=== PATIENT | male | born 1945 | race Caucasian/White ===

== ENCOUNTER 2023-06-26 12:58 | Emergency (ER) | payer MEDICARE, SELFPAY ==
[2023-06-26 13:02] VITALS: BP 154/74; PULSE 87; RESP 18; TEMP 36.8; O2SAT 98; BMI 21.8
--- NOTE | 2023-06-26 13:09 | DI.RAD.S_ITS ---
PROCEDURE: XR SHOULDER LT MIN 2V INDICATIONS: fall TECHNIQUE: 2 views of the shoulder were acquired. COMPARISON: None. FINDINGS: Bones: There is a nondisplaced fracture involving the humeral neck without displacement. Severe osteoarthritic changes. Suspect an intra-articular body in the superior glenohumeral joint. Mild acromioclavicular joint degeneration. Osteopenia. No suspicious bony lesions. Visualized ribs appear intact. Soft tissues: No suspicious soft tissue calcifications. IMPRESSION: 1. Nondisplaced humeral neck fracture. 2. Severe osteoarthritis. 3. Suspect an intra-articular body in the superior glenohumeral joint. 4. Osteopenia. Dictated by: Loyda Bennett M.D. on 06/26/2023 at 14:00 Approved by: Loyda Bennett M.D. on 06/26/2023 at 14:02
--- NOTE | 2023-06-26 14:23 | ED_ITS ---
HPI - Extremity Injury (Upper) <YESENIA Santana - Last Filed: 06/26/23 16:39> General Chief Complaint: Extremity Injury, Upper Stated Complaint: fell/lt shoulder inj Time Seen by Provider: 06/26/23 13:27 Source: patient Mode of arrival: Ambulatory History of Present Illness HPI narrative: 77-year-old male, daily smoker, presents to the emergency department with left shoulder pain status post fall approximately 2 hours ago. Patient was walking, lost his balance and fell over landing on his left shoulder. Patient denies hitting his head or any loss of consciousness. Patient is not on blood thinners. Patient has had an issue with falling over the last month due to losing balance. Extensive history with cancer, etc.. Related Data Previous Rx's Medication Instructions Recorded oxycodone 5 mg capsule 5 mg PO TID PRN pain #10 caps 06/26/23 Allergies Allergy/AdvReac Type Severity Reaction Status Date / Time codeine AdvReac Unknown Gastrointestinal Verified 06/26/23 14:43 Upset Review of Systems <YESENIA Santana - Last Filed: 06/26/23 16:39> Review of Systems Narrative: Narrative: See HPI. GENERAL: Denies chills, fatigue, fever, sweats. HEENT: Denies sinus pain, ear pain, sore throat, difficulty swallowing, dizziness. RESPIRATORY: Denies dyspnea, cough, wheezing, sputum. CARDIOVASCULAR: Denies chest pain, palpitations, edema. GASTROINTESTINAL: Denies nausea, vomiting, abdominal pain, diarrhea, constipation. MSK: Denies weakness. Endorses left shoulder pain. SKIN: Denies rash, skin lesions, or pruritis. NEUROLOGIC: Denies weakness, dizziness, headache, numbness, confusion. PSYCHIATRIC: No concerning psychosocial issues. Patient History <YESENIA Santana - Last Filed: 06/26/23 16:39> Social History Smoking Status: Current every day smoker Smoking Status: Current every day smoker tobacco type: cigarettes alcohol intake frequency: other Substance Use Type: does not use Exam <YESENIA Santana - Last Filed: 06/26/23 16:39> Narrative Exam Narrative: Exam Narrative: GENERAL: This is a well-nourished, well-developed patient, in no acute distress. HEAD: Atraumatic. Normocephalic. EYES: Pupils equal round and reactive. No scleral icterus, injection or drainage. ENT: Nose without bleeding, purulent drainage. Airway patent. NECK: Trachea midline. No JVD or lymphadenopathy. Nontender. No C-spine tenderness. CARDIOVASCULAR: Regular rate and rhythm without murmurs, peripheral pulses intact, cap refill <2 sec. RESPIRATORY: Normal respiratory rate and effort. MSK: Moves all extremities. Normal range of motion, no clubbing or edema. Neurovascularly intact. NEURO: A&O x 3. SKIN: Warm, dry, no rashes or lesions noted. SHOULDER: There is no swelling, bruising or asymmetry. There is tenderness to palpation over the proximal humerus, but no tenderness to AC joint, coracoid or glenoid processes. There is no soft tissue tenderness to palpation. Sensation grossly intact. Active and passive range of motion is limited due to pain. Resistive strength intact. Range of motion of the elbow is normal. The contralateral shoulder exam is unremarkable. Initial Vital Signs Initial Vital Signs: Vital Signs Temperature 98.2 F 06/26/23 13:02 Pulse Rate 87 06/26/23 13:02 Respiratory Rate 18 06/26/23 13:02 Blood Pressure 154/74 H 06/26/23 13:02 Pulse Oximetry 98 06/26/23 13:02 Oxygen Delivery Method Room Air 06/26/23 13:02 Reviewed <Morro Charles DO - Last Filed: 06/26/23 16:57> Initial Vital Signs Initial Vital Signs: Vital Signs Temperature 98.2 F 06/26/23 13:02 Pulse Rate 87 06/26/23 13:02 Respiratory Rate 18 06/26/23 13:02 Blood Pressure 154/74 H 06/26/23 13:02 Pulse Oximetry 98 06/26/23 13:02 Oxygen Delivery Method Room Air 06/26/23 13:02 Course <YESENIA Santana - Last Filed: 06/26/23 16:39> Orders Ordered: ED Orders 06/26/23 13:09 XR shoulder LT min 2V Stat 06/26/23 14:55 CT UE LT wo con Stat Discontinued Medications Hydrocodone Bitart/Acetaminophen (Hydrocodone/Acet 10/325 Tablet) 1 tab PO NOW ONE Stop: 06/26/23 14:41 Last Admin: 06/26/23 14:47 Dose: 1 tab Documented By: PANFILO Consultations Consultation #1: Dr. Rani Schreiber, orthopedic surgery, recommended a CT of left upper extremity. Vital Signs Vital signs: Vital Signs - 8 hr 06/26/23 13:02 Temperature 98.2 F Pulse Rate 87 Respiratory Rate 18 Blood Pressure 154/74 H Pulse Oximetry 98 Oxygen Delivery Method Room Air <Morro Charlse DO - Last Filed: 06/26/23 16:57> Orders Ordered: ED Orders 06/26/23 13:09 XR shoulder LT min 2V Stat 06/26/23 14:55 CT UE LT wo con Stat Discontinued Medications Hydrocodone Bitart/Acetaminophen (Hydrocodone/Acet 10/325 Tablet) 1 tab PO NOW ONE Stop: 06/26/23 14:41 Last Admin: 06/26/23 14:47 Dose: 1 tab Documented By: KF Vital Signs Vital signs: Vital Signs - 8 hr 06/26/23 13:02 Temperature 98.2 F Pulse Rate 87 Respiratory Rate 18 Blood Pressure 154/74 H Pulse Oximetry 98 Oxygen Delivery Method Room Air MDM - Extremity Injury (Upper) <YESENIA Santana - Last Filed: 06/26/23 16:39> Differential Diagnosis Differential diagnosis: Likely fracture of humerus; Unlikely dislocation of shoulder Imaging Data Extremity x-ray #1: Radiologist's Impression: [place] [address] XRay Report Signed Patient: Ramirez Foster MR#: [id number] : 1945 Acct:[id number] Age/Sex: 77 / M Date of Service: 06/26/23 Loc: ED Accession Number: [id number] Procedure: XR shoulder LT min 2V Ordering Provider: Morro Charles D.O. PROCEDURE: XR SHOULDER LT MIN 2V INDICATIONS: fall TECHNIQUE: 2 views of the shoulder were acquired. COMPARISON: None. FINDINGS: Bones: There is a nondisplaced fracture involving the humeral neck without displacement. Severe osteoarthritic changes. Suspect an intra-articular body in the superior glenohumeral joint. Mild acromioclavicular joint degeneration. Osteopenia. No suspicious bony lesions. Visualized ribs appear intact. Soft tissues: No suspicious soft tissue calcifications. IMPRESSION: 1. Nondisplaced humeral neck fracture. 2. Severe osteoarthritis. 3. Suspect an intra-articular body in the superior glenohumeral joint. 4. Osteopenia. Dictated by: Loyda Bennett M.D. on 06/26/2023 at 14:00 Approved by: Loyda Bennett M.D. on 06/26/2023 at 14:02 CT scan - Left UE: Radiologist's Impression: [address] [address] [address] Scan Report Signed Patient: Ramirez Foster MR#: [id number] : 1945 Acct:[id number] Age/Sex: 77 / M Date of Service: 06/26/23 Loc: ED Accession Number: [id number] Procedure: CT UE LT wo con Ordering Provider: Morro Robertson PROCEDURE: CT UE LT WO CON INDICATIONS: Left humerus fracture TECHNIQUE: Noncontrast 1-1.5 mm thick sections acquired from the acromioclavicular joint to the inferior scapula, with coronal and sagittal reformatting. COMPARISON: X-ray left shoulder, 06/26/2022. FINDINGS: Image quality: Excellent. Bones: There is a minimally displaced, comminuted humeral neck and proximal shaft fracture. Osteopenia. Severe osteoarthritic changes in glenohumeral joint with large periarticular osteophytes, subchondral sclerosis and cyst formation. There is a 2.6 cm intra-articular body in the superior glenohumeral joint. Mild acromioclavicular joint degeneration. Soft tissues: There is moderate glenohumeral joint effusion. No soft tissue mass or large hematoma. There is a 1.6 cm cyst in the left thyroid lobe. IMPRESSION: 1. Minimally displaced comminuted humeral neck and proximal shaft fracture. 2. Moderate glenohumeral joint effusion. 3. Severe osteoarthritis. 4. There is a 2.6 cm intra-articular body in the superior glenohumeral joint. 5. A 1.6 cm cyst in the left thyroid lobe. Consider thyroid ultrasound for follow-up Dictated by: Loyda Bennett M.D. on 06/26/2023 at 16:10 Approved by: Loyda Bennett M.D. on 06/26/2023 at 16:17 [facility] Narrative Medical decision making narrative: 77-year-old male with left shoulder injury. X-ray revealed a nondisplaced humeral neck fracture with intra-articular body in the superior glenohumeral joint. Discussed case with Dr. Charles of the ED. Contacted on-call orthopedic doctor, Dr. Rani Schreiber, who agreed that a CT may be helpful. Patient given Vicodin in clinic, fitted for a sling and short course of pain medications sent to pharmacy. Patient to follow up with Orthopedics 1st thing tomorrow morning. Discussed plan of care and return precautions with patient and spouse, who verbalized understanding and was agreeable with course of action. Discharge Plan Departure Patient Disposition: Home Clinical Impression: Fracture of humerus Qualifiers: Encounter type: initial encounter Humerus Location: surgical neck Fracture type: closed Fracture morphology: 2-part Fracture alignment: nondisplaced Laterality: left Qualified Code(s): S42.225A - 2-part nondisplaced fracture of surgical neck of left humerus, initial encounter for closed fracture Instructions: DI for Shoulder Fracture Activity Restrictions/Additional Instructions: *You have been diagnosed with left humerus fracture. We have placed you in a sling for your comfort. Recommend supportive care that includes cool compress to the shoulder, Tylenol or ibuprofen as needed for discomfort. Will provide a short course of pain medication. Please make sure you are stable on your feet before ambulating, especially after taking the pain medication. We have gotten a CT of your shoulder that the orthopedic surgeon will review. You will need to follow-up with orthopedics tomorrow morning. *What to do: *Please continue to take your regular medications as directed. [x ] New medication prescriptions sent to your pharmacy: [[facility] ] [ ] New medication written as a paper prescription [ ] No new medications given *Please follow up with your primary care provider in 2-3 days, call for an appointment. Let them know you were seen in the Emergency Department and that we ask that you be seen in follow up. We will electronically transmit a record of today's note if your PCP is in our system *If you do not have a primary care provider please contact the [facility] Resource line at [phone]. They will ask some questions about your medical history and help get you set up with a doctor in the community. ? Return to ER if you should have any new, worsening or concerning symptoms, such as worsening pain, severe headache, confusion, chest pain, difficulty breathing, fever greater than 101 F, shaking chills, persistent vomiting to the point that you cannot drink fluids, or other new or worsening symptoms. Prescriptions: New oxycodone 5 mg capsule 5 mg PO TID PRN (Reason: pain) Qty: 10 0RF Referrals: Jennifer Schreiber MD [Physician] - (Please evaluate and treat left humeral neck fracture.) Stand Alone Forms: Patient Portal/API ED Sign-out <Morro Charles DO - Last Filed: 06/26/23 16:57> Cosign ED Attending Cosignature Attestation: Dr Charles Co-Sign Statement: I was available for consultation during this patient's emergency department visit. This chart is signed by myself for administrative purposes only. I did not have direct contact with this patient during this visit. They were seen independently by the APC.
--- NOTE | 2023-06-26 14:28 | PC.NURSE ---
provider at bedside
[2023-06-26] MEDS: HYDROCODONE/ACET 10/325 TABLET 1 TAB PO (14:47)
--- NOTE | 2023-06-26 14:55 | DI.CT.S_ITS ---
PROCEDURE: CT UE LT WO CON INDICATIONS: Left humerus fracture TECHNIQUE: Noncontrast 1-1.5 mm thick sections acquired from the acromioclavicular joint to the inferior scapula, with coronal and sagittal reformatting. COMPARISON: X-ray left shoulder, 06/26/2022. FINDINGS: Image quality: Excellent. Bones: There is a minimally displaced, comminuted humeral neck and proximal shaft fracture. Osteopenia. Severe osteoarthritic changes in glenohumeral joint with large periarticular osteophytes, subchondral sclerosis and cyst formation. There is a 2.6 cm intra-articular body in the superior glenohumeral joint. Mild acromioclavicular joint degeneration. Soft tissues: There is moderate glenohumeral joint effusion. No soft tissue mass or large hematoma. There is a 1.6 cm cyst in the left thyroid lobe. IMPRESSION: 1. Minimally displaced comminuted humeral neck and proximal shaft fracture. 2. Moderate glenohumeral joint effusion. 3. Severe osteoarthritis. 4. There is a 2.6 cm intra-articular body in the superior glenohumeral joint. 5. A 1.6 cm cyst in the left thyroid lobe. Consider thyroid ultrasound for follow-up Dictated by: Loyda Bennett M.D. on 06/26/2023 at 16:10 Approved by: Loyda Bennett M.D. on 06/26/2023 at 16:17
== END 2023-06-26 15:37 | disposition home or self-care (01) ==
PROVIDERS: Emergency Provider Registered Nurse
DX: S42.225A 2-part nondisplaced fracture of surgical neck of left humerus, initial encounter for closed fracture (principal); W18.30XA Fall on same level, unspecified, initial encounter
CPT/HCPCS: 73030; 73200; 99284

== ENCOUNTER 2023-08-22 15:01 | Emergency (ER) | payer MEDICARE, SELFPAY ==
[2023-08-22] VITALS (13 sets, daily range): BP systolic 96–134; BP diastolic 63–79; PULSE 88–103; RESP 15–25; TEMP 36.8–36.9; O2SAT 93–97; BMI 22.1
--- NOTE | 2023-08-22 15:28 | DI.RAD.S_ITS ---
PROCEDURE: XR CHEST 1V INDICATIONS: fall TECHNIQUE: One view of the chest was acquired. COMPARISON: None. FINDINGS: Surgical changes and devices: Sutures within the left apex. Lungs and pleura: Lungs are clear. No pleural effusions or pneumothorax. Mediastinum: Mediastinal contours appear normal. Heart size is normal. Bones and chest wall: No suspicious bony lesions. Overlying soft tissues appear unremarkable. IMPRESSION: No acute cardiopulmonary abnormality is seen. Dictated by: Cem Smiley M.D. on 08/22/2023 at 16:11 Approved by: Cem Smiley M.D. on 08/22/2023 at 16:11
--- NOTE | 2023-08-22 15:28 | DI.CT.S_ITS ---
PROCEDURE: CT HEAD/BRAIN WO CON INDICATIONS: falls TECHNIQUE: Noncontrast 4.5 mm thick angled axial sections acquired from the foramen magnum to the vertex, with coronal and sagittal reformats. For radiation dose reduction, the following was used: automated exposure control, adjustment of mA and/or kV according to patient size. COMPARISON: None. FINDINGS: Image quality: Motion degraded. CSF spaces: Basal cisterns are patent. No extra-axial fluid collections. The ventricles are symmetric in size and shape. Brain: No intracranial bleeds or masses. Encephalomalacia within the left inferior frontal lobe, may be sequela of prior trauma. There is cerebral volume loss for age, with resultant ventricular and sulcal prominence. There are periventricular and deep white matter chronic small vessel ischemic changes. There is intracranial internal carotid artery atherosclerosis. Skull and face: Posttraumatic changes to the left inferior frontal bone Calvarium and visualized facial bones appear intact, without suspicious lesions. Sinuses: Visualized sinuses and mastoids are clear. IMPRESSION: No acute intracranial pathology. Posttraumatic changes in the inferior left frontal lobe. Dictated by: Cem Smiley M.D. on 08/22/2023 at 16:13 Approved by: Cem Smiley M.D. on 08/22/2023 at 16:15
[2023-08-22 15:54] LABS: Hematocrit 27.3 % (41-53); Hemoglobin 8.7 g/dL (13.5-17.5); Mean Corpuscular HGB Conc 31.8 % (30-36); Mean Corpuscular Volume 88.2 fL (80-100); Platelet Count 476 X10^3/uL (150-400); Red Blood Cell Count 3.09 X10^6/uL (4.5-5.9)
[2023-08-22 15:55] LABS: Add Manual Diff / Slide Review YES; White Blood Cell Count 33.6 X10^3/uL (4.5-11.0)
[2023-08-22 16:01] LABS: INR 1.1 (0.9-1.3); Prothrombin Time 13.1 SECONDS (9.4-12.5)
[2023-08-22 16:03] LABS: Lactate (Lactic Acid) 0.9 mmol/L (0.7-2.1)
[2023-08-22 16:04] LABS: Alanine Aminotransferase 18 IU/L (<50); Albumin 3.3 g/dL (3.5-5.0); Albumin Globulin Ratio 0.9 (1.0-2.8); Alkaline Phosphatase 110 U/L (38-126); Aspartate Aminotransferase 27 IU/L (17-59); BUN Creatinine Ratio 17.4 (6-22); Bilirubin Total 0.7 mg/dL (0.2-1.3); Blood Urea Nitrogen 23 mg/dL (9-20); Calcium 9.4 mg/dL (8.4-10.2); Carbon Dioxide 27 mmol/L (22-32); Chloride 104 mmol/L (98-107); Creatine Kinase 24 U/L (55-170); Estimated Glomerular Filt Rate 56 mL/min (>60); Globulin 3.6 g/dL (1.7-4.1); Glucose 95 mg/dL (80-110); HEMOLYSIS < 15 (0-50); Potassium 3.9 mmol/L (3.4-5.1); Sodium 138 mmol/L (137-145); Total Protein 6.9 g/dL (6.3-8.2)
[2023-08-22 16:11] LABS: PTT Partial Thromboplastin Tim 29 SECONDS (25.1-36.5)
[2023-08-22 16:15] LABS: Appearance Urine UA CLOUDY; Bilirubin Urine UA NEGATIVE (NEGATIVE); Color Urine UA PINK; Glucose Urine UA NEGATIVE (Negative); Ketones Urine UA NEGATIVE (NEGATIVE); Leukocyte Esterase Urine UA 3+ (NEGATIVE); Nitrite Urine UA NEGATIVE (Negative); Occult Blood Urine UA 3+ (Negative); Protein Urine UA 3+ (Negative); Urobilinogen Urine UA 0.2 E.U./dL (0.2)
[2023-08-22 16:16] LABS: Troponin I < 0.012 ng/mL (0.01-0.034)
[2023-08-22 16:20] LABS: Procalcitonin 0.23 ng/mL (<0.5)
[2023-08-22 16:23] LABS: Bacteria Urine Few (2-10); Culture Indicated Urine Specimen Cultured; RBC Urine 30-100/HPF (0-5/HPF); Squamous Epithelial Cell Urine 0-1 /HPF (0-5/HPF); Urine Volume 10mL (spun); WBC Urine 30-100/HPF (0-5/HPF)
[2023-08-22 16:23] LABS: Total Cells Counted 200
[2023-08-22 16:24] LABS: Lymphocytes Percent Manual 2.5 % (25-45); Monocytes Percent Manual 4.5 % (2-11); Neutrophils Absolute Manual 31248 /uL (3000-5900)
[2023-08-22 16:25] LABS: Anisocytosis 1+
[2023-08-22 16:59] LABS: Adenovirus Not Detected (Not Detect); B. parapertussis Not Detected (Not Detecte); Bordetella pertussis Not Detected (Not Detect); Chlamydophila pneumoniae Not Detected (Not Detect); Coronavirus 229E Not Detected (Not Detect); Coronavirus HKU1 Not Detected (Not Detect); Coronavirus NL 63 Not Detected (Not Detect); Coronavirus OC43 Not Detected (Not Detect); Human Metapneumovirus Not Detected (Not Detect); Human Rhinovirus/Enterovirus Not Detected (Not Detect); Influenza A Not Detected (Not Detect); Influenza B Not Detected (Not Detect); Mycoplasma pneumoniae Not Detected (Not Detect); Parainfluenza Virus 1 Not Detected (Not Detect); Parainfluenza Virus 2 Not Detected (Not Detect); Parainfluenza Virus 3 Not Detected (Not Detect); Parainfluenza Virus 4 Not Detected (Not Detect); Respiratory Syncytial Virus Not Detected (Not Detect); SARS- CoV-2 Not Detected (Not Detecte)
--- NOTE | 2023-08-22 17:13 | ED_ITS ---
HPI - Sepsis General Chief Complaint: Urogenital-Male Evaluation Sepsis Screen: Possible Sepsis Risk Sepsis Infection Criteria Present: Documented Infection Narrative: Patient 77-year-old male history of bladder cancer prostate cancer recent admission at [facility] with bilateral nephrostomy tubes placed states that he has been for maybe a week he had an extended stay there. She is here today because he is more confused. She reports that he wondered off last night, he told her that she fell there is no obvious sign of trauma not on any anticoagulation we know of. He is chronic ongoing groin pain which states is his cancer pain. She reports that he is still on an antibiotic which looks like Levaquin every 48 hours. He is afebrile he is able to answer questions and follow commands but overall appears weak. No significant cough chest pain or shortness of breath. Patient History Social History Smoking Status: Current every day smoker Smoking Status: Current every day smoker tobacco type: cigarettes alcohol intake frequency: other Substance Use Type: does not use Exam Initial Vital Signs Initial Vital Signs: Vital Signs Pulse Rate 103 H 08/22/23 15:19 Blood Pressure 96/72 08/22/23 15:19 Pulse Oximetry 96 08/22/23 15:19 GENERAL: Chronically ill cachectic 77-year-old male HEENT: Head atraumatic,EOMI, pupils reactive, face symmetric, moist mucous membranes CARDIOVASCULAR: Regular rate and rhythm without murmurs, rubs or gallops. RESPIRATORY: Breath sounds equal bilaterally, no wheezes rales or rhonchi. ABDOMEN: Soft, nontender. Normoactive bowel sounds all 4 quadrants. No guarding or rebound. EXTREMITIES: Normal range of motion, no clubbing or edema. Neurovascularly intact NEUROLOGICAL: Alert and oriented x4. SKIN: Warm, dry, no laceration, no petechiae, no rashes or lesions. Course Orders Ordered: Discontinued Medications Hydromorphone HCl (Hydromorphone 0.5 Mg Inj) 0.5 mg IV NOW ONE Stop: 08/22/23 17:23 Last Admin: 08/22/23 17:28 Dose: 0.5 mg Documented By: EYAD Cefepime HCl 1 gm/ Sodium (Chloride) 100 mls @ 200 mls/hr IV NOW ONE Stop: 08/22/23 17:04 Last Infusion: 08/22/23 18:05 Dose: Infused Documented By: Admin: 08/22/23 17:15 Dose: 200 mls/hr Documented By: EYAD Vancomycin HCl (Vancomycin) 1,000 mg in 200 mls @ 200 mls/hr IV NOW ONE Stop: 08/22/23 18:02 Last Infusion: 08/22/23 19:07 Dose: Infused Documented By: Admin: 08/22/23 18:06 Dose: 200 mls/hr Documented By: MARIO Sodium Chloride (Normal Saline 0.9%) 1,000 mls @ 1,000 mls/hr IV BOLUS ONE Stop: 08/22/23 18:24 Last Infusion: 08/22/23 19:01 Dose: Infused Documented By: Admin: 08/22/23 17:29 Dose: 1,000 mls/hr Documented By: EYAD Vital Signs Vital signs: Vital Signs - 8 hr 08/22/23 15:19 08/22/23 15:19 08/22/23 15:25 Temperature Pulse Rate 103 H Respiratory Rate Blood Pressure 96/72 129/69 Pulse Oximetry 96 Oxygen Delivery Method 08/22/23 15:25 08/22/23 15:30 08/22/23 15:30 Temperature 98.5 F Pulse Rate 99 H 100 H Respiratory Rate 16 22 Blood Pressure 96/72 124/65 Pulse Oximetry 97 96 Oxygen Delivery Method Room Air 08/22/23 15:30 08/22/23 16:00 08/22/23 16:13 Temperature Pulse Rate 98 H 93 H Respiratory Rate 15 18 Blood Pressure 120/69 Pulse Oximetry 96 94 Oxygen Delivery Method 08/22/23 16:13 08/22/23 16:30 08/22/23 16:30 Temperature Pulse Rate 92 H 96 H Respiratory Rate 25 H 23 Blood Pressure 132/69 Pulse Oximetry 97 95 Oxygen Delivery Method Sepsis Evaluation (ED) Triage Screening Sepsis Screen: Possible Sepsis Risk Level 1 - Infection Sepsis Infection Criteria Present: Documented Infection Response It is my opinion that his patient have a likely infectious etiology for meeting sepsis criteria: Does Not Fluid calculation based on 30 mL/kg within 1hr of criteria: N/A Antibiotics initiated within 1 hr of Sepis dx: Yes Tissue Perfusion Reassessed within 6 hrs of infusion start time: No MDM - Sepsis Lab Data 08/22/23 15:20 04/01/24 15:20 Labs: Lab Results 08/22/23 08/22/23 Range/Units 15:20 16:05 WBC 33.6 H* (4.5-11.0) X10^3/uL RBC 3.09 L (4.5-5.9) X10^6/uL Hgb 8.7 L (13.5-17.5) g/dL Hct 27.3 L (41-53) % MCV 88.2 (80-100) fL MCH 28.0 (26-34) PG MCHC 31.8 (30-36) % RDW 16.0 H (11.6-14.8) % Plt Count 476 H (150-400) X10^3/uL Neut % (Auto) Not Reportable Lymph % (Auto) Not Reportable [place] % (Auto) Not Reportable Eos % (Auto) Not Reportable Baso % (Auto) Not Reportable Lymph # (Auto) Not Reportable [place] # (Auto) Not Reportable Baso # (Auto) Not Reportable Total Counted 200 Seg Neutrophils % 93.0 H (38-70) % Lymphocytes % (Manual) 2.5 L (25-45) % Monocytes % (Manual) 4.5 (2-11) % Neutrophils # (Manual) 15429 H (6063-5062) /uL RBC Morphology See below Anisocytosis 1+ H PT 13.1 H (9.4-12.5) SECONDS INR 1.1 (0.9-1.3) APTT 29 (25.1-36.5) SECONDS Sodium 138 (137-145) mmol/L Potassium 3.9 (3.4-5.1) mmol/L Chloride 104 (98-107) mmol/L Carbon Dioxide 27 (22-32) mmol/L BUN 23 H (9-20) mg/dL Creatinine 1.32 H (0.66-1.25) mg/dL Estimated GFR 56 L (>60) mL/min BUN/Creatinine Ratio 17.4 (6-22) Glucose 95 (80-110) mg/dL Lactate 0.9 (0.7-2.1) mmol/L Calcium 9.4 (8.4-10.2) mg/dL Total Bilirubin 0.7 (0.2-1.3) mg/dL AST 27 (17-59) IU/L ALT 18 (<50) IU/L Alkaline Phosphatase 110 (38-126) U/L Total Creatine Kinase 24 L (55-170) U/L Troponin I < 0.012 (0.01-0.034) ng/mL Total Protein 6.9 (6.3-8.2) g/dL Albumin 3.3 L (3.5-5.0) g/dL Globulin 3.6 (1.7-4.1) g/dL Albumin/Globulin Ratio 0.9 L (1.0-2.8) Procalcitonin 0.23 (<0.5) ng/mL Urine Color [place] Urine Appearance Cloudy Urine pH 7.0 (4.5-8.0) Ur Specific [place] 1.020 (1.000-1.035) Urine Protein 3+ H (Negative) Urine Glucose (UA) Negative (Negative) g/dL Urine Ketones Negative (NEGATIVE) Urine Occult Blood 3+ H (Negative) Urine Nitrate Negative (Negative) Urine Bilirubin Negative (NEGATIVE) Urine Urobilinogen 0.2 (0.2) E.U./dL Ur Leukocyte Esterase 3+ H (NEGATIVE) Urine RBC 30-100/hpf H (0-5/HPF) Urine WBC 30-100/hpf H (0-5/HPF) Ur Squamous Epith Cells 0-1 /hpf (0-5/HPF) Urine Bacteria Few (2-10) H (None) Urine Yeast 5-10/hpf H (None) Ur Culture Indicated? Specimen cultured Vol Urine Centrifuged 10ml (spun) Chlamy pneumoniae PCR Not detected (Not Detect) Adenovirus (PCR) Not detected (Not Detect) B.parapertussis DNA PCR Not detected (Not Detecte) Coronavirus OC43 (PCR) Not detected (Not Detect) Coronavirus HKU1 (PCR) Not detected (Not Detect) Coronavirus 229E (PCR) Not detected (Not Detect) SARS-CoV-2 (PCR) Not detected (Not Detecte) Coronavirus NL63 (PCR) Not detected (Not Detect) Human Metapneumovir PCR Not detected (Not Detect) Influenza Type A (PCR) Not detected (Not Detect) Influenza Type B (PCR) Not detected (Not Detect) M. pneumoniae (PCR) Not detected (Not Detect) Parainfluenza 1 (PCR) Not detected (Not Detect) Parainfluenza 2 (PCR) Not detected (Not Detect) Parainfluenza 3 (PCR) Not detected (Not Detect) Parainfluenza 4 (PCR) Not detected (Not Detect) RSV (PCR) Not detected (Not Detect) Entero/Rhino (PCR) Not detected (Not Detect) MDM Narrative Medical decision making narrative: MDM CC: Confusion wandering Complicating co-morbidities: Bladder cancer prostate cancer Corroborating data: [ ] Data collected from: [ ] Medical records reviewed: Spoke with physician from [facility] Differential considered: Sepsis intracranial hemorrhage Exam documented above, pertinent findings include: Chronically ill male nephrostomy tube with urine bilaterally Mxi catheter with urine Lab Test results independently reviewed as above. 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 Ybarra from [facility] is very familiar with patient she took care of him while he was admitted there. After multiple hours of trying to get records she kindly spoke with me we went over test results today. She reports that he had elevated white count at that time of 33 as well they thought it was secondary to cancer. He was infected with E coli bacteremia he is currently on Levaquin every other day. During his hospital stay he got pretty significant delirium. She also states that family has been set up with home health care. had reported that patient was wandering and having confusion prior to hospital admission and then confusion got worse during hospital admission. Not surprising that he wandered off last night. At this time blood work seems stable, nephrostomy tubes are working. Treatments: IV antibiotics, IV fluids Re-evaluations: [ ] Discussion: Patient chronically ill weak but no neuro deficits, consulting with hospitalist at [facility] patient seems to be at baseline. He does have some baseline confusion probably worsened by recent infection and hospitalization. Head CT today is negative for any acute event. Long discussion with . She does have help home health has started this week they have another person coming tomorrow. Talked about the only other option if this does not work would be placement which she has not quite ready for. At this time no need for admission patient is discharged. Discharge Plan Departure Patient Disposition: Home Clinical Impression: Delirium Instructions: Delirium Activity Restrictions/Additional Instructions: *You have been diagnosed with delirium *What to do: At this time blood work is overall stable no cause of wandering. Continue to use home health *Continue to take medications as directed *Follow up with your primary care provider in 2-3 days or call [phone] *Return to ER if you should have increasing confusion any new, worsening or concerning symptoms Prescriptions: No Action oxycodone 5 mg capsule 5 mg PO TID PRN (Reason: pain) Qty: 10 0RF Referrals: Miscellaneous,Doctor, [Primary Care Provider] - Stand Alone Forms: Patient Portal/API
[2023-08-22] MEDS: CEFEPIME 1 GM in SODIUM CHLORIDE 0.9% 100 ML IV (17:15)
--- NOTE | 2023-08-22 17:22 | DI.CT.S_ITS ---
PROCEDURE: CT CHEST ABD PEL W CON INDICATIONS: bladder cancer prostte cancer, nephrostomy tubes, pain TECHNIQUE: After the administration of intravenous contrast, 5 mm thick sections acquired from the lung apices to the symphysis. 5 mm coronal and sagittal reformats were performed, with additional 7 mm MIP reformats through the lungs. For radiation dose reduction, the following was used: automated exposure control, adjustment of mA and/or kV according to patient size. COMPARISON: None. FINDINGS: Image quality: Excellent. CHEST: Lower Neck: No enlarged lymph nodes. Thyroid: Bilateral thyroid nodules, measuring 1.3 cm in left thyroid lobe and 0.7 cm in the right thyroid lobe.. Axillae: No enlarged lymph nodes. Chest Wall: Unremarkable. Lungs and Pleura: Moderate emphysema. There are multiple lung nodules bilaterally, more numerous in right lung. Reference nodules: -0.9 cm; right middle lobe; series 3 image 184. Left basilar scars and atelectasis. No pneumothorax or pleural effusions. No consolidation. Heart: Heart size is normal. No pericardial effusion. Thoracic Vessels: The aorta and pulmonary arteries demonstrate normal size. Mediastinum and [place]: No enlarged lymph nodes. Esophagus: No wall thickening. Small hiatal hernia. ABDOMEN: Liver: There is a 1.7 cm indeterminate hypodensity in the lateral aspect of the anterior segment of the right hepatic lobe. Gallbladder: No radiopaque gallstones or wall thickening. Biliary ducts: No biliary dilation. Pancreas: No ductal dilation. Spleen: Size is within normal limits. Adrenal Glands: No adrenal nodules. Kidneys and Ureters: Bilateral percutaneous nephrostomies. Mild left hydronephrosis. No solid mass. No complex renal cystic lesion which requires follow up. Stomach and Bowel: Normal bowel caliber, without significant wall thickening. Diverticulosis without diverticulitis. There is a large amount of stool in colon. Peritoneum: No abnormal intraperitoneal fluid. No free air. Ventral Wall: No significant ventral hernia. Abdominal Nodes: No retroperitoneal or mesenteric adenopathy by size criteria. Vessels: Aorta and inferior vena cava are normal in size. PELVIS: Pelvic Organs: Unremarkable. Bladder: There is irregular bladder wall thickening consistent with known bladder cancer. There is a Mix catheter. The tip of the catheter appears within the bladder. Prostate is not well seen because of strong metallic artifact from bilateral hip arthroplasties Pelvic Nodes: No enlarged lymph nodes. Miscellaneous: No inguinal hernias are seen. Bones: Bilateral hip arthroplasties with strong metallic artifacts partially obscure pelvis. No aggressive osseous abnormality. Scoliosis. Moderate to severe spondylitic changes in lower cervical spine, thoracic and lumbar spine. IMPRESSION: Suboptimal Cancer evaluation in absence of IV and oral contrast. 1. Multiple lung nodules are present bilaterally, more numerous in right lung. An infectious or inflammatory process is favored. Neoplasm is less likely but not entirely excluded. 2. Left left basilar scars and atelectasis. 3. A 1.7 cm indeterminate hepatic hypodensity. Consider further evaluation with MRI. 4. 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 5. Diverticulosis without diverticulitis. 6. A large amount of stool in colon. 7. Bilateral ureteral stents. Mild left hydronephrosis is present. 8. Prostate and inferior aspect of the urinary bladder is obscured by strong metallic artifacts from bilateral hip arthroplasties. Dictated by: Loyda Bennett M.D. on 08/22/2023 at 18:50 Approved by: Loyda Bennett M.D. on 08/22/2023 at 19:00
[2023-08-22] MEDS: HYDROMORPHONE 0.5 MG INJ IV (17:28)
[2023-08-22] MEDS: SODIUM CHLORIDE 0.9% 1,000 ML 1000 ML IV (17:29)
[2023-08-22] MEDS: VANCOMYCIN 1,000 MG/200 ML PIGGYBACK 200 MG IV (18:06)
[2023-09-01 08:06] LABS: Misc. to WA State Lab SEE SCANNED REPORTS
== END 2023-08-22 19:25 | disposition home or self-care (01) ==
PROVIDERS: Emergency Provider Emergency Medicine
DX: R41.0 Disorientation, unspecified (principal); C61 Malignant neoplasm of prostate; Z20.822 Contact with and (suspected) exposure to COVID-19
CPT/HCPCS: 36415; 70450; 71045; 71260; 74177; 80053; 81001; 82550; 83605; 84145; 84484; 85007; 85025; 85610; 85730; 87040; 87077; 87086; 87633; 93005; 93010; 96365; 96367; 96375; 99284; J0692; J1170; Q9967

== ENCOUNTER 2023-09-01 09:06 | Emergency (ER) | payer MEDICARE, SELFPAY ==
[2023-09-01] VITALS (13 sets, daily range): BP systolic 121–153; BP diastolic 60–82; PULSE 91–107; RESP 17–29; TEMP 37.3–37.4; O2SAT 96–98; BMI 24.3
--- NOTE | 2023-09-01 09:11 | DI.RAD.S_ITS ---
PROCEDURE: XR HIP W PEL IF DONE RT 2V INDICATIONS: fall hip pain TECHNIQUE: AP pelvis with lateral view(s) of the right hip(s). COMPARISON: None. FINDINGS: Bones: Bilateral hip arthroplasties. Left hip arthroplasty incompletely imaged. Right hip arthroplasty unremarkable with no evidence of hardware failure or loosening. No fractures or dislocations. Pelvic ring appears intact. No suspicious bony lesions. Soft tissues: The visualized bowel gas pattern is normal. No suspicious soft tissue calcifications. IMPRESSION: Expected appearance of right hip arthroplasty. No acute fracture or dislocation. Dictated by: Abdirahman Calixto M.D. on 09/01/2023 at 10:54 Approved by: Abdirahman Calixto M.D. on 09/01/2023 at 10:55
--- NOTE | 2023-09-01 09:20 | PC.NURSE ---
Pt has 2x nephrostomy and 1x urinary catheter tubes, denies history or urinary complications and states ask the hospital when asking patient why he has the catheters. PT states his is his caregiver, and says she does a great job.
--- NOTE | 2023-09-01 09:32 | ED_ITS ---
HPI - Fall General Chief Complaint: Fall Stated Complaint: GLF T-1 Time Seen by Provider: 09/01/23 09:11 Source: patient, EMS, RN notes reviewed and old records reviewed Mode of arrival: EMS Limitations: no limitations History of Present Illness HPI Narrative: 77-year-old male history of bladder cancer, prostate cancer with bilateral nephrostomy tubes who had a ground level fall yesterday. Patient states he lost his balance fell onto his right hip. States he was able to get himself up off the ground and did walk some yesterday but was painful. Has not tried to walk or move today parts quite a bit of pain in the right hip. He denies injuries elsewhere. Denies hitting his head. No anticoagulants reported. No neck or back pain, no chest pain or shortness of breath. No lightheadedness or passing out. No nausea or vomiting. Denies any diarrhea or constipation. Has Mix catheter as well as 2 urostomy tubes on the right and left which appeared to be draining appropriately. Patient records note that on August 21 he was seen here, had a white count of 33, had E coli bacteremia while hospitalized with significant delirium. Related Data Previous Rx's Medication Instructions Recorded oxycodone 5 mg capsule 5 mg PO TID PRN pain #10 caps 06/26/23 oxycodone 5 mg tablet 5 mg PO Q6H PRN pain #10 tabs 09/01/23 Allergies Allergy/AdvReac Type Severity Reaction Status Date / Time codeine AdvReac Unknown Gastrointestinal Verified 09/01/23 09:12 Upset Review of Systems Review of Systems ROS Unobtainable: All systems reviewed & are unremarkable except as noted in HPI and below Patient History Social History Smoking Status: Current every day smoker Smoking Status: Current every day smoker tobacco type: cigarettes alcohol intake frequency: other Substance Use Type: does not use Exam Narrative Exam Narrative: GEN: Patient appears in mild distress. HEAD: No evidence of trauma, no raccoon/Farooq sign. NECK: Nontender, painless range of motion, trachea midline Negative Nexus criteria, midline line tenderness, distracting injury, altered mental status, neuro deficit, recent EtOH. EYES: PERRLA, EOMI ENT: External inspection normal, trachea is midline, Nares are clear, no septal hematoma, no dental or oral injury, airway is normal and with normal occlusion, No bony tenderness RESP: Chest is nontender and has symmetric movement, no ecchymosis, breath sounds are normal no crackles, wheezes or rales CVS: Heart sounds are normal, no murmur noted, No JVD. ABG/GI: Nontender, soft, normal bowel sounds, no distention, no organomegaly, pelvic rock is negative, patient has bilateral nephrostomy tubes I do appear to be in place. They are both draining yellow urine as well as a urethral catheter which is draining as well. NEURO: Oriented AOx3, neuro is grossly intact, sensation and motor is normal all 4 extremities moving, cranial nerves II through XII are intact, GCS is 15 PSYCH: Normal mood and affect SKIN: Intact, warm and dry, no crepitus and without decubitus BACK: No CVA tenderness, no vertebral tenderness, no step-off's, no crepitus EXT: Atraumatic, patient does not have any pain over the right or left trochanter but does have with movement of the right lower extremity. Patient is quite uncomfortable with passive or active movement. No obvious swelling ecchymosis or skin changes. No bony tenderness on examination. Patient does have some mild tenderness over the thigh with squeeze but also states my hand is very cold. No pedal edema, normal color and temperature, normal range of motion of extremities patient's left lower extremity as well as bilateral upper extremities on examination. Initial Vital Signs Initial Vital Signs: Vital Signs Temperature 99.3 F 09/01/23 09:08 Pulse Rate 99 H 09/01/23 09:08 Respiratory Rate 18 09/01/23 09:08 Blood Pressure 135/74 09/01/23 09:08 Pulse Oximetry 97 09/01/23 09:08 Oxygen Delivery Method Room Air 09/01/23 09:08 Course Orders Ordered: ED Orders 09/01/23 09:11 XR hip w pel if done RT 2V Stat 09/01/23 09:50 CBC Auto Diff [Complete Blood Count AUTO DIFF] Stat CMP [Comprehensive Metabolic Panel] Stat Lactate (Lactic Acid) Stat Lipase Stat PTT Partial Thromboplastin Jayant Stat Procalcitonin Stat Prothrombin Time INR Stat 09/01/23 10:18 Blood Culture Stat 09/01/23 11:05 CT kidney ureter bladder (KUB) Stat 09/01/23 11:54 UA Complete [Urinalysis and Microscopic] Stat Urine Culture Stat Discontinued Medications Morphine Sulfate (Morphine 4 Mg/Ml Inj) 4 mg IV NOW ONE Stop: 09/01/23 09:44 Last Admin: 09/01/23 09:51 Dose: 4 mg Documented By: LEW Ondansetron HCl (Ondansetron 4 Mg/2 Ml Inj) 4 mg IV NOW ONE Stop: 09/01/23 09:44 Last Admin: 09/01/23 09:51 Dose: 4 mg Documented By: LEW Oxycodone/Acetaminophen (Oxycodone/Acetaminophen 5/325 Tablet) 2 tab PO NOW ONE Stop: 09/01/23 13:46 Last Admin: 09/01/23 13:50 Dose: 2 tab Documented By: MARIA ESTHER Vital Signs Vital signs: Vital Signs - 8 hr 09/01/23 10:30 09/01/23 10:30 09/01/23 10:44 Pulse Rate 95 H Respiratory Rate Blood Pressure 131/68 153/73 H Pulse Oximetry 97 Oxygen Delivery Method 09/01/23 10:44 09/01/23 11:00 09/01/23 11:01 Pulse Rate 93 H 93 H Respiratory Rate 20 24 Blood Pressure 128/66 Pulse Oximetry 97 96 Oxygen Delivery Method 09/01/23 11:01 09/01/23 11:20 09/01/23 11:20 Pulse Rate 92 H 94 H Respiratory Rate 19 18 Blood Pressure 126/72 Pulse Oximetry 97 96 Oxygen Delivery Method 09/01/23 11:30 09/01/23 11:30 09/01/23 12:00 Pulse Rate 91 H Respiratory Rate 18 Blood Pressure 121/60 130/66 Pulse Oximetry 96 Oxygen Delivery Method 09/01/23 12:00 09/01/23 12:30 09/01/23 12:30 Pulse Rate 93 H 94 H Respiratory Rate 29 H 19 Blood Pressure 142/82 H Pulse Oximetry 96 Oxygen Delivery Method Room Air MDM - Fall Lab Data 09/01/23 09:50 09/01/23 09:50 Labs: Lab Results 09/01/23 09/01/23 Range/Units 09:50 11:54 WBC 27.1 H (4.5-11.0) X10^3/uL RBC 3.23 L (4.5-5.9) X10^6/uL Hgb 9.1 L (13.5-17.5) g/dL Hct 27.9 L (41-53) % MCV 86.4 (80-100) fL MCH 28.2 (26-34) PG MCHC 32.6 (30-36) % RDW 16.0 H (11.6-14.8) % Plt Count 402 H (150-400) X10^3/uL Neut % (Auto) 90.3 H (50-75) % Lymph % (Auto) 5.1 L (25-40) % [place] % (Auto) 4.3 (3-14) % Eos % (Auto) 0.1 L (2-4) % Baso % (Auto) 0.2 (0-2) % Neut # (Auto) 98460 H (5893-1431) /uL Lymph # (Auto) 1400 (2483-3430) /uL [place] # (Auto) 1200 H (0-900) /uL Eos # (Auto) 0 (0-450) /uL Baso # (Auto) 0 (0-100) /uL PT 11.8 (9.4-12.5) SECONDS INR 1.0 (0.9-1.3) APTT 29 (25.1-36.5) SECONDS Sodium 138 (137-145) mmol/L Potassium 3.8 (3.4-5.1) mmol/L Chloride 108 H (98-107) mmol/L Carbon Dioxide 24 (22-32) mmol/L BUN 46 H (9-20) mg/dL Creatinine 2.11 H (0.66-1.25) mg/dL Estimated GFR 32 L (>60) mL/min BUN/Creatinine Ratio 21.8 (6-22) Glucose 93 (80-110) mg/dL Lactate 1.0 (0.7-2.1) mmol/L Calcium 8.1 L (8.4-10.2) mg/dL Total Bilirubin 0.5 (0.2-1.3) mg/dL AST 21 (17-59) IU/L ALT 13 (<50) IU/L Alkaline Phosphatase 112 (38-126) U/L Total Protein 6.0 L (6.3-8.2) g/dL Albumin 2.7 L (3.5-5.0) g/dL Globulin 3.3 (1.7-4.1) g/dL Albumin/Globulin Ratio 0.8 L (1.0-2.8) Lipase 19 L (23-300) U/L Procalcitonin 0.38 (<0.5) ng/mL Urine Color Yellow Urine Appearance Turbid Urine pH 7.0 (4.5-8.0) Ur Specific [place] 1.010 (1.000-1.035) Urine Protein 3+ H (Negative) Urine Glucose (UA) Negative (Negative) g/dL Urine Ketones Negative (NEGATIVE) Urine Occult Blood 3+ H (Negative) Urine Nitrate Positive H (Negative) Urine Bilirubin Negative (NEGATIVE) Urine Urobilinogen 0.2 (0.2) E.U./dL Ur Leukocyte Esterase 2+ H (NEGATIVE) Urine RBC 5-10/hpf H (0-5/HPF) Urine WBC 5-10/hpf H (0-5/HPF) Ur Squamous Epith Cells 1-5 /hpf (0-5/HPF) Amorphous Sediment 3+ Urine Bacteria Moderate (10-30) H (None) Hyaline Casts 5-10/lpf (None) Granular Casts 1-5/lpf (None) Urine Yeast 30-100/hpf H (None) Ur Culture Indicated? Specimen cultured Vol Urine Centrifuged 10ml (spun) Imaging Data CT scan - abdomen/pelvis: Radiologist's Impression: [place] [address] CT Scan Report Signed Patient: Ramirez Foster MR#: [id number] : 1945 Acct:[id number] Age/Sex: 77 / M Date of Service: 09/01/23 Loc: ED Accession Number: [id number] Procedure: CT kidney ureter bladder (KUB) Ordering Provider: Denisha Abreu D.O. PROCEDURE: CT KIDNEY URETER BLADDER (KUB) INDICATIONS: fall, hip pain, creatinine elevated, nephrostomy b/l TECHNIQUE: Axial sections were acquired from the lung bases to the pubic symphysis. Coronal and sagittal reformats were performed. For radiation dose reduction, the following was used: automated exposure control, adjustment of mA and/or kV according to patient size. COMPARISON: [facility], CT, CT CHEST ABD PEL W CON, 08/22/2023, 17:30. FINDINGS: Image quality: Diagnostic. Lower Chest: Minimal bilateral pleural effusions and mild left basilar atelectasis. URINARY: Right Kidney: Indwelling nephrostomy. Non dilated. No stones. Right Ureter: No hydroureter. Left Kidney: Indwelling nephrostomy. Mild hilar process. Left Ureter: Mild hydroureter. Bladder: Normal wall thickness. No stones. ABDOMEN: Liver: No contour-deforming solid mass. Gallbladder: No radiopaque gallstones or wall thickening. Biliary ducts: No biliary dilation. Pancreas: No ductal dilation. Spleen: Size is within normal limits. Adrenal Glands: No adrenal nodules. Stomach and Bowel: Normal colonic caliber, without significant wall thickening. Peritoneum: No abnormal intraperitoneal fluid. No free air. Ventral Wall: No hernia. Abdominal Nodes: No enlarged retroperitoneal or mesenteric lymph nodes. Vessels: Aorta and inferior vena cava are normal in size. PELVIS: Pelvic Organs: There is a suggestion that the bladder may be significantly filled by large neoplasm. This is difficult to evaluate secondary to extensive artifact from total hip arthroplasties.. Pelvic Nodes: Unremarkable. Miscellaneous: No inguinal hernias are seen. 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 Question possible edema indicating injury to the right adductor muscles versus appearance secondary to artifact. IMPRESSION: 1. No acute bony abnormality in the pelvis. 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 2. Question possible right hip adductor muscle tear. This is not definite. Consider clinical diagnosis versus confirmation using ultrasound. 3. Suggestion that the bladder contains large volume neoplasm. This is difficult to evaluate secondary to extensive overlying metal artifact. 4. Bilateral nephrostomy tubes in place. Right kidney decompressed. Mild left hydronephrosis. This is similar to previous. Additional comment: If the extent of neoplasm in the bladder is not previously evaluated, consider nonemergent CT IVP with an existing bladder catheter clamped. Dictated by: Abdirahman Calixto M.D. on 09/01/2023 at 11:37 Approved by: Abdirahman Calixto M.D. on 09/01/2023 at 11:44 Extremity x-ray #1: Radiologist's Impression: [address] [address] XRay Report Signed Patient: Ramirez Foster MR#: [id number] : 1945 Acct:[id number] Age/Sex: 77 / M Date of Service: 09/01/23 Loc: ED Accession Number: [id number] Procedure: XR hip w pel if done RT 2V Ordering Provider: Denisha Abreu D.O. PROCEDURE: XR HIP W PEL IF DONE RT 2V INDICATIONS: fall hip pain TECHNIQUE: AP pelvis with lateral view(s) of the right hip(s). COMPARISON: None. FINDINGS: Bones: Bilateral hip arthroplasties. Left hip arthroplasty incompletely imaged. Right hip arthroplasty unremarkable with no evidence of hardware failure or loosening. No fractures or dislocations. Pelvic ring appears intact. No suspicious bony lesions. Soft tissues: The visualized bowel gas pattern is normal. No suspicious soft tissue calcifications. IMPRESSION: Expected appearance of right hip arthroplasty. No acute fracture or dislocation. Dictated by: Abdirahman Calixto M.D. on 09/01/2023 at 10:54 Approved by: Abdirahman Calixto M.D. on 09/01/2023 at 10:55 MDM Narrative Medical decision making narrative: 77-year-old ground level fall yesterday with complaint of right hip pain. Patient describes mechanical ground level fall. He is alert, appropriate. He did have a significant white count on the 1st and recent hospitalization so felt appropriate to obtain blood work. Labs show white count of 27 improved from the 1st but still elevated, hemoglobin 9, platelets of 402 also trending downwards. Coags are negative, creatinine today is 2.11 he was 1.32 on the 1st, BUN 46 with a sodium of 138 potassium 3 8 chloride of 108 and CO2 of 24, LFTs are otherwise negative. Protocol is 0.38. Hip x-ray does not show any acute fracture or dislocation. We will obtain CT KUB to evaluate patient's nephrostomy tubes he has elevation in his creatinine. His notes that the home health care nurse yesterday about the 2 might be kinked and that they had a prescription for amoxicillin started and he has had a dose last night and received a dose this morning. CT KUB: No acute bony changes possible right hip abductor muscle tear this would be consistent with patient's symptoms he has no bony but does have pain with movement. Bladder contains large volume neoplasm which is known, bilateral nephrostomy tubes in place right kidney decompressed mild left hydro. Patient does have cultures pending of the blood although last that were negative, UA was also sent. Patient was just started on amoxicillin yesterday. Spoke with orthopedic surgery, Dr. Nye/Abdoul: Recommend PT, weightbear as tolerated pain management. Discharge Plan Departure Patient Disposition: Home Clinical Impression: Injury of muscle of right hip, Fall Activity Restrictions/Additional Instructions: Please follow-up with your physician for recheck. Your creatinine is slightly elevated today from prior I would recommend having this rechecked in the next 20-48 hours. Your imaging does not show any obvious blockage or issues with the nephrostomy tubes. Please continue the oral antibiotic you were prescribed. Your imaging does show some edema of the right hip abductor muscle this could can indicate a tear or injury. I spoke with Orthopedic surgery they recommend weightbearing as tolerated, pain management and physical therapy if tolerated. You may take Tylenol up to a 1000 mg every 6 hours, you may take oxycodone 1-2 tablets every 6 hours as needed for pain. This medication can make you sleepy do not drive, perform hazardous activities or make any major decisions while taking it. This medication will make you constipated please take a stool softener once to twice daily until stools are soft and regular. Prescription printed. Please return for new or worsening symptoms, fevers, increasing weakness, new abdominal back flank pain, if you are not having any drainage from any of your nephrostomy or urethral catheter tubes, increasing pain weakness or other new or concerning changes. Prescriptions: New oxycodone 5 mg tablet 5 mg PO Q6H PRN (Reason: pain) Qty: 10 0RF No Action oxycodone 5 mg capsule 5 mg PO TID PRN (Reason: pain) Qty: 10 0RF Referrals: Miscellaneous,Doctor, MD [Primary Care Provider] - Stand Alone Forms: Patient Portal/API
[2023-09-01] MEDS: ONDANSETRON 4 MG/2 ML INJ IV (09:51)
[2023-09-01] MEDS: MORPHINE 4 MG/ML INJ IV (09:51)
[2023-09-01 10:03] LABS: Add Manual Diff / Slide Review NO; Basophils Absolute Auto 0 /uL (0-100); Basophils Percent Auto 0.2 % (0-2); Eosinophils Absolute Auto 0 /uL (0-450); Eosinophils Percent Auto 0.1 % (2-4); Hematocrit 27.9 % (41-53); Hemoglobin 9.1 g/dL (13.5-17.5); Lymphocytes Absolute Auto 1400 /uL (1100-4500); Lymphocytes Percent Auto 5.1 % (25-40); Mean Corpuscular HGB Conc 32.6 % (30-36); Mean Corpuscular Hemoglobin 28.2 PG (26-34); Mean Corpuscular Volume 86.4 fL (80-100); Monocytes Absolute Auto 1200 /uL (0-900); Monocytes Percent Auto 4.3 % (3-14); Neutrophils Absolute Auto 24500 /uL (1500-7000); Neutrophils Percent Auto 90.3 % (50-75); Platelet Count 402 X10^3/uL (150-400); Red Blood Cell Count 3.23 X10^6/uL (4.5-5.9); White Blood Cell Count 27.1 X10^3/uL (4.5-11.0)
[2023-09-01 10:11] LABS: Prothrombin Time 11.8 SECONDS (9.4-12.5)
[2023-09-01 10:13] LABS: PTT Partial Thromboplastin Tim 29 SECONDS (25.1-36.5)
[2023-09-01 10:16] LABS: Alanine Aminotransferase 13 IU/L (<50); Albumin 2.7 g/dL (3.5-5.0); Albumin Globulin Ratio 0.8 (1.0-2.8); Alkaline Phosphatase 112 U/L (38-126); Aspartate Aminotransferase 21 IU/L (17-59); BUN Creatinine Ratio 21.8 (6-22); Bilirubin Total 0.5 mg/dL (0.2-1.3); Blood Urea Nitrogen 46 mg/dL (9-20); Calcium 8.1 mg/dL (8.4-10.2); Carbon Dioxide 24 mmol/L (22-32); Chloride 108 mmol/L (98-107); Estimated Glomerular Filt Rate 32 mL/min (>60); Globulin 3.3 g/dL (1.7-4.1); Glucose 93 mg/dL (80-110); HEMOLYSIS < 15 (0-50); Lipase 19 U/L (23-300); Potassium 3.8 mmol/L (3.4-5.1); Sodium 138 mmol/L (137-145)
[2023-09-01 10:31] LABS: Procalcitonin 0.38 ng/mL (<0.5)
--- NOTE | 2023-09-01 11:05 | DI.CT.S_ITS ---
PROCEDURE: CT KIDNEY URETER BLADDER (KUB) INDICATIONS: fall, hip pain, creatinine elevated, nephrostomy b/l TECHNIQUE: Axial sections were acquired from the lung bases to the pubic symphysis. Coronal and sagittal reformats were performed. For radiation dose reduction, the following was used: automated exposure control, adjustment of mA and/or kV according to patient size. COMPARISON: [facility], CT, CT CHEST ABD PEL W CON, 08/22/2023, 17:30. FINDINGS: Image quality: Diagnostic. Lower Chest: Minimal bilateral pleural effusions and mild left basilar atelectasis. URINARY: Right Kidney: Indwelling nephrostomy. Non dilated. No stones. Right Ureter: No hydroureter. Left Kidney: Indwelling nephrostomy. Mild hilar process. Left Ureter: Mild hydroureter. Bladder: Normal wall thickness. No stones. ABDOMEN: Liver: No contour-deforming solid mass. Gallbladder: No radiopaque gallstones or wall thickening. Biliary ducts: No biliary dilation. Pancreas: No ductal dilation. Spleen: Size is within normal limits. Adrenal Glands: No adrenal nodules. Stomach and Bowel: Normal colonic caliber, without significant wall thickening. Peritoneum: No abnormal intraperitoneal fluid. No free air. Ventral Wall: No hernia. Abdominal Nodes: No enlarged retroperitoneal or mesenteric lymph nodes. Vessels: Aorta and inferior vena cava are normal in size. PELVIS: Pelvic Organs: There is a suggestion that the bladder may be significantly filled by large neoplasm. This is difficult to evaluate secondary to extensive artifact from total hip arthroplasties.. Pelvic Nodes: Unremarkable. Miscellaneous: No inguinal hernias are seen. 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 Question possible edema indicating injury to the right adductor muscles versus appearance secondary to artifact. IMPRESSION: 1. No acute bony abnormality in the pelvis. 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 2. Question possible right hip adductor muscle tear. This is not definite. Consider clinical diagnosis versus confirmation using ultrasound. 3. Suggestion that the bladder contains large volume neoplasm. This is difficult to evaluate secondary to extensive overlying metal artifact. 4. Bilateral nephrostomy tubes in place. Right kidney decompressed. Mild left hydronephrosis. This is similar to previous. Additional comment: If the extent of neoplasm in the bladder is not previously evaluated, consider nonemergent CT IVP with an existing bladder catheter clamped. Dictated by: Abdirahman Calixto M.D. on 09/01/2023 at 11:37 Approved by: Abdirahman Calixto M.D. on 09/01/2023 at 11:44
[2023-09-01 12:21] LABS: Appearance Urine UA TURBID; Bilirubin Urine UA NEGATIVE (NEGATIVE); Color Urine UA YELLOW; Glucose Urine UA NEGATIVE (Negative); Ketones Urine UA NEGATIVE (NEGATIVE); Leukocyte Esterase Urine UA 2+ (NEGATIVE); Nitrite Urine UA POSITIVE (Negative); Occult Blood Urine UA 3+ (Negative); Protein Urine UA 3+ (Negative); Urobilinogen Urine UA 0.2 E.U./dL (0.2)
[2023-09-01 13:12] LABS: Amorphous Sediment Urine 3+; Bacteria Urine Moderate (10-30); RBC Urine 5-10/HPF (0-5/HPF); Squamous Epithelial Cell Urine 1-5 /HPF (0-5/HPF); Urine Volume 10mL (spun); WBC Urine 5-10/HPF (0-5/HPF)
[2023-09-01 13:13] LABS: Culture Indicated Urine Specimen Cultured; Granular Casts Urine 1-5/LPF; Hyaline Casts Urine 5-10/LPF
[2023-09-01] MEDS: OXYCODONE/ACETAMINOPHEN 5/325 TABLET 2 TAB PO (13:50)
== END 2023-09-01 13:29 | disposition home or self-care (01) ==
PROVIDERS: Emergency Provider Emergency Medicine
DX: S76.001A Unspecified injury of muscle, fascia and tendon of right hip, initial encounter (principal); W18.30XA Fall on same level, unspecified, initial encounter
CPT/HCPCS: 73502; 74176; 80053; 81001; 83605; 83690; 84145; 85025; 85610; 85730; 87040; 87077; 87086; 96374; 96375; 99284; J2270; J2405

== ENCOUNTER 2023-10-18 20:37 | Emergency (ER) | payer MEDICARE, SELFPAY ==
[2023-10-18] VITALS (11 sets, daily range): BP systolic 140–178; BP diastolic 74–88; PULSE 69–85; RESP 18–80; TEMP 36.7; O2SAT 96–99; BMI 20.7
--- NOTE | 2023-10-18 20:50 | PC.NURSE ---
Patient has bilateral nephrostomy tubes. Right side assessed and is unremarkable, no redness, swelling or tendernesses, no unusual drainage from insertion site, draining urine into bag. Left side is red, tender and had purulent drainage from insertion site. Urine drainage from left site is cloudy. Dr. Mercer aware.
--- NOTE | 2023-10-18 21:02 | DI.RAD.S_ITS ---
PROCEDURE: XR CHEST 1V INDICATIONS: suspected sepsis TECHNIQUE: One view of the chest was acquired. COMPARISON: [facility], CR, XR CHEST 1V, 08/22/2023, 15:30. FINDINGS: Surgical changes and devices: None. Lungs and pleura: Left basilar scarring is seen. No focal infiltrate. Chronic emphysematous changes are seen. No pleural effusions or pneumothorax. Mediastinum: Mediastinal contours appear normal. Heart size is normal. Bones and chest wall: No suspicious bony lesions. Overlying soft tissues appear unremarkable. IMPRESSION: COPD. Left basilar scarring. No acute cardiopulmonary pathology. Dictated by: Leno Xavier M.D. on 10/18/2023 at 21:21 Approved by: Leno Xavier M.D. on 10/18/2023 at 21:22
[2023-10-18 21:13] LABS: Add Manual Diff / Slide Review NO; Basophils Absolute Auto 100 /uL (0-100); Basophils Percent Auto 0.8 % (0-2); Eosinophils Absolute Auto 200 /uL (0-450); Eosinophils Percent Auto 1.7 % (2-4); Hematocrit 31.1 % (41-53); Hemoglobin 10.2 g/dL (13.5-17.5); Lymphocytes Absolute Auto 2700 /uL (1100-4500); Lymphocytes Percent Auto 25.9 % (25-40); Mean Corpuscular HGB Conc 32.8 % (30-36); Mean Corpuscular Hemoglobin 29.5 PG (26-34); Monocytes Absolute Auto 800 /uL (0-900); Monocytes Percent Auto 7.6 % (3-14); Neutrophils Absolute Auto 6600 /uL (1500-7000); Platelet Count 354 X10^3/uL (150-400); Red Blood Cell Count 3.46 X10^6/uL (4.5-5.9); Red Cell Distribution Width 17.6 % (11.6-14.8); White Blood Cell Count 10.3 X10^3/uL (4.5-11.0)
[2023-10-18 21:14] LABS: INR 0.9 (0.9-1.3); Prothrombin Time 10.4 SECONDS (9.4-12.5)
[2023-10-18 21:17] LABS: PTT Partial Thromboplastin Tim 32 SECONDS (25.1-36.5)
--- NOTE | 2023-10-18 21:29 | ED.MALEGU ---
HPI - Male Genitourinary General Chief complaint: Urogenital-Male Stated complaint: states infection in his bags Time Seen by Provider: 10/18/23 20:52 Source: patient Mode of arrival: Ambulatory History of Present Illness HPI Narrative: 78-year-old male with history of bladder and prostate cancer, currently on chemotherapy presents by private vehicle from home out of concern that his nephrostomy tube sites are infected. states that patient gets his dressing changed weekly, there seemed to be some discoloration on the bandage today with some drainage and he was prompted to come to the emergency department for evaluation. Patient was due to have his nephrostomy to being changed on October 27 at [facility] with Interventional Radiology. He was followed by of urology at . Patient denies complaints, states that he has actually been improving over the last several weeks from his chemotherapy. He states that his oncologist seems to think that he was showing improvement with current therapy. Patient also reports that his ostomy output is always cloudy. He states that his urologist is aware of this but is not concerned. Related Data Previous Rx's Medication Instructions Recorded oxycodone 5 mg capsule 5 mg PO TID PRN pain #10 caps 06/26/23 oxycodone 5 mg tablet 5 mg PO Q6H PRN pain #10 tabs 09/01/23 Allergies Allergy/AdvReac Type Severity Reaction Status Date / Time codeine AdvReac Unknown Gastrointestinal Verified 09/01/23 09:12 Upset aspirin AdvReac Verified 10/18/23 20:48 Review of Systems Review of Systems Narrative: See HPI Patient History Social History Smoking Status: Current every day smoker Smoking Status: Current every day smoker tobacco type: cigarettes alcohol intake frequency: other Substance Use Type: does not use Exam Initial Vital Signs Initial Vital Signs: Vital Signs Pulse Rate 85 10/18/23 20:44 Pulse Oximetry 99 10/18/23 20:44 Const: Awake, alert, frail, cachectic, no acute distress Cardiac: regular rate, regular rhythm RESP: unlabored, clear bilaterally, no wheezing GI: Soft, nontender, nondistended, no rebound, no guarding MSK back: Bilateral nephrostomy tubes in place Skin: Warm, Dry, intact, no rashes Neuro: AO x3, CN II-XII grossly intact, moves all extremities Course Orders Ordered: Discontinued Medications Sodium Chloride (Normal Saline 0.9%) 1,000 mls @ 1,000 mls/hr IV BOLUS ONE Stop: 10/18/23 22:00 Last Infusion: 10/18/23 23:50 Dose: Infused Documented By: Admin: 10/18/23 22:10 Dose: 1,000 mls/hr Documented By: GERARDO Cefazolin Sodium/Dextrose (Ancef) 100 mls @ 200 mls/hr IV NOW ONE Stop: 10/18/23 21:32 Last Admin: 10/18/23 21:26 Dose: Not Given Documented By: GERARDO Ondansetron HCl (Ondansetron 4 Mg/2 Ml Inj) 4 mg IV NOW PRN PRN Reason: Nausea And Vomiting Ondansetron HCl (Ondansetron 4 Mg Odt) 4 mg SL NOW PRN PRN Reason: Nausea And Vomiting Vital Signs Vital signs: Vital Signs - 8 hr 10/18/23 23:00 10/18/23 23:00 10/18/23 23:30 Pulse Rate 70 72 Respiratory Rate Blood Pressure 154/77 H Pulse Oximetry 96 97 10/18/23 23:30 Pulse Rate Respiratory Rate 18 Blood Pressure 140/74 Pulse Oximetry MDM - Male Genitourinary Differential Diagnosis Differential diagnosis: Likely urinary tract infection, acute retention of urine and inguinal hernia Lab Data 10/18/23 20:50 10/18/23 20:50 Labs: Lab Results 10/18/23 Range/Units 20:50 WBC 10.3 (4.5-11.0) X10^3/uL RBC 3.46 L (4.5-5.9) X10^6/uL Hgb 10.2 L (13.5-17.5) g/dL Hct 31.1 L (41-53) % MCV 90.0 (80-100) fL MCH 29.5 (26-34) PG MCHC 32.8 (30-36) % RDW 17.6 H (11.6-14.8) % Plt Count 354 (150-400) X10^3/uL Neut % (Auto) 64.0 (50-75) % Lymph % (Auto) 25.9 (25-40) % [place] % (Auto) 7.6 (3-14) % Eos % (Auto) 1.7 L (2-4) % Baso % (Auto) 0.8 (0-2) % Neut # (Auto) 6600 (0489-8569) /uL Lymph # (Auto) 2700 (9084-0373) /uL [place] # (Auto) 800 (0-900) /uL Eos # (Auto) 200 (0-450) /uL Baso # (Auto) 100 (0-100) /uL PT 10.4 (9.4-12.5) SECONDS INR 0.9 (0.9-1.3) APTT 32 (25.1-36.5) SECONDS Sodium 138 (137-145) mmol/L Potassium 4.1 (3.4-5.1) mmol/L Chloride 106 (98-107) mmol/L Carbon Dioxide 31 (22-32) mmol/L BUN 29 H (9-20) mg/dL Creatinine 1.10 (0.66-1.25) mg/dL Estimated GFR > 60 (>60) mL/min BUN/Creatinine Ratio 26.4 H (6-22) Glucose 106 (80-110) mg/dL Lactate 0.9 (0.7-2.1) mmol/L Calcium 8.4 (8.4-10.2) mg/dL Total Bilirubin 0.4 (0.2-1.3) mg/dL AST 25 (17-59) IU/L ALT 15 (<50) IU/L Alkaline Phosphatase 137 H (38-126) U/L Total Protein 6.9 (6.3-8.2) g/dL Albumin 3.7 (3.5-5.0) g/dL Globulin 3.2 (1.7-4.1) g/dL Albumin/Globulin Ratio 1.2 (1.0-2.8) Lipase 60 (23-300) U/L Procalcitonin 0.060 (<0.5) ng/mL Imaging Data CT scan - abdomen/pelvis: Radiologist's Impression: PROCEDURE: CT ABDOMEN PELVIS W CON INDICATIONS: DRAINAGE AROUND L NEPHROSTOMY TUBE...INFECTION? TECHNIQUE: After the administration of intravenous contrast, axial sections acquired from the lung bases to the pubic symphysis. Coronal and sagittal reformats were performed. For radiation dose reduction, the following was used: automated exposure control, adjustment of mA and/or kV according to patient size. COMPARISON: [facility], CT, CT CHEST ABD PEL W CON, 08/22/2023, 17:30. [facility], CT, CT KIDNEY URETER BLADDER (KUB), 09/01/2023, 11:10. FINDINGS: Image quality: Diagnostic. Lower Chest: Left basilar dependent atelectasis is seen. Heart size is normal, no pericardial effusion. ABDOMEN: Liver: Previously described 1.7 cm indeterminate hypodensity in anterolateral periphery of right hepatic lobe is again seen now measures 2.2 x 1.6 cm in size series 2, image 25. Gallbladder: No radiopaque gallstones or wall thickening. Biliary ducts: No biliary dilation. Pancreas: No ductal dilation. Spleen: Size is within normal limits. Adrenal Glands: No adrenal nodules. Kidneys and Ureters: Bilateral percutaneous nephrostomy tubes are again seen. No hydronephrosis or hydroureter is seen. No gross solid appearing renal lesion. No perinephric fat stranding or fluid collection is noted. Stomach and Bowel: Large amount of fecal matter throughout the colon is seen extending to sigmoid colon and rectum. No gross abnormal bowel wall thickening or mesenteric fat stranding. No abscess collection. Peritoneum: No abnormal intraperitoneal fluid. No free air. Ventral Wall: No significant ventral hernia. Abdominal Nodes: No retroperitoneal or mesenteric adenopathy by size criteria. Vessels: Aorta and inferior vena cava are normal in size. PELVIS: Pelvic Organs: Limited evaluation of pelvis due to significant beam hardening artifacts from bilateral hip prosthesis and surgical clips in right lower quadrant. Bladder: There is suggestion of diffuse bladder wall thickening. No definite bladder wall mass is seen. Air is noted within bladder lumen and may represent iatrogenic air. Pelvic Nodes: No enlarged lymph nodes. Miscellaneous: No inguinal hernias are seen. Bones: No aggressive osseous abnormality. Prior bilateral total hip arthroplasty. IMPRESSION: 1. Limited evaluation of pelvis and urinary bladder due to large amount of beam hardening artifacts. Questionable bladder wall thickening concerning for cystitis. 2. Bilateral percutaneous nephrostomy tubes in place. No hydronephrosis or hydroureter. No perinephric fat stranding or fluid. 3. Large amount of fecal matter throughout the colon suggestive of moderate to severe constipation. No gross free air. No discrete drainable abscess collection. 4. Interval slight increase in size of indeterminate hypodense area involving right hepatic lobe as above. Dictated by: Leno Xavier M.D. on 10/18/2023 at 22:39 Approved by: Leno Xavier M.D. on 10/18/2023 at 22:45 [facility] Narrative Medical decision making narrative: Chronically unwell but not acutely toxic patient presenting for possible infection of his nephrostomy tubes. Patient does have cloudy material in his tube, however he states that it always has this appearance, his urologist is very aware of his output appearance, and he is not concerned about it. Due to have tubing replaced on October 27. Tube sites inspected, there was no active drainage or leakage from the site. There was no excessive warmth or fluctuance around the skin. Patient's vital signs are stable and he is denying any complaints at this time. Laboratory work is reviewed, WBC count 10.3, hemoglobin 10.2, platelets 354, sodium 138, potassium 4.1, creatinine 1.10, liver enzymes within normal limits. CT of the abdomen and pelvis shows no dislodging of the tubes, no evidence of fluid collection or stranding to suggest cellulitis. Patient and informed of lab and imaging findings. At this time there does not appear to be an infection present around the tube sites, both clinically and by lab and imaging findings. Recommended to keep the appointment on the as scheduled. ED return precautions discussed at bedside. Fresh dressings applied prior to patient's departure from the emergency department. Discharge Plan Departure Patient Disposition: Home Clinical Impression: Nephrostomy status Instructions: How to Care for a Surgical Wound Activity Restrictions/Additional Instructions: Change the bandages around the nephrostomy tube as previously scheduled. Please keep your appointment on October 27 for tube exchange. If you notice worsening drainage, spreading redness, decreased drainage of urine from the tube, fevers, or any other concerning findings please return to the emergency department for repeat evaluation. Prescriptions: No Action oxycodone 5 mg capsule 5 mg PO TID PRN (Reason: pain) Qty: 10 0RF oxycodone 5 mg tablet 5 mg PO Q6H PRN (Reason: pain) Qty: 10 0RF Referrals: Miscellaneous,Doctor, [Primary Care Provider] - Stand Alone Forms: Patient Portal/API
[2023-10-18 21:44] LABS: Alanine Aminotransferase 15 IU/L (<50); Albumin 3.7 g/dL (3.5-5.0); Albumin Globulin Ratio 1.2 (1.0-2.8); Alkaline Phosphatase 137 U/L (38-126); Aspartate Aminotransferase 25 IU/L (17-59); BUN Creatinine Ratio 26.4 (6-22); Bilirubin Total 0.4 mg/dL (0.2-1.3); Blood Urea Nitrogen 29 mg/dL (9-20); Calcium 8.4 mg/dL (8.4-10.2); Carbon Dioxide 31 mmol/L (22-32); Chloride 106 mmol/L (98-107); Estimated Glomerular Filt Rate > 60 mL/min (>60); Globulin 3.2 g/dL (1.7-4.1); Glucose 106 mg/dL (80-110); HEMOLYSIS < 15 (0-50); Lipase 60 U/L (23-300); Potassium 4.1 mmol/L (3.4-5.1); Sodium 138 mmol/L (137-145); Total Protein 6.9 g/dL (6.3-8.2)
[2023-10-18 21:45] LABS: Lactate (Lactic Acid) 0.9 mmol/L (0.7-2.1)
[2023-10-18] MEDS: SODIUM CHLORIDE 0.9% 1,000 ML 1000 ML IV (22:10)
--- NOTE | 2023-10-19 00:04 | PC.NURSE ---
Both nephrostomy dressings changed. Minimal purulent drainage noted again on the left nephrostomy insertion site.
== END 2023-10-19 00:14 | disposition home or self-care (01) ==
PROVIDERS: Emergency Provider Emergency Medicine
DX: Z43.6 Encounter for attention to other artificial openings of urinary tract (principal); Z71.1 Person with feared health complaint in whom no diagnosis is made; R03.0 Elevated blood-pressure reading, without diagnosis of hypertension
CPT/HCPCS: 36415; 71045; 74177; 80053; 83605; 83690; 84145; 85025; 85610; 85730; 87040; 93005; 99284; Q9967

== ENCOUNTER 2023-11-15 20:29 | Emergency (ER) | payer MEDICARE, SELFPAY ==
[2023-11-15 20:39] VITALS: BP 156/77; PULSE 85; RESP 16; TEMP 37.1; O2SAT 97; BMI 20.9
--- NOTE | 2023-11-15 21:52 | ED.GENADULT ---
HPI - General Adult General Chief complaint: Fever Stated complaint: infected nephrostomies, fever Time Seen by Provider: 11/15/23 20:31 Source: patient Mode of arrival: Ambulatory History of Present Illness HPI narrative: 78-year-old male with history of bladder and prostate cancer, currently on chemotherapy infusions presents by private vehicle from home for possible nephrostomy site infection. Patient seen 10/18/2023 for similar complaint. Temperature at home reported to be 100.2 F, given Tylenol prior to arrival. Patient states that he thinks that his tends to over-react and actually has no problem with his nephrostomy set-up. He says that he feels tired, but has been tired since his chemotherapy started and is no different today. He states that if he lays incorrectly the tube sites cause discomfort, but that has been constant since there insertion several months ago. Patient also states that his left nephrostomy bag seems to have stopped draining today. The tubing was changed approximately 2 weeks ago. Followed by Dr. Claire of urology at . Related Data Previous Rx's Medication Instructions Recorded oxycodone 5 mg capsule 5 mg PO TID PRN pain #10 caps 06/26/23 oxycodone 5 mg tablet 5 mg PO Q6H PRN pain #10 tabs 09/01/23 ciprofloxacin HCl 500 mg tablet 500 mg PO Q12H #20 tabs 11/16/23 Allergies Allergy/AdvReac Type Severity Reaction Status Date / Time codeine AdvReac Unknown Gastrointestinal Verified 09/01/23 09:12 Upset aspirin AdvReac Verified 10/18/23 20:48 Patient History Social History Smoking Status: Current every day smoker Smoking Status: Current every day smoker tobacco type: cigarettes alcohol intake frequency: other Substance Use Type: does not use Exam Initial Vital Signs Initial Vital Signs: Vital Signs Temperature 98.8 F 11/15/23 20:39 Pulse Rate 85 11/15/23 20:39 Respiratory Rate 16 11/15/23 20:39 Blood Pressure 156/77 H 11/15/23 20:39 Pulse Oximetry 97 11/15/23 20:39 Oxygen Delivery Method Room Air 11/15/23 20:39 Const: Awake, alert, appears chronically unwell, frail, no acute distress Cardiac: regular rate, regular rhythm RESP: unlabored, clear bilaterally, no wheezing GI: Soft, nontender, nondistended, no rebound, no guarding Back: Bilateral nephrostomy tubes with clean, dry dressings, no surrounding erythema, warmth, fluctuance, no drainage from around nephrostomy tubes Skin: Warm, Dry, intact, no rashes Neuro: AO x3, CN II-XII grossly intact, moves all extremities Course Orders Ordered: ED Orders 11/15/23 21:50 CBC Auto Diff [Complete Blood Count AUTO DIFF] Stat CMP [Comprehensive Metabolic Panel] Stat Procalcitonin Stat 11/15/23 23:11 Urine Culture Stat Urine Microscopic Stat Discontinued Medications Ceftriaxone Sodium 1,000 mg/ (Sodium Chloride) 100 mls @ 200 mls/hr IV NOW ONE Stop: 11/15/23 23:53 Last Infusion: 11/16/23 01:12 Dose: Infused Documented By: Admin: 11/16/23 00:38 Dose: 200 mls/hr Documented By: AKSHAT Vital Signs Vital signs: Vital Signs - 8 hr 11/15/23 20:39 11/15/23 22:08 11/15/23 22:30 Temperature 98.8 F Pulse Rate 85 74 Respiratory Rate 16 Blood Pressure 156/77 H 142/73 H Pulse Oximetry 97 97 Oxygen Delivery Method Room Air 11/15/23 22:30 11/15/23 23:00 11/15/23 23:00 Temperature Pulse Rate 71 71 Respiratory Rate Blood Pressure 157/79 H Pulse Oximetry 96 97 Oxygen Delivery Method 11/15/23 23:30 11/15/23 23:30 11/16/23 00:00 Temperature Pulse Rate 71 Respiratory Rate 18 Blood Pressure 145/78 H 137/76 Pulse Oximetry 96 Oxygen Delivery Method 11/16/23 00:00 Temperature Pulse Rate 72 Respiratory Rate 18 Blood Pressure Pulse Oximetry 97 Oxygen Delivery Method Medical Decision Making Lab Data 11/15/23 21:50 11/15/23 21:50 Labs: Lab Results 11/15/23 11/15/23 Range/Units 21:50 23:11 WBC 12.0 H (4.5-11.0) X10^3/uL RBC 3.56 L (4.5-5.9) X10^6/uL Hgb 10.6 L (13.5-17.5) g/dL Hct 32.4 L (41-53) % MCV 90.8 (80-100) fL MCH 29.8 (26-34) PG MCHC 32.8 (30-36) % RDW 14.8 (11.6-14.8) % Plt Count 242 (150-400) X10^3/uL Neut % (Auto) 77.6 H (50-75) % Lymph % (Auto) 14.2 L (25-40) % [place] % (Auto) 7.0 (3-14) % Eos % (Auto) 0.7 L (2-4) % Baso % (Auto) 0.5 (0-2) % Neut # (Auto) 9300 H (9453-5766) /uL Lymph # (Auto) 1700 (0732-0483) /uL [place] # (Auto) 800 (0-900) /uL Eos # (Auto) 100 (0-450) /uL Baso # (Auto) 100 (0-100) /uL Sodium 136 L (137-145) mmol/L Potassium 3.9 (3.4-5.1) mmol/L Chloride 109 H (98-107) mmol/L Carbon Dioxide 24 (22-32) mmol/L BUN 29 H (9-20) mg/dL Creatinine 1.35 H (0.66-1.25) mg/dL Estimated GFR 54 L (>60) mL/min BUN/Creatinine Ratio 21.5 (6-22) Glucose 106 (80-110) mg/dL Calcium 8.4 (8.4-10.2) mg/dL Total Bilirubin 0.5 (0.2-1.3) mg/dL AST 21 (17-59) IU/L ALT 15 (<50) IU/L Alkaline Phosphatase 113 (38-126) U/L Total Protein 6.7 (6.3-8.2) g/dL Albumin 3.5 (3.5-5.0) g/dL Globulin 3.2 (1.7-4.1) g/dL Albumin/Globulin Ratio 1.1 (1.0-2.8) Procalcitonin 0.118 (<0.5) ng/mL Urine RBC 1-5/hpf (0-5/HPF) Urine WBC 30-100/hpf H (0-5/HPF) Ur Squamous Epith Cells 0-1 /hpf (0-5/HPF) Triple Phos Crystals Occasional Urine Bacteria Many (>30) H (None) Ur Culture Indicated? Specimen cultured Vol Urine Centrifuged Low vol <10ml (spun) A Urine Dip Bedside Urine Glucose Negative Bedside Urine Bilirubin - Negative Bedside Urine Ketone - Negative Urine Specific Frannie 1.01 Bedside Urine Occult Blood + Bedside Urine pH 8.5 Bedside Urine Protein + 30 Bedside Urine Urobilinogen - Negative Bedside Urine Nitrite - Negative Bedside Urine Leukocytes +++ 500 Esterase Point of care testing: Urine Dip Bedside Urine Glucose Negative Bedside Urine Bilirubin - Negative Bedside Urine Ketone - Negative Urine Specific Frannie 1.01 Bedside Urine Occult Blood + Bedside Urine pH 8.5 Bedside Urine Protein + 30 Bedside Urine Urobilinogen - Negative Bedside Urine Nitrite - Negative Bedside Urine Leukocytes +++ 500 Esterase MDM Narrative Medical decision making narrative: Patient presenting for nephrostomy tube evaluation. reportedly concerned that the site may be infected. Dressing changed earlier today by home health care nurses. I personally evaluated this patient nearly 1 month ago for identical complaint. The nephrostomy insertion sites appear unchanged from prior, no signs of infection at this time. Patient is complaining of burning with urination, and a urine specimen was obtained. Patient's left nephrostomy tubing seems to be clogged with sediment. It was flushed by nursing staff with subsequent drainage of clear output from the nephrostomy tube. Laboratory work shows WBC count 12.0, hemoglobin 10.6, platelets 242, sodium 136, potassium 3.9, creatinine 1.35. Urinalysis with leukocyte esterase, numerous WBCs, numerous bacteria. Since patient was symptomatic a dose of Rocephin was ordered IV in the emergency department and patient will be discharged home on antibiotics. Patient states he was eager to go home. Counseled to follow up with Urology. Discharge Plan Departure Patient Disposition: Home Clinical Impression: Acute UTI, Complication of nephrostomy Instructions: DI for Urinary Tract Infection (UTI) Activity Restrictions/Additional Instructions: We were able to unclog your nephrostomy tubing today. You do seem to have a urinary tract infection in the urine coming from your bladder. Antibiotics have been sent to your pharmacy. Please follow up with your urologist. Prescriptions: New ciprofloxacin HCl 500 mg tablet 500 mg PO Q12H Qty: 20 0RF No Action oxycodone 5 mg capsule 5 mg PO TID PRN (Reason: pain) Qty: 10 0RF oxycodone 5 mg tablet 5 mg PO Q6H PRN (Reason: pain) Qty: 10 0RF Referrals: Diego Green MD [Primary Care Provider] - Stand Alone Forms: Patient Portal/API
[2023-11-15 22:03] LABS: Add Manual Diff / Slide Review NO; Basophils Absolute Auto 100 /uL (0-100); Basophils Percent Auto 0.5 % (0-2); Eosinophils Absolute Auto 100 /uL (0-450); Eosinophils Percent Auto 0.7 % (2-4); Hematocrit 32.4 % (41-53); Hemoglobin 10.6 g/dL (13.5-17.5); Lymphocytes Absolute Auto 1700 /uL (1100-4500); Lymphocytes Percent Auto 14.2 % (25-40); Mean Corpuscular HGB Conc 32.8 % (30-36); Mean Corpuscular Hemoglobin 29.8 PG (26-34); Mean Corpuscular Volume 90.8 fL (80-100); Monocytes Absolute Auto 800 /uL (0-900); Neutrophils Absolute Auto 9300 /uL (1500-7000); Neutrophils Percent Auto 77.6 % (50-75); Platelet Count 242 X10^3/uL (150-400); Red Blood Cell Count 3.56 X10^6/uL (4.5-5.9); Red Cell Distribution Width 14.8 % (11.6-14.8)
[2023-11-15 22:08] VITALS: PULSE 74; O2SAT 97
[2023-11-15 22:09] LABS: Alanine Aminotransferase 15 IU/L (<50); Albumin 3.5 g/dL (3.5-5.0); Albumin Globulin Ratio 1.1 (1.0-2.8); Alkaline Phosphatase 113 U/L (38-126); Aspartate Aminotransferase 21 IU/L (17-59); BUN Creatinine Ratio 21.5 (6-22); Bilirubin Total 0.5 mg/dL (0.2-1.3); Blood Urea Nitrogen 29 mg/dL (9-20); Calcium 8.4 mg/dL (8.4-10.2); Carbon Dioxide 24 mmol/L (22-32); Chloride 109 mmol/L (98-107); Estimated Glomerular Filt Rate 54 mL/min (>60); Globulin 3.2 g/dL (1.7-4.1); Glucose 106 mg/dL (80-110); HEMOLYSIS < 15 (0-50); Potassium 3.9 mmol/L (3.4-5.1); Sodium 136 mmol/L (137-145); Total Protein 6.7 g/dL (6.3-8.2)
[2023-11-15 22:26] LABS: Procalcitonin 0.118 ng/mL (<0.5)
[2023-11-15 22:30] VITALS: BP 142/73; PULSE 71; O2SAT 96
[2023-11-15 23:00] VITALS: BP 157/79; PULSE 71; O2SAT 97
[2023-11-15 23:30] VITALS: BP 145/78; PULSE 71; RESP 18; O2SAT 96
[2023-11-15 23:34] LABS: Bacteria Urine Many (>30); RBC Urine 1-5/HPF (0-5/HPF); Squamous Epithelial Cell Urine 0-1 /HPF (0-5/HPF); Triple Phosphate Crystal Urine Occasional; Urine Volume Low Vol <10mL (spun); WBC Urine 30-100/HPF (0-5/HPF)
[2023-11-15 23:35] LABS: Culture Indicated Urine Specimen Cultured
[2023-11-16] VITALS: BP 137/76; PULSE 72; RESP 18; O2SAT 97
--- NOTE | 2023-11-16 00:30 | PC.NURSE ---
nephrostomy tube into bag flushed with sterile water with sediment noted
--- NOTE | 2023-11-16 00:30 | PC.NURSE ---
nephrostom7
[2023-11-16] MEDS: cefTRIAXone 1,000 MG in SODIUM CHLORIDE 0.9% 100 ML 200 MG IV (00:38)
== END 2023-11-16 01:18 | disposition home or self-care (01) ==
PROVIDERS: Emergency Provider Emergency Medicine; PCP Internal Medicine
DX: N39.0 Urinary tract infection, site not specified (principal); N99.528 Other complication of incontinent external stoma of urinary tract
CPT/HCPCS: 36415; 80053; 81003; 81015; 84145; 85025; 87077; 87086; 87147; 87186; 96365; 99284; J0696

== ENCOUNTER 2024-01-11 10:52 | Emergency (ER) | payer MEDICARE, SELFPAY ==
[2024-01-11] VITALS (34 sets, daily range): BP systolic 100–157; BP diastolic 55–77; PULSE 82–124; RESP 14–23; TEMP 36.6–37.5; O2SAT 94–99; BMI 21.7
--- NOTE | 2024-01-11 11:47 | ED_ITS ---
HPI - Skin/Abscess/Foreign Bdy <Ruddy Donaldson DO - Last Filed: 01/21/24 07:06> General Chief complaint: Abdominal Pain Stated complaint: Hard spot on lower left side of stomach Time Seen by Provider: 01/11/24 11:36 Source: patient and family Mode of arrival: Wheelchair Limitations: no limitations History of Present Illness HPI narrative: Patient is a 78-year-old male with a past medical history of bladder and prostate cancer with bilateral kidney stents currently undergoing chemo every 6 weeks at [facility] in [place], last infusion was proximally 3 weeks ago not due for another 3 weeks comes into the ED from home for evaluation of abdominal pain and mass noted to the abdomen started at midnight. Started spontaneously. Describes it dull and aching pressure makes it worse, had normal bowel movement yesterday. Not complaining of any other symptoms such as headache visual disturbances chest pain shortness breath fever chills or any other GI/ symptoms as time Related Data Home Medications Medication Instructions Recorded Confirmed amlodipine 10 mg tablet 10 mg PO DAILY 01/12/24 01/12/24 hydroxyzine pamoate 25 mg capsule 25 mg PO Q6H PRN anxiety 01/12/24 01/12/24 paroxetine HCl 20 mg tablet 40 mg PO ONCE PM 01/12/24 01/12/24 Previous Rx's Medication Instructions Recorded oxycodone 5 mg capsule 5 mg PO TID PRN pain #10 caps 06/26/23 oxycodone 5 mg tablet 5 mg PO Q6H PRN pain #10 tabs 09/01/23 ciprofloxacin HCl 500 mg tablet 500 mg PO Q12H #20 tabs 11/16/23 Allergies Allergy/AdvReac Type Severity Reaction Status Date / Time codeine AdvReac Unknown Gastrointestinal Verified 01/11/24 11:04 Upset aspirin AdvReac Verified 01/11/24 11:04 Review of Systems <Ruddy Donaldson DO - Last Filed: 01/21/24 07:06> Review of Systems Narrative: HEENT: Denies headache, eye drainage, eye irritation, head trauma, sore throat, voice change Cardiovascular: Denies any chest pain, palpitations, shortness of breath, tachycardia Respiratory: Denies any shortness of breath, cough, wheeze, stridor GI/: Denies nausea, vomiting, diarrhea, bright red blood per rectum, melanotic stools, urinary frequency, urinary retention, dysuria, hematuria, positive for abdominal pain MSK: Denies any joint pain, muscle pains, swelling Skin: Denies any rashes, lesions, discoloration Neuro: Denies any headache, lightheadedness, dizziness, fainting, weakness Psych: Denies SI/HI Patient History <Ruddy Donaldson DO - Last Filed: 01/21/24 07:06> Social History Smoking Status: Current every day smoker Smoking Status: Current every day smoker tobacco type: cigarettes alcohol intake frequency: other Substance Use Type: does not use Exam <Ruddy Donaldson DO - Last Filed: 01/21/24 07:06> Narrative Exam Narrative: General: Cooperative, comfortable, well-developed, not in acute distress HEENT: Normocephalic, atraumatic, PERRLA, normal sclera, eyelids normal, Neck: Active full range of motion, atraumatic Chest: Normal to inspection, negative crepitus, no overlying erythema ecchymosis Respiratory: Normal respiratory effort, not in acute respiratory distress, clear to auscultation bilaterally negative cough, wheeze, tachypnea, rhonchi, rales Cardiology: Regular rate rhythm negative gallop, murmur, rubs GI/: Patient with incision noted to the anterior aspect of the abdomen due to history of appendectomy, tender reducible mass noted, no overlying erythema, patient does have bilateral percutaneous stents to kidneys MSK: Full range of active range of motion of all 4 extremities, atraumatic Skin: No rashes lesions noted Neuro: Alert awake oriented x3, moves all 4 extremities spontaneously, cranial nerves intact, able to answer all questions appropriately follows commands appropriately Psych: Cooperative, negative suicidal or homicidal ideations Initial Vital Signs Initial Vital Signs: Vital Signs Temperature 97.8 F 01/11/24 10:57 Pulse Rate 104 H 01/11/24 10:57 Respiratory Rate 16 01/11/24 10:57 Blood Pressure 105/55 L 01/11/24 10:57 Pulse Oximetry 99 01/11/24 10:57 Oxygen Delivery Method Room Air 01/11/24 10:57 <Morro Charles DO - Last Filed: 01/12/24 18:04> Initial Vital Signs Initial Vital Signs: Vital Signs Temperature 97.8 F 01/11/24 10:57 Pulse Rate 104 H 01/11/24 10:57 Respiratory Rate 16 01/11/24 10:57 Blood Pressure 105/55 L 01/11/24 10:57 Pulse Oximetry 99 01/11/24 10:57 Oxygen Delivery Method Room Air 01/11/24 10:57 <Carla Bailey DO - Last Filed: 01/13/24 07:29> Initial Vital Signs Initial Vital Signs: Vital Signs Temperature 97.8 F 01/11/24 10:57 Pulse Rate 104 H 01/11/24 10:57 Respiratory Rate 16 01/11/24 10:57 Blood Pressure 105/55 L 01/11/24 10:57 Pulse Oximetry 99 01/11/24 10:57 Oxygen Delivery Method Room Air 01/11/24 10:57 <Jean Claude Cristina MD - Last Filed: 01/20/24 07:25> Initial Vital Signs Initial Vital Signs: Vital Signs Temperature 97.8 F 01/11/24 10:57 Pulse Rate 104 H 01/11/24 10:57 Respiratory Rate 16 01/11/24 10:57 Blood Pressure 105/55 L 01/11/24 10:57 Pulse Oximetry 99 01/11/24 10:57 Oxygen Delivery Method Room Air 01/11/24 10:57 Course <Ruddy Donaldson DO - Last Filed: 01/21/24 07:06> Orders Ordered: Discontinued Medications Hydromorphone HCl (Hydromorphone 1 Mg Inj) 1 mg IV Q2HR PRN PRN Reason: Pain, Moderate (4-6) Last Admin: 01/12/24 16:34 Dose: 1 mg Documented By: REKHA Sodium Chloride (Normal Saline 0.9%) 1,000 mls @ 1,000 mls/hr IV BOLUS ONE Stop: 01/11/24 12:45 Last Infusion: 01/11/24 14:46 Dose: Infused Documented By: MARIA ESTHER Admin: 01/11/24 12:13 Dose: 1,000 mls/hr Documented By: MARIA ESTHER Vancomycin HCl/Dextrose (Vancomycin) 2,000 mg in 400 mls @ 200 mls/hr IV Q12H [facility] Last Infusion: 01/11/24 17:46 Dose: Infused Documented By: MARIA ESTHER Admin: 01/11/24 15:43 Dose: 200 mls/hr Documented By: MARIA ESTHER Piperacillin Sod/Tazobactam (Sod 4.5 gm/ Sodium Chloride) 100 mls @ 200 mls/hr IV NOW ONE Stop: 01/11/24 14:22 Last Infusion: 01/11/24 15:34 Dose: Infused Documented By: MARIA ESTHER Admin: 01/11/24 14:46 Dose: 200 mls/hr Documented By: MARIA ESTHER Acetaminophen (Ofirmev) 1,000 mg in 100 mls @ 400 mls/hr IV NOW ONE Stop: 01/11/24 21:52 Last Infusion: 01/11/24 22:05 Dose: Infused Documented By: MARIA ESTHER Admin: 01/11/24 21:43 Dose: 400 mls/hr Documented By: MARIA ESTHER Vancomycin HCl (Vancomycin) 1,000 mg in 200 mls @ 150 mls/hr IV Q24H [facility] Last Infusion: 01/12/24 17:12 Dose: Infused Documented By: MARIA ESTHER Admin: 01/12/24 15:58 Dose: 150 mls/hr Documented By: REKHA Piperacillin Sod/Tazobactam (Sod 3.375 gm/ Sodium Chloride) 100 mls @ 25 mls/hr IV Q8H [facility] Last Infusion: 01/12/24 14:06 Dose: 25 mls/hr Documented By: Infusion: 01/12/24 13:29 Dose: 0 mls/hr Documented By: Admin: 01/12/24 13:25 Dose: 25 mls/hr Documented By: Infusion: 01/12/24 10:49 Dose: Infused Documented By: [facility] Admin: 01/12/24 06:51 Dose: 25 mls/hr Documented By: Cefepime HCl 2 gm/ Sodium (Chloride) 100 mls @ 200 mls/hr IV NOW ONE Stop: 01/12/24 13:14 Last Infusion: 01/12/24 14:06 Dose: Infused Documented By: Admin: 01/12/24 13:28 Dose: 200 mls/hr Documented By: REKHA Sodium Chloride (Normal Saline 0.9%) 2,000.34 mls @ 666.78 mls/hr 30 ml/kg infuse over 3 hr (2000.34 ml) IV NOW ONE Stop: 01/12/24 16:42 Last Infusion: 01/12/24 17:11 Dose: Infused Documented By: MARIA ESTHER Admin: 01/12/24 14:07 Dose: 666.78 mls/hr Documented By: REKHA Lidocaine HCl (Lidocaine 2% (Glydo) 6 Ml Gel) 6 ml TOP NOW ONE Stop: 01/12/24 15:12 Last Admin: 01/12/24 15:16 Dose: 6 ml Documented By: REKHA Morphine Sulfate (Morphine 4 Mg/Ml Inj) 4 mg IV NOW ONE Stop: 01/11/24 11:47 Last Admin: 01/11/24 12:13 Dose: 4 mg Documented By: MARIA ESTHER Morphine Sulfate (Morphine 4 Mg/Ml Inj) 4 mg IV NOW ONE Stop: 01/11/24 18:32 Last Admin: 01/11/24 18:54 Dose: 4 mg Documented By: MARIA ESTHER Morphine Sulfate (Morphine 2 Mg/Ml Inj) 4 mg IV Q2HR PRN PRN Reason: Pain, Mild (1-3) Last Admin: 01/12/24 12:30 Dose: 4 mg Documented By: Admin: 01/12/24 08:26 Dose: 4 mg Documented By: Admin: 01/12/24 04:37 Dose: 4 mg Documented By: Ondansetron HCl (Ondansetron 4 Mg/2 Ml Inj) 4 mg IV NOW ONE Stop: 01/11/24 11:47 Last Admin: 01/11/24 12:13 Dose: 4 mg Documented By: MARIA ESTHER Vancomycin HCl (Vancomycin Per Pharmacy) 1 request MISC NOW PRN PRN Reason: for vanc dosing Vancomycin HCl (Vancomycin Trough) 1 request MISC 1530 [facility] Stop: 01/13/24 15:31 Vital Signs Vital signs: Vital Signs - 8 hr 01/12/24 10:30 01/12/24 11:00 01/12/24 11:30 Pulse Rate 100 H 101 H 100 H Respiratory Rate 23 23 23 Blood Pressure Pulse Oximetry 97 93 94 01/12/24 12:00 01/12/24 12:04 01/12/24 12:04 Pulse Rate 103 H 105 H Respiratory Rate 22 22 Blood Pressure 104/62 Pulse Oximetry 94 92 01/12/24 12:30 01/12/24 13:00 01/12/24 13:00 Pulse Rate 101 H 98 H Respiratory Rate 20 22 Blood Pressure 118/61 Pulse Oximetry 96 95 01/12/24 13:30 01/12/24 14:00 01/12/24 14:00 Pulse Rate 100 H 99 H Respiratory Rate 21 17 Blood Pressure 119/61 Pulse Oximetry 95 01/12/24 14:30 01/12/24 14:53 01/12/24 14:53 Pulse Rate 99 H 98 H Respiratory Rate 20 21 Blood Pressure 119/58 L Pulse Oximetry 94 95 01/12/24 15:00 01/12/24 15:00 01/12/24 15:30 Pulse Rate 98 H 102 H Respiratory Rate 23 23 Blood Pressure 131/62 Pulse Oximetry 96 94 01/12/24 15:30 01/12/24 16:00 01/12/24 16:00 Pulse Rate 103 H Respiratory Rate 19 Blood Pressure 138/65 126/72 Pulse Oximetry 93 <Morro Charles, DO - Last Filed: 01/12/24 18:04> Orders Ordered: Discontinued Medications Hydromorphone HCl (Hydromorphone 1 Mg Inj) 1 mg IV Q2HR PRN PRN Reason: Pain, Moderate (4-6) Last Admin: 01/12/24 16:34 Dose: 1 mg Documented By: REKHA Sodium Chloride (Normal Saline 0.9%) 1,000 mls @ 1,000 mls/hr IV BOLUS ONE Stop: 01/11/24 12:45 Last Infusion: 01/11/24 14:46 Dose: Infused Documented By: Admin: 01/11/24 12:13 Dose: 1,000 mls/hr Documented By: MARIA ESTHER Vancomycin HCl/Dextrose (Vancomycin) 2,000 mg in 400 mls @ 200 mls/hr IV Q12H [facility] Last Infusion: 01/11/24 17:46 Dose: Infused Documented By: Admin: 01/11/24 15:43 Dose: 200 mls/hr Documented By: BS Piperacillin Sod/Tazobactam (Sod 4.5 gm/ Sodium Chloride) 100 mls @ 200 mls/hr IV NOW ONE Stop: 01/11/24 14:22 Last Infusion: 01/11/24 15:34 Dose: Infused Documented By: Admin: 01/11/24 14:46 Dose: 200 mls/hr Documented By: MARIA ESTHER Acetaminophen (Ofirmev) 1,000 mg in 100 mls @ 400 mls/hr IV NOW ONE Stop: 01/11/24 21:52 Last Infusion: 01/11/24 22:05 Dose: Infused Documented By: MARIA ESTHER Admin: 01/11/24 21:43 Dose: 400 mls/hr Documented By: MARIA ESTHER Vancomycin HCl (Vancomycin) 1,000 mg in 200 mls @ 150 mls/hr IV Q24H [facility] Last Infusion: 01/12/24 17:12 Dose: Infused Documented By: MARIA ESTHER Admin: 01/12/24 15:58 Dose: 150 mls/hr Documented By: REKHA Piperacillin Sod/Tazobactam (Sod 3.375 gm/ Sodium Chloride) 100 mls @ 25 mls/hr IV Q8H [facility] Last Infusion: 01/12/24 14:06 Dose: 25 mls/hr Documented By: Infusion: 01/12/24 13:29 Dose: 0 mls/hr Documented By: Admin: 01/12/24 13:25 Dose: 25 mls/hr Documented By: Infusion: 01/12/24 10:49 Dose: Infused Documented By: Admin: 01/12/24 06:51 Dose: 25 mls/hr Documented By: Cefepime HCl 2 gm/ Sodium (Chloride) 100 mls @ 200 mls/hr IV NOW ONE Stop: 01/12/24 13:14 Last Infusion: 01/12/24 14:06 Dose: Infused Documented By: Admin: 01/12/24 13:28 Dose: 200 mls/hr Documented By: REKHA Sodium Chloride (Normal Saline 0.9%) 2,000.34 mls @ 666.78 mls/hr 30 ml/kg infuse over 3 hr (2000.34 ml) IV NOW ONE Stop: 01/12/24 16:42 Last Infusion: 01/12/24 17:11 Dose: Infused Documented By: MARIA ESTHER Admin: 01/12/24 14:07 Dose: 666.78 mls/hr Documented By: REKHA Lidocaine HCl (Lidocaine 2% (Glydo) 6 Ml Gel) 6 ml TOP NOW ONE Stop: 01/12/24 15:12 Last Admin: 01/12/24 15:16 Dose: 6 ml Documented By: REKHA Morphine Sulfate (Morphine 4 Mg/Ml Inj) 4 mg IV NOW ONE Stop: 01/11/24 11:47 Last Admin: 01/11/24 12:13 Dose: 4 mg Documented By: MARIA ESTHER Morphine Sulfate (Morphine 4 Mg/Ml Inj) 4 mg IV NOW ONE Stop: 01/11/24 18:32 Last Admin: 01/11/24 18:54 Dose: 4 mg Documented By: MARIA ESTHER Morphine Sulfate (Morphine 2 Mg/Ml Inj) 4 mg IV Q2HR PRN PRN Reason: Pain, Mild (1-3) Last Admin: 01/12/24 12:30 Dose: 4 mg Documented By: Admin: 01/12/24 08:26 Dose: 4 mg Documented By: Admin: 01/12/24 04:37 Dose: 4 mg Documented By: Ondansetron HCl (Ondansetron 4 Mg/2 Ml Inj) 4 mg IV NOW ONE Stop: 01/11/24 11:47 Last Admin: 01/11/24 12:13 Dose: 4 mg Documented By: MARIA ESTHER Vancomycin HCl (Vancomycin Per Pharmacy) 1 request MISC NOW PRN PRN Reason: for vanc dosing Vancomycin HCl (Vancomycin Trough) 1 request MISC 1530 [facility] Stop: 01/13/24 15:31 Vital Signs Vital signs: Vital Signs - 8 hr 01/12/24 10:30 01/12/24 11:00 01/12/24 11:30 Pulse Rate 100 H 101 H 100 H Respiratory Rate 23 23 23 Blood Pressure Pulse Oximetry 97 93 94 01/12/24 12:00 01/12/24 12:04 01/12/24 12:04 Pulse Rate 103 H 105 H Respiratory Rate 22 22 Blood Pressure 104/62 Pulse Oximetry 94 92 01/12/24 12:30 01/12/24 13:00 01/12/24 13:00 Pulse Rate 101 H 98 H Respiratory Rate 20 22 Blood Pressure 118/61 Pulse Oximetry 96 95 01/12/24 13:30 01/12/24 14:00 01/12/24 14:00 Pulse Rate 100 H 99 H Respiratory Rate 21 17 Blood Pressure 119/61 Pulse Oximetry 95 01/12/24 14:30 01/12/24 14:53 01/12/24 14:53 Pulse Rate 99 H 98 H Respiratory Rate 20 21 Blood Pressure 119/58 L Pulse Oximetry 94 95 01/12/24 15:00 01/12/24 15:00 01/12/24 15:30 Pulse Rate 98 H 102 H Respiratory Rate 23 23 Blood Pressure 131/62 Pulse Oximetry 96 94 01/12/24 15:30 01/12/24 16:00 01/12/24 16:00 Pulse Rate 103 H Respiratory Rate 19 Blood Pressure 138/65 126/72 Pulse Oximetry 93 <Carla Bailey DO - Last Filed: 01/13/24 07:29> Orders Ordered: Discontinued Medications Hydromorphone HCl (Hydromorphone 1 Mg Inj) 1 mg IV Q2HR PRN PRN Reason: Pain, Moderate (4-6) Last Admin: 01/12/24 16:34 Dose: 1 mg Documented By: REKHA Sodium Chloride (Normal Saline 0.9%) 1,000 mls @ 1,000 mls/hr IV BOLUS ONE Stop: 01/11/24 12:45 Last Infusion: 01/11/24 14:46 Dose: Infused Documented By: MARIA ESTHER Admin: 01/11/24 12:13 Dose: 1,000 mls/hr Documented By: MARIA ESTHER Vancomycin HCl/Dextrose (Vancomycin) 2,000 mg in 400 mls @ 200 mls/hr IV Q12H [facility] Last Infusion: 01/11/24 17:46 Dose: Infused Documented By: Admin: 01/11/24 15:43 Dose: 200 mls/hr Documented By: MARIA ESTHER Piperacillin Sod/Tazobactam (Sod 4.5 gm/ Sodium Chloride) 100 mls @ 200 mls/hr IV NOW ONE Stop: 01/11/24 14:22 Last Infusion: 01/11/24 15:34 Dose: Infused Documented By: Admin: 01/11/24 14:46 Dose: 200 mls/hr Documented By: MARIA ESTHER Acetaminophen (Ofirmev) 1,000 mg in 100 mls @ 400 mls/hr IV NOW ONE Stop: 01/11/24 21:52 Last Infusion: 01/11/24 22:05 Dose: Infused Documented By: Admin: 01/11/24 21:43 Dose: 400 mls/hr Documented By: MARIA ESTHER Vancomycin HCl (Vancomycin) 1,000 mg in 200 mls @ 150 mls/hr IV Q24H [facility] Last Infusion: 01/12/24 17:12 Dose: Infused Documented By: Admin: 01/12/24 15:58 Dose: 150 mls/hr Documented By: REKHA Piperacillin Sod/Tazobactam (Sod 3.375 gm/ Sodium Chloride) 100 mls @ 25 mls/hr IV Q8H [facility] Last Infusion: 01/12/24 14:06 Dose: 25 mls/hr Documented By: Infusion: 01/12/24 13:29 Dose: 0 mls/hr Documented By: Admin: 01/12/24 13:25 Dose: 25 mls/hr Documented By: Infusion: 01/12/24 10:49 Dose: Infused Documented By: Admin: 01/12/24 06:51 Dose: 25 mls/hr Documented By: Cefepime HCl 2 gm/ Sodium (Chloride) 100 mls @ 200 mls/hr IV NOW ONE Stop: 01/12/24 13:14 Last Infusion: 01/12/24 14:06 Dose: Infused Documented By: Admin: 01/12/24 13:28 Dose: 200 mls/hr Documented By: REKHA Sodium Chloride (Normal Saline 0.9%) 2,000.34 mls @ 666.78 mls/hr 30 ml/kg infuse over 3 hr (2000.34 ml) IV NOW ONE Stop: 01/12/24 16:42 Last Infusion: 01/12/24 17:11 Dose: Infused Documented By: MARIA ESTHER Admin: 01/12/24 14:07 Dose: 666.78 mls/hr Documented By: REKHA Lidocaine HCl (Lidocaine 2% (Glydo) 6 Ml Gel) 6 ml TOP NOW ONE Stop: 01/12/24 15:12 Last Admin: 01/12/24 15:16 Dose: 6 ml Documented By: REKHA Morphine Sulfate (Morphine 4 Mg/Ml Inj) 4 mg IV NOW ONE Stop: 01/11/24 11:47 Last Admin: 01/11/24 12:13 Dose: 4 mg Documented By: MARIA ESTHER Morphine Sulfate (Morphine 4 Mg/Ml Inj) 4 mg IV NOW ONE Stop: 01/11/24 18:32 Last Admin: 01/11/24 18:54 Dose: 4 mg Documented By: MARIA ESTHER Morphine Sulfate (Morphine 2 Mg/Ml Inj) 4 mg IV Q2HR PRN PRN Reason: Pain, Mild (1-3) Last Admin: 01/12/24 12:30 Dose: 4 mg Documented By: Admin: 01/12/24 08:26 Dose: 4 mg Documented By: Admin: 01/12/24 04:37 Dose: 4 mg Documented By: Ondansetron HCl (Ondansetron 4 Mg/2 Ml Inj) 4 mg IV NOW ONE Stop: 01/11/24 11:47 Last Admin: 01/11/24 12:13 Dose: 4 mg Documented By: MARIA ESTHER Vancomycin HCl (Vancomycin Per Pharmacy) 1 request MISC NOW PRN PRN Reason: for vanc dosing Vancomycin HCl (Vancomycin Trough) 1 request MISC 1530 [facility] Stop: 01/13/24 15:31 Vital Signs Vital signs: Vital Signs - 8 hr 01/12/24 10:30 01/12/24 11:00 01/12/24 11:30 Pulse Rate 100 H 101 H 100 H Respiratory Rate 23 23 23 Blood Pressure Pulse Oximetry 97 93 94 01/12/24 12:00 01/12/24 12:04 01/12/24 12:04 Pulse Rate 103 H 105 H Respiratory Rate 22 22 Blood Pressure 104/62 Pulse Oximetry 94 92 01/12/24 12:30 01/12/24 13:00 01/12/24 13:00 Pulse Rate 101 H 98 H Respiratory Rate 20 22 Blood Pressure 118/61 Pulse Oximetry 96 95 01/12/24 13:30 01/12/24 14:00 01/12/24 14:00 Pulse Rate 100 H 99 H Respiratory Rate 21 17 Blood Pressure 119/61 Pulse Oximetry 95 01/12/24 14:30 01/12/24 14:53 01/12/24 14:53 Pulse Rate 99 H 98 H Respiratory Rate 20 21 Blood Pressure 119/58 L Pulse Oximetry 94 95 01/12/24 15:00 01/12/24 15:00 01/12/24 15:30 Pulse Rate 98 H 102 H Respiratory Rate 23 23 Blood Pressure 131/62 Pulse Oximetry 96 94 01/12/24 15:30 01/12/24 16:00 01/12/24 16:00 Pulse Rate 103 H Respiratory Rate 19 Blood Pressure 138/65 126/72 Pulse Oximetry 93 <Jean Claude Cristina MD - Last Filed: 01/20/24 07:25> Orders Ordered: Discontinued Medications Hydromorphone HCl (Hydromorphone 1 Mg Inj) 1 mg IV Q2HR PRN PRN Reason: Pain, Moderate (4-6) Last Admin: 01/12/24 16:34 Dose: 1 mg Documented By: REKHA Sodium Chloride (Normal Saline 0.9%) 1,000 mls @ 1,000 mls/hr IV BOLUS ONE Stop: 01/11/24 12:45 Last Infusion: 01/11/24 14:46 Dose: Infused Documented By: MARIA ESTHER Admin: 01/11/24 12:13 Dose: 1,000 mls/hr Documented By: MARIA ESTHER Vancomycin HCl/Dextrose (Vancomycin) 2,000 mg in 400 mls @ 200 mls/hr IV Q12H [facility] Last Infusion: 01/11/24 17:46 Dose: Infused Documented By: MARIA ESTHER Admin: 01/11/24 15:43 Dose: 200 mls/hr Documented By: MARIA ESTHER Piperacillin Sod/Tazobactam (Sod 4.5 gm/ Sodium Chloride) 100 mls @ 200 mls/hr IV NOW ONE Stop: 01/11/24 14:22 Last Infusion: 01/11/24 15:34 Dose: Infused Documented By: MARIA ESTHER Admin: 01/11/24 14:46 Dose: 200 mls/hr Documented By: MARIA ESTHER Acetaminophen (Ofirmev) 1,000 mg in 100 mls @ 400 mls/hr IV NOW ONE Stop: 01/11/24 21:52 Last Infusion: 01/11/24 22:05 Dose: Infused Documented By: MARIA ESTHER Admin: 01/11/24 21:43 Dose: 400 mls/hr Documented By: MARIA ESTHER Vancomycin HCl (Vancomycin) 1,000 mg in 200 mls @ 150 mls/hr IV Q24H [facility] Last Infusion: 01/12/24 17:12 Dose: Infused Documented By: MARIA ESTHER Admin: 01/12/24 15:58 Dose: 150 mls/hr Documented By: REKHA Piperacillin Sod/Tazobactam (Sod 3.375 gm/ Sodium Chloride) 100 mls @ 25 mls/hr IV Q8H [facility] Last Infusion: 01/12/24 14:06 Dose: 25 mls/hr Documented By: Infusion: 01/12/24 13:29 Dose: 0 mls/hr Documented By: Admin: 01/12/24 13:25 Dose: 25 mls/hr Documented By: Infusion: 01/12/24 10:49 Dose: Infused Documented By: Admin: 01/12/24 06:51 Dose: 25 mls/hr Documented By: Cefepime HCl 2 gm/ Sodium (Chloride) 100 mls @ 200 mls/hr IV NOW ONE Stop: 01/12/24 13:14 Last Infusion: 01/12/24 14:06 Dose: Infused Documented By: Admin: 01/12/24 13:28 Dose: 200 mls/hr Documented By: REKHA Sodium Chloride (Normal Saline 0.9%) 2,000.34 mls @ 666.78 mls/hr 30 ml/kg infuse over 3 hr (2000.34 ml) IV NOW ONE Stop: 01/12/24 16:42 Last Infusion: 01/12/24 17:11 Dose: Infused Documented By: MARIA ESTHER Admin: 01/12/24 14:07 Dose: 666.78 mls/hr Documented By: REKHA Lidocaine HCl (Lidocaine 2% (Glydo) 6 Ml Gel) 6 ml TOP NOW ONE Stop: 01/12/24 15:12 Last Admin: 01/12/24 15:16 Dose: 6 ml Documented By: REKHA Morphine Sulfate (Morphine 4 Mg/Ml Inj) 4 mg IV NOW ONE Stop: 01/11/24 11:47 Last Admin: 01/11/24 12:13 Dose: 4 mg Documented By: MARIA ESTHER Morphine Sulfate (Morphine 4 Mg/Ml Inj) 4 mg IV NOW ONE Stop: 01/11/24 18:32 Last Admin: 01/11/24 18:54 Dose: 4 mg Documented By: MARIA ESTHER Morphine Sulfate (Morphine 2 Mg/Ml Inj) 4 mg IV Q2HR PRN PRN Reason: Pain, Mild (1-3) Last Admin: 01/12/24 12:30 Dose: 4 mg Documented By: Admin: 01/12/24 08:26 Dose: 4 mg Documented By: Admin: 01/12/24 04:37 Dose: 4 mg Documented By: Ondansetron HCl (Ondansetron 4 Mg/2 Ml Inj) 4 mg IV NOW ONE Stop: 01/11/24 11:47 Last Admin: 01/11/24 12:13 Dose: 4 mg Documented By: MARIA ESTHER Vancomycin HCl (Vancomycin Per Pharmacy) 1 request MISC NOW PRN PRN Reason: for vanc dosing Vancomycin HCl (Vancomycin Trough) 1 request MISC 1530 [facility] Stop: 01/13/24 15:31 Vital Signs Vital signs: Vital Signs - 8 hr 01/12/24 10:30 01/12/24 11:00 01/12/24 11:30 Pulse Rate 100 H 101 H 100 H Respiratory Rate 23 23 23 Blood Pressure Pulse Oximetry 97 93 94 01/12/24 12:00 01/12/24 12:04 01/12/24 12:04 Pulse Rate 103 H 105 H Respiratory Rate 22 22 Blood Pressure 104/62 Pulse Oximetry 94 92 01/12/24 12:30 01/12/24 13:00 01/12/24 13:00 Pulse Rate 101 H 98 H Respiratory Rate 20 22 Blood Pressure 118/61 Pulse Oximetry 96 95 01/12/24 13:30 01/12/24 14:00 01/12/24 14:00 Pulse Rate 100 H 99 H Respiratory Rate 21 17 Blood Pressure 119/61 Pulse Oximetry 95 01/12/24 14:30 01/12/24 14:53 01/12/24 14:53 Pulse Rate 99 H 98 H Respiratory Rate 20 21 Blood Pressure 119/58 L Pulse Oximetry 94 95 01/12/24 15:00 01/12/24 15:00 01/12/24 15:30 Pulse Rate 98 H 102 H Respiratory Rate 23 23 Blood Pressure 131/62 Pulse Oximetry 96 94 01/12/24 15:30 01/12/24 16:00 01/12/24 16:00 Pulse Rate 103 H Respiratory Rate 19 Blood Pressure 138/65 126/72 Pulse Oximetry 93 MDM - Skin/Abscess/Foreign Bdy <Ruddy Donaldson DO - Last Filed: 01/21/24 07:06> Differential Diagnosis Differential diagnosis: Likely other (Diverticulitis, metastatic disease, bladder rupture,) Condition is:: Well Controlled Medical Records Attestation: I reviewed the patient's medical records. Lab Data Attestation: I reviewed the patient's lab results. 01/12/24 06:16 01/12/24 06:16 Labs: Lab Results 01/11/24 01/12/24 01/12/24 Range/Units 12:00 06:16 15:34 WBC 23.1 H 25.2 H (4.5-11.0) X10^3/uL RBC 3.33 L 3.04 L (4.5-5.9) X10^6/uL Hgb 9.4 L 8.6 L (13.5-17.5) g/dL Hct 29.2 L 26.7 L (41-53) % MCV 87.7 87.8 (80-100) fL MCH 28.2 28.3 (26-34) PG MCHC 32.1 32.3 (30-36) % RDW 14.1 14.2 (11.6-14.8) % Plt Count 355 307 (150-400) X10^3/uL Neut % (Auto) 93.1 H Not Reportable (50-75) % Lymph % (Auto) 3.2 L Not Reportable (25-40) % [place] % (Auto) 3.6 Not Reportable (3-14) % Eos % (Auto) 0.0 L Not Reportable (2-4) % Baso % (Auto) 0.1 Not Reportable (0-2) % Neut # (Auto) 13920 H (2789-9171) /uL Lymph # (Auto) 700 L Not Reportable (7428-8616) /uL [place] # (Auto) 800 Not Reportable (0-900) /uL Eos # (Auto) 0 (0-450) /uL Baso # (Auto) 0 Not Reportable (0-100) /uL Total Counted 100 Seg Neutrophils % 86.0 H (38-70) % Band Neutrophils % 6.0 (3-7) % Lymphocytes % (Manual) 6.0 L (25-45) % Monocytes % (Manual) 2.0 (2-11) % Neutrophils # (Manual) 84325 H (2338-5583) /uL RBC Morphology Normal morphology Sodium 134 L 134 L (137-145) mmol/L Potassium 3.5 3.4 (3.4-5.1) mmol/L Chloride 102 105 (98-107) mmol/L Carbon Dioxide 23 18 L (22-32) mmol/L BUN 25 H 26 H (9-20) mg/dL Creatinine 1.67 H 1.54 H (0.66-1.25) mg/dL Estimated GFR 42 L 46 L (>60) mL/min BUN/Creatinine Ratio 15.0 16.9 (6-22) Glucose 100 92 (80-110) mg/dL Lactate 1.4 1.1 (0.7-2.1) mmol/L Calcium 8.5 8.1 L (8.4-10.2) mg/dL Magnesium 1.7 (1.6-2.3) mg/dL Total Bilirubin 0.6 (0.2-1.3) mg/dL AST 25 (17-59) IU/L ALT 20 (<50) IU/L Alkaline Phosphatase 106 (38-126) U/L Total Protein 6.3 (6.3-8.2) g/dL Albumin 2.9 L (3.5-5.0) g/dL Globulin 3.4 (1.7-4.1) g/dL Albumin/Globulin Ratio 0.9 L (1.0-2.8) Lipase < 10 L (23-300) U/L Urine Color Yellow Urine Appearance Turbid Urine pH 7.0 (4.5-8.0) Ur Specific [place] 1.025 (1.000-1.035) Urine Protein 3+ H (Negative) Urine Glucose (UA) Negative (Negative) g/dL Urine Ketones 1+ H (NEGATIVE) Urine Occult Blood 3+ H (Negative) Urine Nitrate Positive H (Negative) Urine Bilirubin Negative (NEGATIVE) Urine Urobilinogen 0.2 (0.2) E.U./dL Ur Leukocyte Esterase 3+ H (NEGATIVE) Urine RBC 10-30/hpf H (0-5/HPF) Urine WBC 10-30/hpf H (0-5/HPF) Ur Squamous Epith Cells 0-1 /hpf (0-5/HPF) Ur Renal Epithelial Cell 0-1/hpf (0-1/HPF) Amorphous Sediment 2+ Urine Bacteria Many (>30) H (None) Ur Culture Indicated? Specimen cultured Vol Urine Centrifuged 10ml (spun) MDM Narrative Medical decision making narrative: Patient is a 78-year-old male with past medical history of bladder and prostate cancer currently undergoing chemo infusion. Patient presented with abdominal pain to the suprapubic region started around noon. Patient does have baseline bilateral nephrostomy tubes states has had normal output. Patient states that he has been self cathing daily for the past 5 days last catheterization was yesterday with normal amount of drainage. Lab work and imaging showing bladder rupture, patient was started on broad-spectrum antibiotics given CT scan findings. Patient's physical exam does not show peritoneal signs. Discussed case with general surgery (Dr. Tarango) who states that there is a low likelihood of a fistula formation, states that this time would defer further intervention to Urology Discussed case with urologist, who states no additional interventions at this time agrees with current workup, however states that given patient with history of treatment at [place] would recommend transfer there. Patient was signed out to Dr. Charles at the end of my shift, patient pending transfer to [facility] for bladder rupture and urological intervention and treatment. <Morro Charles, DO - Last Filed: 01/12/24 18:04> Lab Data Labs: Lab Results 01/11/24 01/12/24 01/12/24 Range/Units 12:00 06:16 15:34 WBC 23.1 H 25.2 H (4.5-11.0) X10^3/uL RBC 3.33 L 3.04 L (4.5-5.9) X10^6/uL Hgb 9.4 L 8.6 L (13.5-17.5) g/dL Hct 29.2 L 26.7 L (41-53) % MCV 87.7 87.8 (80-100) fL MCH 28.2 28.3 (26-34) PG MCHC 32.1 32.3 (30-36) % RDW 14.1 14.2 (11.6-14.8) % Plt Count 355 307 (150-400) X10^3/uL Neut % (Auto) 93.1 H Not Reportable (50-75) % Lymph % (Auto) 3.2 L Not Reportable (25-40) % [place] % (Auto) 3.6 Not Reportable (3-14) % Eos % (Auto) 0.0 L Not Reportable (2-4) % Baso % (Auto) 0.1 Not Reportable (0-2) % Neut # (Auto) 51253 H (3294-9217) /uL Lymph # (Auto) 700 L Not Reportable (9037-7502) /uL [place] # (Auto) 800 Not Reportable (0-900) /uL Eos # (Auto) 0 (0-450) /uL Baso # (Auto) 0 Not Reportable (0-100) /uL Total Counted 100 Seg Neutrophils % 86.0 H (38-70) % Band Neutrophils % 6.0 (3-7) % Lymphocytes % (Manual) 6.0 L (25-45) % Monocytes % (Manual) 2.0 (2-11) % Neutrophils # (Manual) 62031 H (5824-3293) /uL RBC Morphology Normal morphology Sodium 134 L 134 L (137-145) mmol/L Potassium 3.5 3.4 (3.4-5.1) mmol/L Chloride 102 105 (98-107) mmol/L Carbon Dioxide 23 18 L (22-32) mmol/L BUN 25 H 26 H (9-20) mg/dL Creatinine 1.67 H 1.54 H (0.66-1.25) mg/dL Estimated GFR 42 L 46 L (>60) mL/min BUN/Creatinine Ratio 15.0 16.9 (6-22) Glucose 100 92 (80-110) mg/dL Lactate 1.4 1.1 (0.7-2.1) mmol/L Calcium 8.5 8.1 L (8.4-10.2) mg/dL Magnesium 1.7 (1.6-2.3) mg/dL Total Bilirubin 0.6 (0.2-1.3) mg/dL AST 25 (17-59) IU/L ALT 20 (<50) IU/L Alkaline Phosphatase 106 (38-126) U/L Total Protein 6.3 (6.3-8.2) g/dL Albumin 2.9 L (3.5-5.0) g/dL Globulin 3.4 (1.7-4.1) g/dL Albumin/Globulin Ratio 0.9 L (1.0-2.8) Lipase < 10 L (23-300) U/L Urine Color Yellow Urine Appearance Turbid Urine pH 7.0 (4.5-8.0) Ur Specific [place] 1.025 (1.000-1.035) Urine Protein 3+ H (Negative) Urine Glucose (UA) Negative (Negative) g/dL Urine Ketones 1+ H (NEGATIVE) Urine Occult Blood 3+ H (Negative) Urine Nitrate Positive H (Negative) Urine Bilirubin Negative (NEGATIVE) Urine Urobilinogen 0.2 (0.2) E.U./dL Ur Leukocyte Esterase 3+ H (NEGATIVE) Urine RBC 10-30/hpf H (0-5/HPF) Urine WBC 10-30/hpf H (0-5/HPF) Ur Squamous Epith Cells 0-1 /hpf (0-5/HPF) Ur Renal Epithelial Cell 0-1/hpf (0-1/HPF) Amorphous Sediment 2+ Urine Bacteria Many (>30) H (None) Ur Culture Indicated? Specimen cultured Vol Urine Centrifuged 10ml (spun) Imaging Data CT scan - abdomen/pelvis: Radiologist's Impression: PROCEDURE: CT ABDOMEN PELVIS W CON INDICATIONS: pain and mass noted to suprapubic region bladder and pros CA TECHNIQUE: After the administration of intravenous contrast, axial sections acquired from the lung bases to the pubic symphysis. Coronal and sagittal reformats were performed. For radiation dose reduction, the following was used: automated exposure control, adjustment of mA and/or kV according to patient size. COMPARISON: [facility], CT, CT CHEST ABD PEL W CON, 08/22/2023, 17:30. [facility], CT, CT KIDNEY URETER BLADDER (KUB), 09/01/2023, 11:10. [facility], CT, CT ABDOMEN PELVIS W CON, 10/18/2023, 21:52. FINDINGS: Image quality: Diagnostic. Lower Chest: No significant findings. ABDOMEN: Liver: Stable 2.2 centimeter hypoattenuating lesion in segment 8. Gallbladder: Gallbladder is distended, without contrast. Biliary ducts: No biliary dilation. Pancreas: No ductal dilation. Spleen: Size is within normal limits. New wedge-shaped hypoattenuating region in the spleen measuring 2.2 centimeter (series 2, image 19). Adrenal Glands: No adrenal nodules. Kidneys and Ureters: No hydronephrosis. No solid mass. No complex renal cystic lesion which requires follow up. Percutaneous nephrostomy tubes are present. Stomach and Bowel: Normal colonic caliber, without significant wall thickening. Large colonic stool load. Peritoneum: No abnormal intraperitoneal fluid. No free air. Ventral Wall: No significant ventral hernia. Abdominal Nodes: No retroperitoneal or mesenteric adenopathy by size criteria. Vessels: Aorta and inferior vena cava are normal in size. PELVIS: Severely suboptimal evaluation of the pelvis due to metallic artifact. Pelvic Organs: Prostate not visualized. Bladder: There is a rim enhancing collection in the anterior pelvis, containing fluid and gas, presumably representing the urinary bladder (series 2, image 67). Along the anterior margin of the bladder, there is a focal defect within the anterior wall (series 4, image 52), resulting in fluid and gas extending to the extraperitoneal space (series 2, image 68 and series 4, image 52). Pelvic Nodes: No enlarged lymph nodes. Miscellaneous: No inguinal hernias are seen. Bones: No aggressive osseous abnormality. New left-sided sacral insufficiency fracture compared with 09/01/2023. IMPRESSION: Severely suboptimal evaluation of the pelvis due to metallic artifact. That being said, there are findings highly suspicious for bladder rupture , with extraluminal gas and fluid anterior to the urinary bladder. Alternatively, findings could represent a large abscess decompressing the urinary bladder. This could be confirmed with fluoroscopic cystogram. There is gas and debris within the presumed urinary bladder, which may indicate infection, necrosis, or colovesicular fistula. Percutaneous nephrostomy tubes without hydronephrosis. New wedge-shaped region of hypoattenuation within the spleen measuring 2.2 centimeters, concerning for infarct. New left-sided sacral insufficiency fracture compared with 09/01/2023. The 1st and 2nd finding was discussed with the ER physician at time of dictation. [facility] Narrative Medical decision making narrative: Patient is a 78-year-old male with past medical history of bladder and prostate cancer currently undergoing chemo infusion. Patient presented with abdominal pain to the suprapubic region started around noon. Patient does have baseline bilateral nephrostomy tubes states has had normal output. Patient states that he has been self cathing daily for the past 5 days last catheterization was yesterday with normal amount of drainage. Lab work and imaging showing bladder rupture, patient was started on broad-spectrum antibiotics given CT scan findings. Patient's physical exam does not show peritoneal signs. Discussed case with general surgery (Dr. Tarango) who states that there is a low likelihood of a fistula formation, states that this time would defer further intervention to Urology Discussed case with urologist, who states no additional interventions at this time agrees with current workup, however states that given patient with history of treatment at [place] would recommend transfer there. Patient was signed out to Dr. Charles at the end of my shift, patient pending transfer to [facility] for bladder rupture and urological intervention and treatment. Dr Charles : Received turned over. Review patient's history and physical and workup up to this point. Patient has been afebrile. Antibiotics have been ordered. He was tolerating oral intake. Patient was received all of his treatment up to this point at [facility] so for continuity of care purposes him going back to that facility would be best. I did discuss the case with urology who stated that he did not have any emergent surgical pathology and the patient would be best admitted to the medicine service. [facility] did not have any bed availability at night but stated that they would have bed availability in the morning. They recommended that we wait until the morning to talk with the medicine service. Care turned over to day provider to follow-up disposition. <Carla Bailey, DO - Last Filed: 01/13/24 07:29> Lab Data Labs: Lab Results 01/11/24 01/12/24 01/12/24 Range/Units 12:00 06:16 15:34 WBC 23.1 H 25.2 H (4.5-11.0) X10^3/uL RBC 3.33 L 3.04 L (4.5-5.9) X10^6/uL Hgb 9.4 L 8.6 L (13.5-17.5) g/dL Hct 29.2 L 26.7 L (41-53) % MCV 87.7 87.8 (80-100) fL MCH 28.2 28.3 (26-34) PG MCHC 32.1 32.3 (30-36) % RDW 14.1 14.2 (11.6-14.8) % Plt Count 355 307 (150-400) X10^3/uL Neut % (Auto) 93.1 H Not Reportable (50-75) % Lymph % (Auto) 3.2 L Not Reportable (25-40) % [place] % (Auto) 3.6 Not Reportable (3-14) % Eos % (Auto) 0.0 L Not Reportable (2-4) % Baso % (Auto) 0.1 Not Reportable (0-2) % Neut # (Auto) 17047 H (9051-8814) /uL Lymph # (Auto) 700 L Not Reportable (4748-5838) /uL [place] # (Auto) 800 Not Reportable (0-900) /uL Eos # (Auto) 0 (0-450) /uL Baso # (Auto) 0 Not Reportable (0-100) /uL Total Counted 100 Seg Neutrophils % 86.0 H (38-70) % Band Neutrophils % 6.0 (3-7) % Lymphocytes % (Manual) 6.0 L (25-45) % Monocytes % (Manual) 2.0 (2-11) % Neutrophils # (Manual) 48057 H (9039-6042) /uL RBC Morphology Normal morphology Sodium 134 L 134 L (137-145) mmol/L Potassium 3.5 3.4 (3.4-5.1) mmol/L Chloride 102 105 (98-107) mmol/L Carbon Dioxide 23 18 L (22-32) mmol/L BUN 25 H 26 H (9-20) mg/dL Creatinine 1.67 H 1.54 H (0.66-1.25) mg/dL Estimated GFR 42 L 46 L (>60) mL/min BUN/Creatinine Ratio 15.0 16.9 (6-22) Glucose 100 92 (80-110) mg/dL Lactate 1.4 1.1 (0.7-2.1) mmol/L Calcium 8.5 8.1 L (8.4-10.2) mg/dL Magnesium 1.7 (1.6-2.3) mg/dL Total Bilirubin 0.6 (0.2-1.3) mg/dL AST 25 (17-59) IU/L ALT 20 (<50) IU/L Alkaline Phosphatase 106 (38-126) U/L Total Protein 6.3 (6.3-8.2) g/dL Albumin 2.9 L (3.5-5.0) g/dL Globulin 3.4 (1.7-4.1) g/dL Albumin/Globulin Ratio 0.9 L (1.0-2.8) Lipase < 10 L (23-300) U/L Urine Color Yellow Urine Appearance Turbid Urine pH 7.0 (4.5-8.0) Ur Specific [place] 1.025 (1.000-1.035) Urine Protein 3+ H (Negative) Urine Glucose (UA) Negative (Negative) g/dL Urine Ketones 1+ H (NEGATIVE) Urine Occult Blood 3+ H (Negative) Urine Nitrate Positive H (Negative) Urine Bilirubin Negative (NEGATIVE) Urine Urobilinogen 0.2 (0.2) E.U./dL Ur Leukocyte Esterase 3+ H (NEGATIVE) Urine RBC 10-30/hpf H (0-5/HPF) Urine WBC 10-30/hpf H (0-5/HPF) Ur Squamous Epith Cells 0-1 /hpf (0-5/HPF) Ur Renal Epithelial Cell 0-1/hpf (0-1/HPF) Amorphous Sediment 2+ Urine Bacteria Many (>30) H (None) Ur Culture Indicated? Specimen cultured Vol Urine Centrifuged 10ml (spun) MDM Narrative Medical decision making narrative: Patient is a 78-year-old male with past medical history of bladder and prostate cancer currently undergoing chemo infusion. Patient presented with abdominal pain to the suprapubic region started around noon. Patient does have baseline bilateral nephrostomy tubes states has had normal output. Patient states that he has been self cathing daily for the past 5 days last catheterization was yesterday with normal amount of drainage. Lab work and imaging showing bladder rupture, patient was started on broad-spectrum antibiotics given CT scan findings. Patient's physical exam does not show peritoneal signs. Discussed case with general surgery (Dr. Tarango) who states that there is a low likelihood of a fistula formation, states that this time would defer further intervention to Urology Discussed case with urologist, who states no additional interventions at this time agrees with current workup, however states that given patient with history of treatment at [place] would recommend transfer there. Patient was signed out to Dr. Charles at the end of my shift, patient pending transfer to [facility] for bladder rupture and urological intervention and treatment. Dr Charles : Received turned over. Review patient's history and physical and workup up to this point. Patient has been afebrile. Antibiotics have been ordered. He was tolerating oral intake. Patient was received all of his treatment up to this point at [facility] so for continuity of care purposes him going back to that facility would be best. I did discuss the case with urology who stated that he did not have any emergent surgical pathology and the patient would be best admitted to the medicine service. [facility] did not have any bed availability at night but stated that they would have bed availability in the morning. They recommended that we wait until the morning to talk with the medicine service. Care turned over to day provider to follow-up disposition. Dr. Bailey-patient 78-year-old male history of bladder and prostate cancer bilateral nephrostomy tubes current CT shows bladder rupture versus abscess. He does have leukocytosis which is actually rising from 23-25 this morning. He remained afebrile. Abdomen is quite tender there is a firm area of protrusion some umbilical. It does appear by bedside ultrasound possible fluid collection which actually correlates with what is found on CT awaiting to hear back from [facility] they suspect bed later today Pertinent labs: WBC 25.2 hemoglobin 8.6 hematocrit 26.7 platelets 307 sodium 134 potassium 3.4 BUN 26 creatinine 1.54 lactic acid 1.1 Radiographs: CT abdomen pelvis possible urinary bladder rupture January 12, 2024 at 2:00 p.m.Jonnie: ?sign out from Dr Bailey, patient is on waiting list for [facility] for continuity of care. He does get his nephrology care there. Antibiotics have been started. Pain is controlled. Vital signs are reassuring. IV fluids sepsis hydration has been initiated. January 12, 2024 at 2:[address] Cristina: I spoke with [facility] hospitalist Dr. Alcala, she will accept patient however she does need to talk to with urologist or I need to speak with them. They will contacting their urologist on-call. Hopefully in the next hour we will here from [facility] before accepting patient/transferring patient. Appropriate for telemetry bed. Not requiring ICU at this time. Laboratory studies and vital signs have been reassuring. 3:08 p.m.. I spoke with [facility], urology, dr maciel was contacted yesterday. Needs to be NPO now. Please have Mix catheter placed.. Patient to go to the emergency department for the charge nurse and room assignment already completed., dr sánchez is accepting. 3:20 p.m.. Spoke with patient. He does understand and agrees with transfer for continuity of care at [facility]. <Jean Claude Cristina MD - Last Filed: 01/20/24 07:25> Lab Data Labs: Lab Results 01/11/24 01/12/24 01/12/24 Range/Units 12:00 06:16 15:34 WBC 23.1 H 25.2 H (4.5-11.0) X10^3/uL RBC 3.33 L 3.04 L (4.5-5.9) X10^6/uL Hgb 9.4 L 8.6 L (13.5-17.5) g/dL Hct 29.2 L 26.7 L (41-53) % MCV 87.7 87.8 (80-100) fL MCH 28.2 28.3 (26-34) PG MCHC 32.1 32.3 (30-36) % RDW 14.1 14.2 (11.6-14.8) % Plt Count 355 307 (150-400) X10^3/uL Neut % (Auto) 93.1 H Not Reportable (50-75) % Lymph % (Auto) 3.2 L Not Reportable (25-40) % [place] % (Auto) 3.6 Not Reportable (3-14) % Eos % (Auto) 0.0 L Not Reportable (2-4) % Baso % (Auto) 0.1 Not Reportable (0-2) % Neut # (Auto) 62428 H (7321-3350) /uL Lymph # (Auto) 700 L Not Reportable (1212-8351) /uL [place] # (Auto) 800 Not Reportable (0-900) /uL Eos # (Auto) 0 (0-450) /uL Baso # (Auto) 0 Not Reportable (0-100) /uL Total Counted 100 Seg Neutrophils % 86.0 H (38-70) % Band Neutrophils % 6.0 (3-7) % Lymphocytes % (Manual) 6.0 L (25-45) % Monocytes % (Manual) 2.0 (2-11) % Neutrophils # (Manual) 63088 H (8156-1144) /uL RBC Morphology Normal morphology Sodium 134 L 134 L (137-145) mmol/L Potassium 3.5 3.4 (3.4-5.1) mmol/L Chloride 102 105 (98-107) mmol/L Carbon Dioxide 23 18 L (22-32) mmol/L BUN 25 H 26 H (9-20) mg/dL Creatinine 1.67 H 1.54 H (0.66-1.25) mg/dL Estimated GFR 42 L 46 L (>60) mL/min BUN/Creatinine Ratio 15.0 16.9 (6-22) Glucose 100 92 (80-110) mg/dL Lactate 1.4 1.1 (0.7-2.1) mmol/L Calcium 8.5 8.1 L (8.4-10.2) mg/dL Magnesium 1.7 (1.6-2.3) mg/dL Total Bilirubin 0.6 (0.2-1.3) mg/dL AST 25 (17-59) IU/L ALT 20 (<50) IU/L Alkaline Phosphatase 106 (38-126) U/L Total Protein 6.3 (6.3-8.2) g/dL Albumin 2.9 L (3.5-5.0) g/dL Globulin 3.4 (1.7-4.1) g/dL Albumin/Globulin Ratio 0.9 L (1.0-2.8) Lipase < 10 L (23-300) U/L Urine Color Yellow Urine Appearance Turbid Urine pH 7.0 (4.5-8.0) Ur Specific [place] 1.025 (1.000-1.035) Urine Protein 3+ H (Negative) Urine Glucose (UA) Negative (Negative) g/dL Urine Ketones 1+ H (NEGATIVE) Urine Occult Blood 3+ H (Negative) Urine Nitrate Positive H (Negative) Urine Bilirubin Negative (NEGATIVE) Urine Urobilinogen 0.2 (0.2) E.U./dL Ur Leukocyte Esterase 3+ H (NEGATIVE) Urine RBC 10-30/hpf H (0-5/HPF) Urine WBC 10-30/hpf H (0-5/HPF) Ur Squamous Epith Cells 0-1 /hpf (0-5/HPF) Ur Renal Epithelial Cell 0-1/hpf (0-1/HPF) Amorphous Sediment 2+ Urine Bacteria Many (>30) H (None) Ur Culture Indicated? Specimen cultured Vol Urine Centrifuged 10ml (spun) MDM Narrative Medical decision making narrative: Patient is a 78-year-old male with past medical history of bladder and prostate cancer currently undergoing chemo infusion. Patient presented with abdominal pain to the suprapubic region started around noon. Patient does have baseline bilateral nephrostomy tubes states has had normal output. Patient states that he has been self cathing daily for the past 5 days last catheterization was yesterday with normal amount of drainage. Lab work and imaging showing bladder rupture, patient was started on broad-spectrum antibiotics given CT scan findings. Patient's physical exam does not show peritoneal signs. Discussed case with general surgery (Dr. Tarango) who states that there is a low likelihood of a fistula formation, states that this time would defer further intervention to Urology Discussed case with urologist, who states no additional interventions at this time agrees with current workup, however states that given patient with history of treatment at [place] would recommend transfer there. Patient was signed out to Dr. Charles at the end of my shift, patient pending transfer to [facility] for bladder rupture and urological intervention and treatment. Dr Charles : Received turned over. Review patient's history and physical and workup up to this point. Patient has been afebrile. Antibiotics have been ordered. He was tolerating oral intake. Patient was received all of his treatment up to this point at [facility] so for continuity of care purposes him going back to that facility would be best. I did discuss the case with urology who stated that he did not have any emergent surgical pathology and the patient would be best admitted to the medicine service. [facility] did not have any bed availability at night but stated that they would have bed availability in the morning. They recommended that we wait until the morning to talk with the medicine service. Care turned over to day provider to follow-up disposition. Dr. Bailey-patient 78-year-old male history of bladder and prostate cancer bilateral nephrostomy tubes current CT shows bladder rupture versus abscess. He does have leukocytosis which is actually rising from 23-25 this morning. He remained afebrile. Abdomen is quite tender there is a firm area of protrusion some umbilical EU. It does appear by bedside ultrasound possible fluid collection which actually correlates with what is found on CT awaiting to hear back from [facility] they suspect bed later today Pertinent labs: WBC 25.2 hemoglobin 8.6 hematocrit 26.7 platelets 307 sodium 134 potassium 3.4 BUN 26 creatinine 1.54 lactic acid 1.1 Radiographs: CT abdomen pelvis possible urinary bladder rupture January 12, 2024 at 2:00 p.m.Jonnie: ?sign out from Dr Bailey, patient is on waiting list for [facility] for continuity of care. He does get his nephrology care there. Antibiotics have been started. Pain is controlled. Vital signs are reassuring. IV fluids sepsis hydration has been initiated. January 12, 2024 at 2:[address] Cristina: I spoke with [facility] hospitalist Dr. Alcaal, she will accept patient however she does need to talk to with urologist or I need to speak with them. They will contacting their urologist on-call. Hopefully in the next hour we will here from [facility] before accepting patient/transferring patient. Appropriate for telemetry bed. Not requiring ICU at this time. Laboratory studies and vital signs have been reassuring. 3:08 p.m.. I spoke with [facility], urology, dr maciel was contacted yesterday. Needs to be NPO now. Please have Mix catheter placed.. Patient to go to the emergency department for the charge nurse and room assignment already completed., dr sánchez is accepting. 3:20 p.m.. Spoke with patient. He does understand and agrees with transfer for continuity of care at [facility]. Critical Care Time <Carla Bailey DO - Last Filed: 01/13/24 07:29> Critical Care Time Critical Care Time: Yes Total Critical Care Time: 40 Attestation: The high probability of a clinically significant, sudden or life threatening deterioration of the [cardiovascular] system(s) required my full and direct attention, intervention and personal management. The aggregate critical care time was 40 minutes. This time is in addition to time spent performing reported procedures but includes the following: [x] Data Review and interpretation [x] Patient assessment and monitoring of vital signs [x] Documentation [x] Medication orders and management Discharge Plan Departure Patient Disposition: [facility] Clinical Impression: Bladder rupture Prescriptions: No Action oxycodone 5 mg capsule 5 mg PO TID PRN (Reason: pain) Qty: 10 0RF oxycodone 5 mg tablet 5 mg PO Q6H PRN (Reason: pain) Qty: 10 0RF ciprofloxacin HCl 500 mg tablet 500 mg PO Q12H Qty: 20 0RF hydroxyzine pamoate 25 mg capsule 25 mg PO Q6H PRN (Reason: anxiety) paroxetine HCl 20 mg tablet 40 mg PO ONCE PM amlodipine 10 mg tablet 10 mg PO DAILY Referrals: Diego Green MD [Primary Care Provider] -
[2024-01-11 12:09] LABS: Add Manual Diff / Slide Review NO; Basophils Absolute Auto 0 /uL (0-100); Basophils Percent Auto 0.1 % (0-2); Eosinophils Absolute Auto 0 /uL (0-450); Hematocrit 29.2 % (41-53); Hemoglobin 9.4 g/dL (13.5-17.5); Lymphocytes Absolute Auto 700 /uL (1100-4500); Lymphocytes Percent Auto 3.2 % (25-40); Mean Corpuscular HGB Conc 32.1 % (30-36); Mean Corpuscular Hemoglobin 28.2 PG (26-34); Mean Corpuscular Volume 87.7 fL (80-100); Monocytes Absolute Auto 800 /uL (0-900); Monocytes Percent Auto 3.6 % (3-14); Neutrophils Absolute Auto 21500 /uL (1500-7000); Neutrophils Percent Auto 93.1 % (50-75); Platelet Count 355 X10^3/uL (150-400); Red Blood Cell Count 3.33 X10^6/uL (4.5-5.9); Red Cell Distribution Width 14.1 % (11.6-14.8); White Blood Cell Count 23.1 X10^3/uL (4.5-11.0)
[2024-01-11] MEDS: SODIUM CHLORIDE 0.9% 1,000 ML 1000 ML IV (12:13)
[2024-01-11] MEDS: ONDANSETRON 4 MG/2 ML INJ IV (12:13)
[2024-01-11] MEDS: MORPHINE 4 MG/ML INJ IV ×2 (12:13→18:54)
[2024-01-11 12:23] LABS: Alanine Aminotransferase 20 IU/L (<50); Albumin 2.9 g/dL (3.5-5.0); Albumin Globulin Ratio 0.9 (1.0-2.8); Alkaline Phosphatase 106 U/L (38-126); Aspartate Aminotransferase 25 IU/L (17-59); Bilirubin Total 0.6 mg/dL (0.2-1.3); Blood Urea Nitrogen 25 mg/dL (9-20); Calcium 8.5 mg/dL (8.4-10.2); Carbon Dioxide 23 mmol/L (22-32); Chloride 102 mmol/L (98-107); Estimated Glomerular Filt Rate 42 mL/min (>60); Globulin 3.4 g/dL (1.7-4.1); Glucose 100 mg/dL (80-110); HEMOLYSIS < 15 (0-50); Magnesium 1.7 mg/dL (1.6-2.3); Potassium 3.5 mmol/L (3.4-5.1); Sodium 134 mmol/L (137-145); Total Protein 6.3 g/dL (6.3-8.2)
[2024-01-11 12:24] LABS: Lipase < 10 U/L (23-300)
[2024-01-11 12:36] LABS: Lactate (Lactic Acid) 1.4 mmol/L (0.7-2.1)
[2024-01-11] MEDS: PIPERACILLIN/TAZO 4.5 GM in SODIUM CHLORIDE 0.9% 100 ML IV (14:46)
[2024-01-11] MEDS: VANCOMYCIN 2,000 MG/400 ML PIGGYBACK 200 MG IV (15:43)
[2024-01-11] MEDS: ACETAMINOPHEN IV 1,000 MG/100 ML VIAL 400 MG IV (21:43)
[2024-01-12] VITALS (37 sets, daily range): BP systolic 104–146; BP diastolic 58–72; PULSE 87–105; RESP 17–24; TEMP 36.8; O2SAT 91–97
[2024-01-12] MEDS: MORPHINE 2 MG/ML INJ 4 MG IV ×3 (04:37→12:30)
[2024-01-12 06:41] LABS: Hematocrit 26.7 % (41-53); Hemoglobin 8.6 g/dL (13.5-17.5); Mean Corpuscular HGB Conc 32.3 % (30-36); Mean Corpuscular Hemoglobin 28.3 PG (26-34); Mean Corpuscular Volume 87.8 fL (80-100); Platelet Count 307 X10^3/uL (150-400); Red Blood Cell Count 3.04 X10^6/uL (4.5-5.9); Red Cell Distribution Width 14.2 % (11.6-14.8); White Blood Cell Count 25.2 X10^3/uL (4.5-11.0)
[2024-01-12 06:42] LABS: Add Manual Diff / Slide Review YES
[2024-01-12 06:45] LABS: BUN Creatinine Ratio 16.9 (6-22); Blood Urea Nitrogen 26 mg/dL (9-20); Calcium 8.1 mg/dL (8.4-10.2); Carbon Dioxide 18 mmol/L (22-32); Chloride 105 mmol/L (98-107); Estimated Glomerular Filt Rate 46 mL/min (>60); Glucose 92 mg/dL (80-110); HEMOLYSIS 32 (0-50); Lactate (Lactic Acid) 1.1 mmol/L (0.7-2.1); Potassium 3.4 mmol/L (3.4-5.1); Sodium 134 mmol/L (137-145)
[2024-01-12] MEDS: PIPERACILLIN/TAZO 3.375 GM in SODIUM CHLORIDE 0.9% 100 ML IV ×2 (06:51→13:25)
[2024-01-12 06:56] LABS: Neutrophils Absolute Manual 23184 /uL (3000-5900); RBC Morphology Normal Morphology; Total Cells Counted 100
--- NOTE | 2024-01-12 09:09 | PC.NURSE ---
Dr Bailey ok with patient taking home medications. Paroxetine HCL 20mg, Hydroxyzine Hanna 36mg, Amlodipine Besylate 10mg. Holding on Prednisone and Abiraterone at this time
--- NOTE | 2024-01-12 10:59 | PC.NURSE ---
Physician at the bedside with U/S machine.
--- NOTE | 2024-01-12 12:20 | PC.NURSE ---
Patient had linen change and had a saturated brief. He complains of stomach pain around his ABD. His left ureterostomy collection bag had his band around his leg and it was very tight. The band was loosened up around the leg and then urine began to flow out the tube into the bag. The right collection bag has a scant amount of urine in it.
[2024-01-12] MEDS: CEFEPIME 2 GM in SODIUM CHLORIDE 0.9% 100 ML IV (13:28)
[2024-01-12] MEDS: SODIUM CHLORIDE 0.9% 666.78 ML IV (14:07)
[2024-01-12] MEDS: LIDOCAINE 2% (GLYDO) 6 ML GEL TOP (15:16)
[2024-01-12 15:42] LABS: Appearance Urine UA TURBID; Bilirubin Urine UA NEGATIVE (NEGATIVE); Color Urine UA YELLOW; Glucose Urine UA NEGATIVE (Negative); Ketones Urine UA 1+ (NEGATIVE); Leukocyte Esterase Urine UA 3+ (NEGATIVE); Nitrite Urine UA POSITIVE (Negative); Occult Blood Urine UA 3+ (Negative); Protein Urine UA 3+ (Negative); Specific Gravity Urine UA 1.025 (1.000-1.035); Urobilinogen Urine UA 0.2 E.U./dL (0.2)
[2024-01-12] MEDS: VANCOMYCIN 1,000 MG/200 ML PIGGYBACK 150 MG IV (15:58)
[2024-01-12 16:03] LABS: Amorphous Sediment Urine 2+; Bacteria Urine Many (>30); Culture Indicated Urine Specimen Cultured; RBC Urine 10-30/HPF (0-5/HPF); Renal Epithelial Cells Urine 0-1/HPF (0-1/HPF); Squamous Epithelial Cell Urine 0-1 /HPF (0-5/HPF); Urine Volume 10mL (spun); WBC Urine 10-30/HPF (0-5/HPF)
[2024-01-12] MEDS: HYDROMORPHONE 1 MG INJ IV (16:34)
--- NOTE | 2024-01-12 16:39 | PC.NURSE ---
Left cath bag amount: 80CC Right cath bag amount: 100cc Urinary cath bacc
== END 2024-01-12 18:12 | disposition short-term general hospital (02) ==
PROVIDERS: Emergency Medicine; Student in an Organized Health Care Education/Training Program; Emergency Provider Emergency Medicine; PCP Internal Medicine
DX: N32.89 Other specified disorders of bladder (principal); C61 Malignant neoplasm of prostate; C67.9 Malignant neoplasm of bladder, unspecified; Z96.0 Presence of urogenital implants; R79.89 Other specified abnormal findings of blood chemistry
CPT/HCPCS: 36415; 74177; 80048; 80053; 81001; 83605; 83690; 83735; 85007; 85025; 87040; 87086; 87186; 96361; 96365; 96366; 96367; 96375; 96376; 99284; 99291; J0136; J0692; J1170; J2270; J2405; J2543; Q9967

== ENCOUNTER 2024-01-29 18:58 | Emergency (ER) | payer MEDICARE, SELFPAY ==
[2024-01-29 19:05] VITALS: BP 145/76; PULSE 97; RESP 18; TEMP 36.6; O2SAT 97; BMI 19.5
--- NOTE | 2024-01-29 19:39 | ED_ITS ---
HPI - Male Genitourinary General Chief complaint: Urogenital-Male Stated complaint: catheter leaking outisde of tube Time Seen by Provider: 01/29/24 19:03 Source: patient Mode of arrival: Wheelchair History of Present Illness HPI Narrative: 78yoM with PMH bladder cancer, prostate cancer, recent bladder rupture s/p repair at 01/13/24 presents for leaking around his sierra catheter site. Over the last several days patient has noticed worsening dependent leakage of urine from around his catheter. Patient reports frustration that he can not keep his brief dry and he is requesting that his catheter be changed. Related Data Home Medications Medication Instructions Recorded Confirmed amlodipine 10 mg tablet 10 mg PO DAILY 01/12/24 01/12/24 hydroxyzine pamoate 25 mg capsule 25 mg PO Q6H PRN anxiety 01/12/24 01/12/24 paroxetine HCl 20 mg tablet 40 mg PO ONCE PM 01/12/24 01/12/24 Previous Rx's Medication Instructions Recorded oxycodone 5 mg capsule 5 mg PO TID PRN pain #10 caps 06/26/23 oxycodone 5 mg tablet 5 mg PO Q6H PRN pain #10 tabs 09/01/23 ciprofloxacin HCl 500 mg tablet 500 mg PO Q12H #20 tabs 11/16/23 Allergies Allergy/AdvReac Type Severity Reaction Status Date / Time codeine AdvReac Unknown Gastrointestinal Verified 01/29/24 19:05 Upset aspirin AdvReac Gastrointestinal Verified 01/29/24 19:05 Upset Patient History Social History Smoking Status: Current every day smoker Smoking Status: Current every day smoker tobacco type: cigarettes alcohol intake frequency: other Substance Use Type: does not use Exam Initial Vital Signs Initial Vital Signs: Vital Signs Temperature 97.9 F 01/29/24 19:05 Pulse Rate 97 H 01/29/24 19:05 Respiratory Rate 18 01/29/24 19:05 Blood Pressure 145/76 H 01/29/24 19:05 Pulse Oximetry 97 01/29/24 19:05 Oxygen Delivery Method Room Air 01/29/24 19:05 Const: Awake, alert, debilitated, frail Cardiac: regular rate, regular rhythm RESP: unlabored, clear bilaterally, no wheezing GI: Soft, nontender, nondistended : [employer] present, Sierra catheter in place, no bleeding Skin: Warm, Dry, intact, no rashes Neuro: AO x3, CN II-XII grossly intact, moves all extremities Course Orders Ordered: Discontinued Medications Lidocaine HCl (Lidocaine 2% (Glydo) 6 Ml Gel) 6 ml TOP NOW ONE Stop: 01/29/24 19:40 Last Admin: 01/29/24 20:10 Dose: 6 ml Documented By: Vital Signs Vital signs: Vital Signs - 8 hr 01/29/24 19:05 Temperature 97.9 F Pulse Rate 97 H Respiratory Rate 18 Blood Pressure 145/76 H Pulse Oximetry 97 Oxygen Delivery Method Room Air MDM - Male Genitourinary MDM Narrative Medical decision making narrative: Leakage of urine around Sierra catheter site. The catheter was exchanged by nursing staff with resolution of urine leaking. Patient fitted with spare leg bag for home use. Discharge Plan Departure Patient Disposition: Home Clinical Impression: Sierra catheter problem Instructions: How to Care for Your Sierra Catheter -- Male Activity Restrictions/Additional Instructions: Follow up as scheduled with your urology team. Prescriptions: No Action oxycodone 5 mg capsule 5 mg PO TID PRN (Reason: pain) Qty: 10 0RF oxycodone 5 mg tablet 5 mg PO Q6H PRN (Reason: pain) Qty: 10 0RF ciprofloxacin HCl 500 mg tablet 500 mg PO Q12H Qty: 20 0RF hydroxyzine pamoate 25 mg capsule 25 mg PO Q6H PRN (Reason: anxiety) paroxetine HCl 20 mg tablet 40 mg PO ONCE PM amlodipine 10 mg tablet 10 mg PO DAILY Referrals: Diego Green MD [Primary Care Provider] - Stand Alone Forms: Patient Portal/API
[2024-01-29] MEDS: LIDOCAINE 2% (GLYDO) 6 ML GEL TOP (20:10)
== END 2024-01-29 21:01 | disposition home or self-care (01) ==
PROVIDERS: Emergency Provider Emergency Medicine; PCP Internal Medicine
DX: T83.9XXA Unspecified complication of genitourinary prosthetic device, implant and graft, initial encounter (principal); C61 Malignant neoplasm of prostate; C67.9 Malignant neoplasm of bladder, unspecified
CPT/HCPCS: 99283

== ENCOUNTER 2024-03-22 18:48 | Emergency (ER) | payer MEDICARE, SELFPAY ==
[2024-03-22] VITALS (7 sets, daily range): BP systolic 124–164; BP diastolic 70–85; PULSE 79–93; RESP 14–18; TEMP 37; O2SAT 95–99; BMI 21.4
--- NOTE | 2024-03-22 22:10 | ED_ITS ---
HPI - General Adult General Chief complaint: Urogenital-Male Stated complaint: stomach tube came out Time Seen by Provider: 03/22/24 22:10 Source: patient Mode of arrival: Wheelchair History of Present Illness HPI narrative: 78-year-old male with history of bladder cancer diagnosed 2 or 3 months ago, status post urologic procedures Dr. Claire at [facility], has right- sided percutaneous nephrostomy tube that is draining, has left-sided percutaneous nephrostomy tube that is draining, but dislodgement 20 hours ago of the suprapubic small blue curled tip catheter. He still has transurethral Mix catheter in place, has drainage of fluid. Related Data Home Medications Medication Instructions Recorded Confirmed amlodipine 10 mg tablet 10 mg PO DAILY 01/12/24 01/12/24 hydroxyzine pamoate 25 mg capsule 25 mg PO Q6H PRN anxiety 01/12/24 01/12/24 paroxetine HCl 20 mg tablet 40 mg PO ONCE PM 01/12/24 01/12/24 Previous Rx's Medication Instructions Recorded oxycodone 5 mg capsule 5 mg PO TID PRN pain #10 caps 06/26/23 oxycodone 5 mg tablet 5 mg PO Q6H PRN pain #10 tabs 09/01/23 ciprofloxacin HCl 500 mg tablet 500 mg PO Q12H #20 tabs 11/16/23 Allergies Allergy/AdvReac Type Severity Reaction Status Date / Time codeine AdvReac Unknown Gastrointestinal Verified 01/29/24 19:05 Upset aspirin AdvReac Gastrointestinal Verified 01/29/24 19:05 Upset Review of Systems Review of Systems Narrative: see HPI Patient History Social History Smoking Status: Current every day smoker Smoking Status: Current every day smoker tobacco type: cigarettes alcohol intake frequency: other Substance Use Type: does not use Exam Narrative Exam Narrative: GENERAL: Well-developed patient, in mild distress. HEAD: Atraumatic. Normocephalic. EYES: Pupils equal round and reactive. Extraocular motions intact. No scleral icterus. No injection or drainage. ENT: Nose without bleeding, purulent drainage. Throat without erythema, tonsillar hypertrophy or exudate. Airway patent. NECK: Trachea midline. Non tender CARDIOVASCULAR: Regular rate and rhythm without murmurs, gallops, or rubs. RESPIRATORY: Clear to auscultation. Breath sounds equal bilaterally. No wheezes, rales, or rhonchi. GASTROINTESTINAL: Abdomen soft, non-tender, nondistended. Suprapubic area catheter out, does not appear Mix like, small blue tube with curled and, appears intact. He has transurethral urinary catheter in place, draining fluid. EXTREMITIES: No edema or joint tenderness. BACK: Nontender without deformity or crepitance. No flank tenderness. Lower right catheter site intact, draining fluid. Lower left posterior renal catheter site intact, draining fluid. NEURO: AOx3. Motor functions grossly nonfocal SKIN: No rash or erythema of visible areas Initial Vital Signs Initial Vital Signs: Vital Signs Temperature 98.6 F 03/22/24 18:54 Pulse Rate 91 H 03/22/24 18:54 Respiratory Rate 18 03/22/24 18:54 Blood Pressure 142/76 H 03/22/24 18:54 Pulse Oximetry 98 03/22/24 18:54 Oxygen Delivery Method Room Air 03/22/24 18:54 Course Vital Signs Vital signs: Vital Signs - 8 hr 03/22/24 18:54 Temperature 98.6 F Pulse Rate 91 H Respiratory Rate 18 Blood Pressure 142/76 H Pulse Oximetry 98 Oxygen Delivery Method Room Air Medical Decision Making MDM Narrative Medical decision making narrative: 78-year-old male with history of bladder cancer, has right and left percutaneous nephrostomy drainage tubes in place that seemed to be draining, had dislodgement of his suprapubic area small blue curled tip catheter, that apparently dislodged 20 hours ago. He has transurethral Mix that is in place, still draining fluid. We discussed labs, CT imaging, declined. I do not feel comfortable trying to place this drainage like catheter. Urology on-call his at [facility], no other local urologists on-call. Patient decided he would like to leave now, does not want any interventions now, stated that he would call the office of his urologist Dr. Claire at [facility] tomorrow Tuesday during regular hours. Discharge Plan Departure Patient Disposition: Home Clinical Impression: Suprapubic catheter dysfunction, History of bladder cancer Activity Restrictions/Additional Instructions: History of bladder cancer diagnosis 2-3 months ago, with urology care Dr. Araiza at [facility] in [place], has right nephrostomy tube in place and draining, has left nephrostomy tube in place and draining, has trans urethral penile Mix urinary catheter in place that is been draining. Unfortunately 20 hours prior to arrival he had dislodgement loss of his suprapubic area small thin blue spiral and catheter. I do not feel comfortable placing this catheter. Urology on-call here is from [facility]. Offered contacting your urologist through [facility]. Sending lab studies and CT scan imaging. Those were declined. You decide that you wanted to go home now, and stated that you would call your urologist at [facility] in the morning tomorrow Tuesday, to arrange further follow up. Call your urologist office tomorrow morning during regular office hours to arrange close follow up. Return to this/nearest emergency department for any change worsening symptoms or any concerns prior Prescriptions: No Action oxycodone 5 mg capsule 5 mg PO TID PRN (Reason: pain) Qty: 10 0RF oxycodone 5 mg tablet 5 mg PO Q6H PRN (Reason: pain) Qty: 10 0RF ciprofloxacin HCl 500 mg tablet 500 mg PO Q12H Qty: 20 0RF hydroxyzine pamoate 25 mg capsule 25 mg PO Q6H PRN (Reason: anxiety) paroxetine HCl 20 mg tablet 40 mg PO ONCE PM amlodipine 10 mg tablet 10 mg PO DAILY Referrals: Diego Green MD [Primary Care Provider] - Stand Alone Forms: Patient Portal/API/Survey
== END 2024-03-22 23:06 | disposition home or self-care (01) ==
PROVIDERS: Emergency Provider Emergency Medicine; PCP Internal Medicine
DX: T83.010A Breakdown (mechanical) of cystostomy catheter, initial encounter (principal); C67.9 Malignant neoplasm of bladder, unspecified
CPT/HCPCS: 99281

== ENCOUNTER 2024-08-22 18:53 | Emergency (ER) | payer MEDICARE, SELFPAY ==
[2024-08-22] VITALS (11 sets, daily range): BP systolic 121–159; BP diastolic 67–95; PULSE 79–107; RESP 18; TEMP 36.9; O2SAT 94–99; BMI 22.1
--- NOTE | 2024-08-22 22:53 | ED_ITS ---
HPI - Male Genitourinary General Chief complaint: Urogenital-Male Stated complaint: not much output into bag Time Seen by Provider: 08/22/24 22:53 Source: patient Mode of arrival: Wheelchair History of Present Illness HPI Narrative: 78-year-old male with a past medical history of hypertension, bladder cancer with bilateral nephrostomies and suprapubic catheter sent in by his provider at [facility] for nephrostomy tube placement verification. According to the patient he had had decreased drainage from his left nephrostomy tube, he states he was seen at an outside hospital in which there was a blockage and the nephrostomy tube began to drain again, he states that he has since had left- sided flank pain, was told to come into the ED for verification of the tube placement. Related Data Home Medications Medication Instructions Recorded Confirmed amlodipine 10 mg tablet 10 mg PO DAILY 01/12/24 01/12/24 hydroxyzine pamoate 25 mg capsule 25 mg PO Q6H PRN anxiety 01/12/24 01/12/24 paroxetine HCl 20 mg tablet 40 mg PO ONCE PM 01/12/24 01/12/24 Previous Rx's Medication Instructions Recorded oxycodone 5 mg capsule 5 mg PO TID PRN pain #10 caps 06/26/23 oxycodone 5 mg tablet 5 mg PO Q6H PRN pain #10 tabs 09/01/23 ciprofloxacin HCl 500 mg tablet 500 mg PO Q12H #20 tabs 11/16/23 Allergies Allergy/AdvReac Type Severity Reaction Status Date / Time codeine AdvReac Unknown Gastrointestinal Verified 01/29/24 19:05 Upset aspirin AdvReac Gastrointestinal Verified 01/29/24 19:05 Upset Review of Systems Review of Systems Narrative: General: Denies fever, chills, weight loss HEENT: Denies headache, eye drainage, eye irritation, head trauma, sore throat, voice change Cardiovascular: Denies any chest pain, palpitations, tachycardia Respiratory: Denies any shortness of breath, cough, wheeze, stridor GI/: Positive Left-sided flank pain, nephrostomy tube issue, Denies any abdominal pain, nausea, vomiting, diarrhea, bright red blood per rectum, melanotic stools, urinary frequency, urinary retention, dysuria, hematuria MSK: Denies any joint pain, muscle pains, swelling Skin: Denies any rashes, lesions, discoloration Neuro: Denies any headache, lightheadedness, dizziness, fainting, weakness Psych: Denies SI/HI Patient History Social History Smoking Status: Current every day smoker Smoking Status: Current every day smoker tobacco type: cigarettes alcohol intake frequency: other Exam Narrative Exam Narrative: General: Cooperative, well-developed, not in acute distress HEENT: Normocephalic, atraumatic, PERRLA, normal sclera, eyelids normal Neck: Active full range of motion, atraumatic Chest: Normal to inspection, negative crepitus, no overlying erythema ecchymosis Respiratory: Normal respiratory effort, not in acute respiratory distress, clear to auscultation bilaterally negative cough, wheeze, tachypnea, rhonchi, rales Cardiology: Regular rate rhythm negative gallop, murmur, rubs GI/: No tenderness to palpation, soft, non rigid, normal to inspection, patient with bilateral nephrostomy tubes in place draining appropriate colored fluid, suprapubic catheter in place draining appropriate colored urine MSK: Full active range of motion in all 4 extremities, atraumatic, no tenderness to palpation of any bony prominences Skin: No rashes or lesions noted Neuro: Alert awake oriented x3, moves all 4 extremities spontaneously, cranial nerves intact, able to answer all questions appropriately follows commands appropriately Psych: Cooperative, negative suicidal or homicidal ideations Initial Vital Signs Initial Vital Signs: Vital Signs Temperature 98.4 F 08/22/24 19:03 Pulse Rate 107 H 08/22/24 19:03 Respiratory Rate 18 08/22/24 19:03 Blood Pressure 121/67 08/22/24 19:03 Pulse Oximetry 99 08/22/24 19:03 Oxygen Delivery Method Room Air 08/22/24 19:03 Course Orders Ordered: ED Orders 08/22/24 23:01 CT abdomen pelvis wo con Stat 08/22/24 23:25 CBC Auto Diff [Complete Blood Count AUTO DIFF] Stat CMP [Comprehensive Metabolic Panel] Stat Lipase Stat MAG [Magnesium] Stat 08/23/24 00:16 Urinalysis and Microscopic Stat Urine Culture Stat Vital Signs Vital signs: Vital Signs - 8 hr 08/22/24 19:03 08/22/24 20:02 08/22/24 20:03 Temperature 98.4 F Pulse Rate 107 H 98 H Respiratory Rate 18 Blood Pressure 121/67 145/81 H Pulse Oximetry 99 95 Oxygen Delivery Method Room Air 08/22/24 20:03 08/22/24 20:30 08/22/24 20:30 Temperature Pulse Rate 96 H 91 H Respiratory Rate Blood Pressure 132/76 Pulse Oximetry 94 95 Oxygen Delivery Method 08/22/24 21:00 08/22/24 21:00 08/22/24 21:30 Temperature Pulse Rate 88 Respiratory Rate Blood Pressure 127/78 131/76 Pulse Oximetry 96 Oxygen Delivery Method 08/22/24 21:30 08/22/24 22:00 08/22/24 22:00 Temperature Pulse Rate 86 82 Respiratory Rate Blood Pressure 133/72 Pulse Oximetry 96 96 Oxygen Delivery Method 08/22/24 22:30 08/22/24 22:30 08/22/24 23:00 Temperature Pulse Rate 79 Respiratory Rate Blood Pressure 131/72 149/95 H Pulse Oximetry 97 Oxygen Delivery Method 08/22/24 23:00 08/22/24 23:30 08/22/24 23:30 Temperature Pulse Rate 86 82 Respiratory Rate 18 Blood Pressure 133/78 Pulse Oximetry 95 97 Oxygen Delivery Method MDM - Male Genitourinary Differential Diagnosis Differential diagnosis: Likely urinary tract infection and other (Pyelonephritis, nephrostomy tube malposition) Lab Data 08/22/24 23:25 08/22/24 23:25 Labs: Lab Results 08/22/24 08/23/24 Range/Units 23:25 00:16 WBC 10.3 (4.5-11.0) X10^3/uL RBC 3.75 L (4.5-5.9) X10^6/uL Hgb 10.1 L (13.5-17.5) g/dL Hct 31.0 L (41-53) % MCV 82.7 (80-100) fL MCH 27.0 (26-34) PG MCHC 32.6 (30-36) % RDW 24.3 H (11.6-14.8) % Plt Count 263 (150-400) X10^3/uL Neut % (Auto) 66.0 (50-75) % Lymph % (Auto) 22.8 L (25-40) % Dawes % (Auto) 9.8 (3-14) % Eos % (Auto) 1.1 L (2-4) % Baso % (Auto) 0.3 (0-2) % Neut # (Auto) 6800 (8914-5482) /uL Lymph # (Auto) 2400 (1805-9468) /uL Dawes # (Auto) 1000 H (0-900) /uL Eos # (Auto) 100 (0-450) /uL Baso # (Auto) 0 (0-100) /uL RBC Morphology See below Anisocytosis 2+ H Sodium 137 (137-145) mmol/L Potassium 3.2 L (3.4-5.1) mmol/L Chloride 100 (98-107) mmol/L Carbon Dioxide 28 (22-32) mmol/L BUN 13 (9-20) mg/dL Creatinine 0.89 (0.66-1.25) mg/dL Estimated GFR > 60 (>60) mL/min BUN/Creatinine Ratio 14.6 (6-22) Glucose 98 (80-110) mg/dL Calcium 9.3 (8.4-10.2) mg/dL Magnesium 1.6 (1.6-2.3) mg/dL Total Bilirubin 0.8 (0.2-1.3) mg/dL AST 22 (17-59) IU/L ALT 14 (<50) IU/L Alkaline Phosphatase 77 (38-126) U/L Total Protein 6.5 (6.3-8.2) g/dL Albumin 3.5 (3.5-5.0) g/dL Globulin 3.0 (1.7-4.1) g/dL Albumin/Globulin Ratio 1.2 (1.0-2.8) Lipase 197 (23-300) U/L Urine Color Yellow Urine Appearance Sl cloudy Urine pH 6.5 (4.5-8.0) Ur Specific [place] <=1.005 (1.000-1.035) Urine Protein 1+ H (Negative) Urine Glucose (UA) Negative (Negative) g/dL Urine Ketones Negative (NEGATIVE) Urine Occult Blood 3+ H (Negative) Urine Nitrate Negative (Negative) Urine Bilirubin Negative (NEGATIVE) Urine Urobilinogen 0.2 (0.2) E.U./dL Ur Leukocyte Esterase 3+ H (NEGATIVE) Urine RBC 30-100/hpf H (0-5/HPF) Urine WBC >100/hpf H (0-5/HPF) Ur Squamous Epith Cells 0-1 /hpf (0-5/HPF) Calcium Oxalate Crystal Occasional H Urine Bacteria Many (>30) H (None) Hyaline Casts 0-1/lpf (None) Urine Yeast 10-30/hpf H (None) Ur Culture Indicated? Specimen cultured Vol Urine Centrifuged 10ml (spun) Imaging Data CT scan - abdomen/pelvis: Radiologist's Impression: [address] [address] [address] Scan Report Signed Patient: Ramirez Foster MR#: [id number] : 1945 Acct:[id number] Age/Sex: 78 / M Date of Service: 08/22/24 Loc: ED Accession Number: [id number] Procedure: CT abdomen pelvis wo con Ordering Provider: Ruddy Donaldson D.O. PROCEDURE: CT ABDOMEN PELVIS WO CON INDICATIONS: Verify nephrostomy tube placement TECHNIQUE: Axial sections were acquired from the lung bases to the pubic symphysis. Coronal and sagittal reformats were performed. For radiation dose reduction, the following was used: automated exposure control, adjustment of mA and/or kV according to patient size. COMPARISON: None. FINDINGS: Image quality: Diagnostic. Lower Chest: No significant findings. URINARY: Right Kidney: No hydronephrosis. Nephrostomy tube coil present in the mid pelvis. Right Ureter: No hydroureter. Left Kidney: Nephrostomy tube coiled in a lower pole calyx. Mild fullness of the upper pole calices. No significant hydronephrosis. Left Ureter: No hydroureter. Bladder: A suprapubic catheter is present. The bladder is not well seen. ABDOMEN: Liver: No contour-deforming solid mass. Hypodense lesion with punctate calcification laterally in segment eight. No significant change. Gallbladder: Distended. No wall thickening or calcification. Biliary ducts: No biliary dilation. Pancreas: No ductal dilation. Spleen: Size is within normal limits. Adrenal Glands: No adrenal nodules. Stomach and Bowel: Stomach and small bowel loops are normal caliber. Increased quantity of solid stool present. Peritoneum: No abnormal intraperitoneal fluid. No free air. Ventral Wall: No hernia. Abdominal Nodes: No enlarged retroperitoneal or mesenteric lymph nodes. Vessels: Abdominal aorta is normal caliber with mild calcification. IVC is flattened. Portal vein is normal caliber. PELVIS: Pelvic Organs: Not well seen due to bilateral hip arthroplasty beam hardening artifact. Pelvic Nodes: Unremarkable. Miscellaneous: No inguinal hernias are seen. Bones: Chronic right pelvic fractures. Bilateral hip arthroplasties. Multilevel degenerative disc changes throughout the spine. IMPRESSION: Bilateral nephrostomy tubes in place. No significant hydronephrosis or perinephric inflammation. Suprapubic catheter in place. No CT evidence of obstructive uropathy. Flattened IVC indicating hypovolemia. MDM Narrative Medical decision making narrative: 78-year-old male with a past medical history of hypertension bladder cancer status post bilateral nephrostomy tube and suprapubic catheter presents for left-sided flank pain as well as nephrostomy tube placement verification. He has had decreased nephrostomy tube drainage over the past 3 days states that he was seen by his home nurse clear the blockage and has normal drainage now but was told to come into the ED for verification of nephrostomy tube placement. He denies any other symptoms such as headache visual disturbances chest pain shortness breath fever chills nausea vomiting or any other GI/ symptoms time. On exam patient with bilateral nephrostomy tubes in place draining appropriate colored urine, patient with suprapubic catheter draining appropriate color of urine. Lab work without any leukocytosis, creatinine normal at 0.89 with BUN 14.6 and GFR greater than 60, did send urinalysis does show positive leuk esterase with WBC however the urinalysis was obtained without switching the Mix catheter therefore we will hold off on antibiotics at this time, did instruct the patient to follow up immediately with his urology team as well as his primary care doctor to decide if he should be started on antibiotics. CT scan also not showing any perinephric stranding therefore low suspicion for need for antibiotics at this time. Patient was instructed follow up with his specialists in outpatient setting he verbalized understanding of this and agrees to being discharged home with outpatient follow up Discharge Plan Departure Patient Disposition: Home Clinical Impression: Flank pain, Attention to nephrostomy Activity Restrictions/Additional Instructions: Please follow up with your urologist and your primary care doctor Please read the discharge instructions sheet carefully and bring all papers to all doctor follow-up visits, as it may contain information that your doctor may want to see. Disease processes change and evolve, if your symptoms worsen or if you develop any new symptoms that are concerning to you please return for evaluation. Your evaluation today does not show any evidence of any life- threatening/serious illnesses requiring admission to the hospital or surgery. Please follow-up with your doctor for re-evaluation in approximately 1 day. Seek immediate medical attention for any worrisome symptoms. *If you do not have a primary care provider please contact the [facility] Resource line at [phone]. They will ask some questions about your medical history and help get you set up with a doctor in the community. Prescriptions: No Action oxycodone 5 mg capsule 5 mg PO TID PRN (Reason: pain) Qty: 10 0RF oxycodone 5 mg tablet 5 mg PO Q6H PRN (Reason: pain) Qty: 10 0RF ciprofloxacin HCl 500 mg tablet 500 mg PO Q12H Qty: 20 0RF hydroxyzine pamoate 25 mg capsule 25 mg PO Q6H PRN (Reason: anxiety) paroxetine HCl 20 mg tablet 40 mg PO ONCE PM amlodipine 10 mg tablet 10 mg PO DAILY Referrals: Diego Green MD [Primary Care Provider] - Stand Alone Forms: Patient Portal/API/Survey
--- NOTE | 2024-08-22 23:01 | DI.CT.S_ITS ---
PROCEDURE: CT ABDOMEN PELVIS WO CON INDICATIONS: Verify nephrostomy tube placement TECHNIQUE: Axial sections were acquired from the lung bases to the pubic symphysis. Coronal and sagittal reformats were performed. For radiation dose reduction, the following was used: automated exposure control, adjustment of mA and/or kV according to patient size. COMPARISON: None. FINDINGS: Image quality: Diagnostic. Lower Chest: No significant findings. URINARY: Right Kidney: No hydronephrosis. Nephrostomy tube coil present in the mid pelvis. Right Ureter: No hydroureter. Left Kidney: Nephrostomy tube coiled in a lower pole calyx. Mild fullness of the upper pole calices. No significant hydronephrosis. Left Ureter: No hydroureter. Bladder: A suprapubic catheter is present. The bladder is not well seen. ABDOMEN: Liver: No contour-deforming solid mass. Hypodense lesion with punctate calcification laterally in segment eight. No significant change. Gallbladder: Distended. No wall thickening or calcification. Biliary ducts: No biliary dilation. Pancreas: No ductal dilation. Spleen: Size is within normal limits. Adrenal Glands: No adrenal nodules. Stomach and Bowel: Stomach and small bowel loops are normal caliber. Increased quantity of solid stool present. Peritoneum: No abnormal intraperitoneal fluid. No free air. Ventral Wall: No hernia. Abdominal Nodes: No enlarged retroperitoneal or mesenteric lymph nodes. Vessels: Abdominal aorta is normal caliber with mild calcification. IVC is flattened. Portal vein is normal caliber. PELVIS: Pelvic Organs: Not well seen due to bilateral hip arthroplasty beam hardening artifact. Pelvic Nodes: Unremarkable. Miscellaneous: No inguinal hernias are seen. Bones: Chronic right pelvic fractures. Bilateral hip arthroplasties. Multilevel degenerative disc changes throughout the spine. IMPRESSION: Bilateral nephrostomy tubes in place. No significant hydronephrosis or perinephric inflammation. Suprapubic catheter in place. No CT evidence of obstructive uropathy. Flattened IVC indicating hypovolemia. Dictated by: Helen Carballo M.D. on 08/23/2024 at 0:56 Approved by: Helen Carballo M.D. on 08/23/2024 at 1:04
[2024-08-22 23:35] LABS: Add Manual Diff / Slide Review NO; Basophils Absolute Auto 0 /uL (0-100); Basophils Percent Auto 0.3 % (0-2); Eosinophils Absolute Auto 100 /uL (0-450); Eosinophils Percent Auto 1.1 % (2-4); Hemoglobin 10.1 g/dL (13.5-17.5); Lymphocytes Absolute Auto 2400 /uL (1100-4500); Lymphocytes Percent Auto 22.8 % (25-40); Mean Corpuscular HGB Conc 32.6 % (30-36); Mean Corpuscular Volume 82.7 fL (80-100); Monocytes Absolute Auto 1000 /uL (0-900); Monocytes Percent Auto 9.8 % (3-14); Neutrophils Absolute Auto 6800 /uL (1500-7000); Platelet Count 263 X10^3/uL (150-400); Red Blood Cell Count 3.75 X10^6/uL (4.5-5.9); Red Cell Distribution Width 24.3 % (11.6-14.8); White Blood Cell Count 10.3 X10^3/uL (4.5-11.0)
--- NOTE | 2024-08-22 23:35 | PC.NURSE ---
Pt to imaging via ED stretcher with industrial ecology technician
[2024-08-22 23:41] LABS: Alanine Aminotransferase 14 IU/L (<50); Albumin 3.5 g/dL (3.5-5.0); Albumin Globulin Ratio 1.2 (1.0-2.8); Alkaline Phosphatase 77 U/L (38-126); Aspartate Aminotransferase 22 IU/L (17-59); BUN Creatinine Ratio 14.6 (6-22); Bilirubin Total 0.8 mg/dL (0.2-1.3); Blood Urea Nitrogen 13 mg/dL (9-20); Calcium 9.3 mg/dL (8.4-10.2); Carbon Dioxide 28 mmol/L (22-32); Chloride 100 mmol/L (98-107); Estimated Glomerular Filt Rate > 60 mL/min (>60); Glucose 98 mg/dL (80-110); HEMOLYSIS < 15 (0-50); Lipase 197 U/L (23-300); Magnesium 1.6 mg/dL (1.6-2.3); Potassium 3.2 mmol/L (3.4-5.1); Sodium 137 mmol/L (137-145); Total Protein 6.5 g/dL (6.3-8.2)
[2024-08-22 23:54] LABS: Anisocytosis 2+
[2024-08-23] VITALS: BP 132/78; PULSE 80; O2SAT 96
[2024-08-23 00:30] VITALS: BP 141/75; PULSE 81; O2SAT 95
[2024-08-23 00:55] VITALS: PULSE 81; RESP 14; O2SAT 95
[2024-08-23 00:56] LABS: Appearance Urine UA SL CLOUDY; Bilirubin Urine UA NEGATIVE (NEGATIVE); Color Urine UA YELLOW; Glucose Urine UA NEGATIVE (Negative); Ketones Urine UA NEGATIVE (NEGATIVE); Leukocyte Esterase Urine UA 3+ (NEGATIVE); Nitrite Urine UA NEGATIVE (Negative); Occult Blood Urine UA 3+ (Negative); Protein Urine UA 1+ (Negative); Specific Gravity Urine UA <=1.005 (1.000-1.035); Urobilinogen Urine UA 0.2 E.U./dL (0.2); pH Urine UA 6.5 (4.5-8.0)
[2024-08-23 00:59] LABS: Urine Volume 10mL (spun)
[2024-08-23 01:00] VITALS: BP 122/71
[2024-08-23 01:01] LABS: Bacteria Urine Many (>30); Calcium Oxalate Crystals Urine Occasional; RBC Urine 30-100/HPF (0-5/HPF); Squamous Epithelial Cell Urine 0-1 /HPF (0-5/HPF); WBC Urine >100/HPF (0-5/HPF)
[2024-08-23 01:02] LABS: Hyaline Casts Urine 0-1/LPF
[2024-08-23 01:05] LABS: Culture Indicated Urine Specimen Cultured
== END 2024-08-23 01:32 | disposition home or self-care (01) ==
PROVIDERS: Emergency Provider Student in an Organized Health Care Education/Training Program; PCP Internal Medicine
DX: R10.9 Unspecified abdominal pain (principal); C67.9 Malignant neoplasm of bladder, unspecified; Z43.6 Encounter for attention to other artificial openings of urinary tract; I10 Essential (primary) hypertension
CPT/HCPCS: 36415; 74176; 80053; 81001; 83690; 83735; 85025; 87077; 87086; 99283; 99284

== ENCOUNTER 2024-08-29 14:22 | Emergency (ER) | payer MEDICARE, SELFPAY ==
[2024-08-29] VITALS (18 sets, daily range): BP systolic 125–148; BP diastolic 72–86; PULSE 81–99; RESP 13–72; TEMP 36.6; O2SAT 96–100
--- NOTE | 2024-08-29 14:36 | DI.RAD.S_ITS ---
PROCEDURE: XR CHEST 1V INDICATIONS: altered mental status TECHNIQUE: One view of the chest was acquired. COMPARISON: [facility], CR, XR CHEST 1V, 10/18/2023, 21:03. [facility], CR, XR CHEST 1V, 08/22/2023, 15:30. FINDINGS: Surgical changes and devices: None. Lungs and pleura: Lungs are clear. No pleural effusions or pneumothorax. Mediastinum: Mediastinal contours appear normal. Heart size is prominent, stable. Bones and chest wall: No suspicious bony lesions. Overlying soft tissues appear unremarkable. IMPRESSION: No acute cardiopulmonary abnormality is seen. Dictated by: Cem Smiley M.D. on 08/29/2024 at 15:13 Approved by: Cem Smiley M.D. on 08/29/2024 at 15:14
--- NOTE | 2024-08-29 14:36 | EKG_ITS ---
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
[2024-08-29 14:49] LABS: Add Manual Diff / Slide Review NO; Basophils Absolute Auto 100 /uL (0-100); Basophils Percent Auto 0.4 % (0-2); Eosinophils Absolute Auto 0 /uL (0-450); Eosinophils Percent Auto 0.1 % (2-4); Hematocrit 35.3 % (41-53); Hemoglobin 11.3 g/dL (13.5-17.5); Lymphocytes Absolute Auto 3400 /uL (1100-4500); Lymphocytes Percent Auto 18.5 % (25-40); Mean Corpuscular HGB Conc 31.9 % (30-36); Mean Corpuscular Hemoglobin 27.3 PG (26-34); Mean Corpuscular Volume 85.4 fL (80-100); Monocytes Absolute Auto 800 /uL (0-900); Monocytes Percent Auto 4.6 % (3-14); Neutrophils Absolute Auto 14200 /uL (1500-7000); Neutrophils Percent Auto 76.4 % (50-75); Platelet Count 413 X10^3/uL (150-400); Red Blood Cell Count 4.13 X10^6/uL (4.5-5.9); Red Cell Distribution Width 22.8 % (11.6-14.8); White Blood Cell Count 18.5 X10^3/uL (4.5-11.0)
--- NOTE | 2024-08-29 14:53 | DI.CT.S_ITS ---
PROCEDURE: CT HEAD/BRAIN WO CON INDICATIONS: possible new dx seizure TECHNIQUE: Noncontrast 4.5 mm thick angled axial sections acquired from the foramen magnum to the vertex, with coronal and sagittal reformats. For radiation dose reduction, the following was used: automated exposure control, adjustment of mA and/or kV according to patient size. COMPARISON: [facility], CT, CT HEAD/BRAIN WO CON, 08/22/2023, 15:39. FINDINGS: Image quality: Diagnostic. CSF spaces: Basal cisterns are patent. No extra-axial fluid collections. The ventricles are symmetric in size and shape. Brain: No intracranial bleeds or masses. Stable left frontal encephalomalacia. There is cerebral volume loss for age, with resultant ventricular and sulcal prominence. There are periventricular and deep white matter chronic small vessel ischemic changes. There is intracranial internal carotid artery atherosclerosis. Skull and face: Posttraumatic changes to the inferior left frontal bone. Calvarium and visualized facial bones appear intact, without suspicious lesions. Sinuses: Visualized sinuses and mastoids are clear. IMPRESSION: No acute intracranial pathology. Stable posttraumatic changes to the anterior inferior left frontal lobe. Dictated by: Cem Smiley M.D. on 08/29/2024 at 15:28 Approved by: Cem Smiley M.D. on 08/29/2024 at 15:30
[2024-08-29 15:06] LABS: Anisocytosis 2+; Ovalocytes 1+
[2024-08-29 15:12] LABS: Alanine Aminotransferase 23 IU/L (<50); Albumin 3.7 g/dL (3.5-5.0); Albumin Globulin Ratio 1.3 (1.0-2.8); Alkaline Phosphatase 95 U/L (38-126); Aspartate Aminotransferase 31 IU/L (17-59); BUN Creatinine Ratio 12.6 (6-22); Bilirubin Total 0.5 mg/dL (0.2-1.3); Blood Urea Nitrogen 13 mg/dL (9-20); Calcium 8.9 mg/dL (8.4-10.2); Carbon Dioxide 17 mmol/L (22-32); Chloride 103 mmol/L (98-107); Estimated Glomerular Filt Rate > 60 mL/min (>60); Globulin 2.9 g/dL (1.7-4.1); Glucose 148 mg/dL (80-110); HEMOLYSIS < 15 (0-50); Potassium 3.4 mmol/L (3.4-5.1); Sodium 137 mmol/L (137-145); Total Protein 6.6 g/dL (6.3-8.2)
--- NOTE | 2024-08-29 16:11 | ED.SEIZURE ---
HPI - Seizure <Todd Jerome MD - Last Filed: 08/30/24 06:10> General Chief Complaint: Seizure Stated Complaint: r/o seizure Time Seen by Provider: 08/29/24 14:53 Source: EMS Mode of arrival: EMS Limitations: altered mental status History of Present Illness HPI Narrative: 78-year-old male with history of lung cancer status post prior lobectomy, history of prostate cancer, history of bladder cancer, has had bilateral nephrostomy tubes and suprapubic catheter for at least the last year and a half, care coordinated primarily through [facility] providers, lives in [place] with . Patient had recent urology interventions, with revision of bilateral nephrostomy tubes over this last weekend in [facility], discharged on fluconazole antifungal anti microbial for possible urine infection per . Tonight while sitting nearby had stiffening and throwing of his head back with upward backwards gaze of both eyes lasting for 45-60 seconds, and then confusion thereafter, with improvement of mental status back to baseline. No history of known seizures prior. EMS transport, glucose not reportedly low or high during transport, no recurrent stiffening or shaking like activities. No incontinence of stool, but has suprapubic catheters and nephrostomy tubes in place, none seemed to be dislodged. Related Data Home Medications Medication Instructions Recorded Confirmed amlodipine 10 mg tablet 10 mg PO DAILY 01/12/24 01/12/24 hydroxyzine pamoate 25 mg capsule 25 mg PO Q6H PRN anxiety 01/12/24 01/12/24 paroxetine HCl 20 mg tablet 40 mg PO ONCE PM 01/12/24 01/12/24 Previous Rx's Medication Instructions Recorded oxycodone 5 mg capsule 5 mg PO TID PRN pain #10 caps 06/26/23 oxycodone 5 mg tablet 5 mg PO Q6H PRN pain #10 tabs 09/01/23 ciprofloxacin HCl 500 mg tablet 500 mg PO Q12H #20 tabs 11/16/23 sulfamethoxazole 800 1 tab PO BID 10 days #20 tabs 08/29/24 mg-trimethoprim 160 mg tablet (Bactrim DS) Allergies Allergy/AdvReac Type Severity Reaction Status Date / Time codeine AdvReac Unknown Gastrointestinal Verified 01/29/24 19:05 Upset aspirin AdvReac Gastrointestinal Verified 09/08/24 19:05 Upset Patient History <Todd Jerome MD - Last Filed: 08/30/24 06:10> Social History Smoking Status: Current every day smoker Smoking Status: Current every day smoker tobacco type: cigarettes alcohol intake frequency: other Exam <Todd Jerome MD - Last Filed: 08/30/24 06:10> Narrative Exam Narrative: GENERAL: Well-developed patient, in mild distress. HEAD: Atraumatic. Normocephalic. EYES: Pupils equal round and reactive. Extraocular motions intact. No scleral icterus. No injection or drainage. ENT: Nose without bleeding, purulent drainage. Throat without erythema, tonsillar hypertrophy or exudate. Airway patent. NECK: Trachea midline. Non tender CARDIOVASCULAR: Regular rate and rhythm without murmurs, gallops, or rubs. RESPIRATORY: Clear to auscultation. Breath sounds equal bilaterally. No wheezes, rales, or rhonchi. GASTROINTESTINAL: Abdomen soft, non-tender, nondistended. Suprapubic catheter in place, site without tenderness or drainage or bleeding. No wincing on palpation. Collection bag without blood or clot or purulent fluid. EXTREMITIES: No edema or joint tenderness. BACK: Nontender without deformity or crepitance. No flank tenderness. Bilateral low lumbar region nephrostomy tube sites, skin sites and sutures seemed to look intact, no drainage around the sites onto dressings. Collection bags from right and left nephrostomy tubes without blood or clot or gross purulence. NEURO: AOx3. Motor functions grossly nonfocal SKIN: No rash or erythema of visible areas Initial Vital Signs Initial Vital Signs: Vital Signs Temperature 98 F 08/29/24 14:27 Pulse Rate 99 H 08/29/24 14:27 Respiratory Rate 16 08/29/24 14:27 Blood Pressure 141/79 H 08/29/24 14:27 Pulse Oximetry 100 08/29/24 14:27 Oxygen Delivery Method Room Air 08/29/24 14:27 <Ruddy Donaldson DO - Last Filed: 08/29/24 21:11> Initial Vital Signs Initial Vital Signs: Vital Signs Temperature 98 F 08/29/24 14:27 Pulse Rate 99 H 08/29/24 14:27 Respiratory Rate 16 08/29/24 14:27 Blood Pressure 141/79 H 08/29/24 14:27 Pulse Oximetry 100 08/29/24 14:27 Oxygen Delivery Method Room Air 08/29/24 14:27 Course <Todd Jerome MD - Last Filed: 08/30/24 06:10> Orders Ordered: Discontinued Medications Levetiracetam 1,000 mg/ Sodium (Chloride) 110 mls @ 440 mls/hr IV NOW ONE Stop: 08/29/24 16:50 Last Infusion: 08/29/24 18:14 Dose: Infused Documented By: Admin: 08/29/24 17:40 Dose: 440 mls/hr Documented By: JUANA Ceftriaxone Sodium 1,000 mg/ (Sodium Chloride) 100 mls @ 200 mls/hr IV NOW ONE Stop: 08/29/24 17:04 Last Infusion: 08/29/24 18:28 Dose: Infused Documented By: Admin: 08/29/24 17:41 Dose: 200 mls/hr Documented By: JUANA Vital Signs Vital signs: Vital Signs - 8 hr 08/29/24 14:27 08/29/24 14:56 08/29/24 15:00 Temperature 98 F Pulse Rate 99 H 94 H Respiratory Rate 16 19 Blood Pressure 141/79 H 131/77 Pulse Oximetry 100 98 Oxygen Delivery Method Room Air 08/29/24 15:00 08/29/24 15:14 08/29/24 15:14 Temperature Pulse Rate 91 H 95 H Respiratory Rate 19 Blood Pressure 142/74 H Pulse Oximetry 97 99 Oxygen Delivery Method 08/29/24 15:30 08/29/24 15:30 08/29/24 16:00 Temperature Pulse Rate 94 H Respiratory Rate 24 Blood Pressure 147/85 H 136/75 Pulse Oximetry 99 Oxygen Delivery Method 08/29/24 16:00 08/29/24 16:30 08/29/24 16:30 Temperature Pulse Rate 91 H 94 H Respiratory Rate 17 Blood Pressure 148/74 H Pulse Oximetry 98 99 Oxygen Delivery Method 08/29/24 16:35 08/29/24 16:35 08/29/24 17:00 Temperature Pulse Rate 94 H Respiratory Rate 21 Blood Pressure 144/78 H 128/80 Pulse Oximetry 99 Oxygen Delivery Method 08/29/24 17:00 08/29/24 17:30 08/29/24 17:30 Temperature Pulse Rate 89 91 H Respiratory Rate 22 13 Blood Pressure 141/85 H Pulse Oximetry 97 Oxygen Delivery Method 08/29/24 18:01 08/29/24 18:30 08/29/24 19:00 Temperature Pulse Rate 87 82 81 Respiratory Rate 72 H 17 21 Blood Pressure Pulse Oximetry 96 97 98 Oxygen Delivery Method 08/29/24 19:26 08/29/24 19:26 08/29/24 19:30 Temperature Pulse Rate 82 Respiratory Rate 28 H Blood Pressure 131/76 125/72 Pulse Oximetry 97 Oxygen Delivery Method 08/29/24 19:30 Temperature Pulse Rate 81 Respiratory Rate 34 H Blood Pressure Pulse Oximetry 97 Oxygen Delivery Method Room Air <Ruddy Donaldson, - Last Filed: 08/29/24 21:11> Orders Ordered: Discontinued Medications Levetiracetam 1,000 mg/ Sodium (Chloride) 110 mls @ 440 mls/hr IV NOW ONE Stop: 08/29/24 16:50 Last Infusion: 08/29/24 18:14 Dose: Infused Documented By: Admin: 08/29/24 17:40 Dose: 440 mls/hr Documented By: JUANA Ceftriaxone Sodium 1,000 mg/ (Sodium Chloride) 100 mls @ 200 mls/hr IV NOW ONE Stop: 08/29/24 17:04 Last Infusion: 08/29/24 18:28 Dose: Infused Documented By: Admin: 08/29/24 17:41 Dose: 200 mls/hr Documented By: JUANA Vital Signs Vital signs: Vital Signs - 8 hr 08/29/24 14:27 08/29/24 14:56 08/29/24 15:00 Temperature 98 F Pulse Rate 99 H 94 H Respiratory Rate 16 19 Blood Pressure 141/79 H 131/77 Pulse Oximetry 100 98 Oxygen Delivery Method Room Air 08/29/24 15:00 08/29/24 15:14 08/29/24 15:14 Temperature Pulse Rate 91 H 95 H Respiratory Rate 19 Blood Pressure 142/74 H Pulse Oximetry 97 99 Oxygen Delivery Method 08/29/24 15:30 08/29/24 15:30 08/29/24 16:00 Temperature Pulse Rate 94 H Respiratory Rate 24 Blood Pressure 147/85 H 136/75 Pulse Oximetry 99 Oxygen Delivery Method 08/29/24 16:00 08/29/24 16:30 08/29/24 16:30 Temperature Pulse Rate 91 H 94 H Respiratory Rate 17 Blood Pressure 148/74 H Pulse Oximetry 98 99 Oxygen Delivery Method 08/29/24 16:35 08/29/24 16:35 08/29/24 17:00 Temperature Pulse Rate 94 H Respiratory Rate 21 Blood Pressure 144/78 H 128/80 Pulse Oximetry 99 Oxygen Delivery Method 08/29/24 17:00 08/29/24 17:30 08/29/24 17:30 Temperature Pulse Rate 89 91 H Respiratory Rate 22 13 Blood Pressure 141/85 H Pulse Oximetry 97 Oxygen Delivery Method 08/29/24 18:01 08/29/24 18:30 08/29/24 19:00 Temperature Pulse Rate 87 82 81 Respiratory Rate 72 H 17 21 Blood Pressure Pulse Oximetry 96 97 98 Oxygen Delivery Method 08/29/24 19:26 08/29/24 19:26 08/29/24 19:30 Temperature Pulse Rate 82 Respiratory Rate 28 H Blood Pressure 131/76 125/72 Pulse Oximetry 97 Oxygen Delivery Method 08/29/24 19:30 Temperature Pulse Rate 81 Respiratory Rate 34 H Blood Pressure Pulse Oximetry 97 Oxygen Delivery Method Room Air MDM - Seizure <Todd Jerome MD - Last Filed: 08/30/24 06:10> Lab Data 08/29/24 14:34 08/29/24 14:34 Labs: Lab Results 08/29/24 08/29/24 Range/Units 14:34 16:15 WBC 18.5 H (4.5-11.0) X10^3/uL RBC 4.13 L (4.5-5.9) X10^6/uL Hgb 11.3 L (13.5-17.5) g/dL Hct 35.3 L (41-53) % MCV 85.4 (80-100) fL MCH 27.3 (26-34) PG MCHC 31.9 (30-36) % RDW 22.8 H (11.6-14.8) % Plt Count 413 H (150-400) X10^3/uL Neut % (Auto) 76.4 H (50-75) % Lymph % (Auto) 18.5 L (25-40) % [place] % (Auto) 4.6 (3-14) % Eos % (Auto) 0.1 L (2-4) % Baso % (Auto) 0.4 (0-2) % Neut # (Auto) 38210 H (5829-8977) /uL Lymph # (Auto) 3400 (3461-1415) /uL [place] # (Auto) 800 (0-900) /uL Eos # (Auto) 0 (0-450) /uL Baso # (Auto) 100 (0-100) /uL RBC Morphology See below Anisocytosis 2+ H Ovalocytes 1+ H Sodium 137 (137-145) mmol/L Potassium 3.4 (3.4-5.1) mmol/L Chloride 103 (98-107) mmol/L Carbon Dioxide 17 L (22-32) mmol/L BUN 13 (9-20) mg/dL Creatinine 1.03 (0.66-1.25) mg/dL Estimated GFR > 60 (>60) mL/min BUN/Creatinine Ratio 12.6 (6-22) Glucose 148 H (80-110) mg/dL Calcium 8.9 (8.4-10.2) mg/dL Total Bilirubin 0.5 (0.2-1.3) mg/dL AST 31 (17-59) IU/L ALT 23 (<50) IU/L Alkaline Phosphatase 95 (38-126) U/L Total Protein 6.6 (6.3-8.2) g/dL Albumin 3.7 (3.5-5.0) g/dL Globulin 2.9 (1.7-4.1) g/dL Albumin/Globulin Ratio 1.3 (1.0-2.8) Urine RBC 5-10/hpf H (0-5/HPF) Urine WBC 5-10/hpf H (0-5/HPF) Ur Squamous Epith Cells 1-5 /hpf (0-5/HPF) Urine Bacteria Moderate (10-30) H (None) Ur Culture Indicated? Specimen cultured Vol Urine Centrifuged 2 U Opiates 300ng/mL cut Positive H (Negative) Ur Oxycodone Screen Positive H (Negative) Urine Methadone Screen Negative (Negative) Ur Barbiturates Screen Negative (Negative) U Tricyclic Antidepress Negative (Negative) Ur Phencyclidine Scrn Negative (Negative) Ur Amphetamines Screen Negative (Negative) U Methamphetamines Scrn Negative (Negative) Ur MDMA Scrn (Ecstasy) Negative (Negative) U Benzodiazepines Scrn Negative (Negative) Urine Cocaine Screen Negative (Negative) U Marijuana (THC) Screen Negative (Negative) Urine pH Normal (Normal) Urine Specific [place] Normal (Normal) Ur Creatinine Normal (Normal) Point of Care Testing Glucose POC 210 Urine Dip Bedside Urine Glucose Negative Bedside Urine Bilirubin - Negative Bedside Urine Ketone - Negative Urine Specific [place] 1.015 Bedside Urine Occult Blood +++ Bedside Urine pH 6.5 Bedside Urine Protein +++ 300 Bedside Urine Urobilinogen - Negative Bedside Urine Nitrite - Negative Bedside Urine Leukocytes +++ 500 Esterase Imaging Data Chest x-ray: Radiologist's Impression: [address] [address] XRay Report Signed Patient: Ramirez Foster MR#: [id number] : 1945 Acct:[id number] Age/Sex: 78 / M Date of Service: 08/29/24 Loc: ED Accession Number: [id number] Procedure: XR chest 1V Ordering Provider: Todd Jerome MD PROCEDURE: XR CHEST 1V INDICATIONS: altered mental status TECHNIQUE: One view of the chest was acquired. COMPARISON: [facility], CR, XR CHEST 1V, 10/18/2023, 21:03. [facility], CR, XR CHEST 1V, 08/22/2023, 15:30. FINDINGS: Surgical changes and devices: None. Lungs and pleura: Lungs are clear. No pleural effusions or pneumothorax. Mediastinum: Mediastinal contours appear normal. Heart size is prominent, stable. Bones and chest wall: No suspicious bony lesions. Overlying soft tissues appear unremarkable. IMPRESSION: No acute cardiopulmonary abnormality is seen. Dictated by: Cem Smiley M.D. on 08/29/2024 at 15:13 Approved by: Cem Smiley M.D. on 08/29/2024 at 15:14 CT scan - head: Radiologist's Impression: [address] [address] [address] Scan Report Signed Patient: Ramirez Foster MR#: [id number] : 1945 Acct:[id number] Age/Sex: 78 / M Date of Service: 08/29/24 Loc: ED Accession Number: [id number] Procedure: CT head/brain wo con Ordering Provider: Todd Jerome MD PROCEDURE: CT HEAD/BRAIN WO CON INDICATIONS: possible new dx seizure TECHNIQUE: Noncontrast 4.5 mm thick angled axial sections acquired from the foramen magnum to the vertex, with coronal and sagittal reformats. For radiation dose reduction, the following was used: automated exposure control, adjustment of mA and/or kV according to patient size. COMPARISON: [facility], CT, CT HEAD/BRAIN WO CON, 08/22/2023, 15:39. FINDINGS: Image quality: Diagnostic. CSF spaces: Basal cisterns are patent. No extra-axial fluid collections. The ventricles are symmetric in size and shape. Brain: No intracranial bleeds or masses. Stable left frontal encephalomalacia. There is cerebral volume loss for age, with resultant ventricular and sulcal prominence. There are periventricular and deep white matter chronic small vessel ischemic changes. There is intracranial internal carotid artery atherosclerosis. Skull and face: Posttraumatic changes to the inferior left frontal bone. Calvarium and visualized facial bones appear intact, without suspicious lesions. Sinuses: Visualized sinuses and mastoids are clear. IMPRESSION: No acute intracranial pathology. Stable posttraumatic changes to the anterior inferior left frontal lobe. Dictated by: Cem Smiley M.D. on 08/29/2024 at 15:28 Approved by: Cem Smiley M.D. on 08/29/2024 at 15:30 ECG Data Attestation: I personally reviewed and interpreted this ECG as follows: Interpretation: Normal sinus rhythm with rate 97, no obvious ST segment elevation or depression changes. QTC 505 prolonged noted. [place] 134, QRS 96. [facility] Narrative Medical decision making narrative: 78-year-old male without history of known seizure disorder, history of lung cancer, prostate cancer, bladder cancer, status post suprapubic catheter, has had bilateral nephrostomy tubes with recent revision procedures over this last weekend at [facility] where his complex medical care is coordinated. Ongoing oral therapy for prostate cancer. Stiffening and eyes rolling back event less than 1 minute duration with confusion, seems consistent with suspected seizure and postictal period. Seems recovered to baseline per family members at bedside. CT head ordered, labs pending, urinalysis requested. IV Keppra 1g load. Head CT without acute changes, see radiology report. White blood cell count 67405, serum CO2 19 diminished, consistent with recent seizure. Chest x-ray shows no obvious infiltrate. Urinalysis shows pyuria and bacteriuria. Patient is apparently on fluconazole antifungal, urine culture requested. IV ceftriaxone for UTI coverage. 1730, DNR/DNI code status reported on triage, discussed with at bedside who is medical power of litigation attorney. No heroic measures, however she would like to pursue continued diagnostic testing to look for treatable reversible causes of problems, and patient seems to be on chemotherapy/immunotherapy regimens, followed by palliative care. Recent urology procedure with revision of nephrostomy tubes to larger sizes. Consider CT abdomen and pelvis imaging. They would like to pursue this. Renal function adequate. CT abdomen and pelvis with IV contrast ordered. 183, CT abdomen and pelvis results pending. Signed out to Dr. Donaldson <Ruddy Donaldson, DO - Last Filed: 08/29/24 21:11> Lab Data Labs: Lab Results 08/29/24 08/29/24 Range/Units 14:34 16:15 WBC 18.5 H (4.5-11.0) X10^3/uL RBC 4.13 L (4.5-5.9) X10^6/uL Hgb 11.3 L (13.5-17.5) g/dL Hct 35.3 L (41-53) % MCV 85.4 (80-100) fL MCH 27.3 (26-34) PG MCHC 31.9 (30-36) % RDW 22.8 H (11.6-14.8) % Plt Count 413 H (150-400) X10^3/uL Neut % (Auto) 76.4 H (50-75) % Lymph % (Auto) 18.5 L (25-40) % [place] % (Auto) 4.6 (3-14) % Eos % (Auto) 0.1 L (2-4) % Baso % (Auto) 0.4 (0-2) % Neut # (Auto) 85498 H (3995-4147) /uL Lymph # (Auto) 3400 (3162-1858) /uL [place] # (Auto) 800 (0-900) /uL Eos # (Auto) 0 (0-450) /uL Baso # (Auto) 100 (0-100) /uL RBC Morphology See below Anisocytosis 2+ H Ovalocytes 1+ H Sodium 137 (137-145) mmol/L Potassium 3.4 (3.4-5.1) mmol/L Chloride 103 (98-107) mmol/L Carbon Dioxide 17 L (22-32) mmol/L BUN 13 (9-20) mg/dL Creatinine 1.03 (0.66-1.25) mg/dL Estimated GFR > 60 (>60) mL/min BUN/Creatinine Ratio 12.6 (6-22) Glucose 148 H (80-110) mg/dL Calcium 8.9 (8.4-10.2) mg/dL Total Bilirubin 0.5 (0.2-1.3) mg/dL AST 31 (17-59) IU/L ALT 23 (<50) IU/L Alkaline Phosphatase 95 (38-126) U/L Total Protein 6.6 (6.3-8.2) g/dL Albumin 3.7 (3.5-5.0) g/dL Globulin 2.9 (1.7-4.1) g/dL Albumin/Globulin Ratio 1.3 (1.0-2.8) Urine RBC 5-10/hpf H (0-5/HPF) Urine WBC 5-10/hpf H (0-5/HPF) Ur Squamous Epith Cells 1-5 /hpf (0-5/HPF) Urine Bacteria Moderate (10-30) H (None) Ur Culture Indicated? Specimen cultured Vol Urine Centrifuged 2 U Opiates 300ng/mL cut Positive H (Negative) Ur Oxycodone Screen Positive H (Negative) Urine Methadone Screen Negative (Negative) Ur Barbiturates Screen Negative (Negative) U Tricyclic Antidepress Negative (Negative) Ur Phencyclidine Scrn Negative (Negative) Ur Amphetamines Screen Negative (Negative) U Methamphetamines Scrn Negative (Negative) Ur MDMA Scrn (Ecstasy) Negative (Negative) U Benzodiazepines Scrn Negative (Negative) Urine Cocaine Screen Negative (Negative) U Marijuana (THC) Screen Negative (Negative) Urine pH Normal (Normal) Urine Specific [place] Normal (Normal) Ur Creatinine Normal (Normal) Point of Care Testing Glucose POC 210 Urine Dip Bedside Urine Glucose Negative Bedside Urine Bilirubin - Negative Bedside Urine Ketone - Negative Urine Specific [place] 1.015 Bedside Urine Occult Blood +++ Bedside Urine pH 6.5 Bedside Urine Protein +++ 300 Bedside Urine Urobilinogen - Negative Bedside Urine Nitrite - Negative Bedside Urine Leukocytes +++ [address] scan - abdomen/pelvis: Radiologist's Impression: Impression: 1. New prominent bowel wall thickening throughout the descending sigmoid colon and rectum is suspicious for nonspecific proctocolitis 2. The gallbladder is decompressed by a suprapubic catheter and no residual luminal gas or heterogeneous contents identified 3. Bilateral percutaneous nephrostomy tubes are present in expected position. No hydronephrosis. Mild left urolithiasis enhancement of the renal pelvis and ureter could indicate residual pyelitis MDM Narrative Medical decision making narrative: 78-year-old male without history of known seizure disorder, history of lung cancer, prostate cancer, bladder cancer, status post suprapubic catheter, has had bilateral nephrostomy tubes with recent revision procedures over this last weekend at [facility] where his complex medical care is coordinated. Ongoing oral therapy for prostate cancer. Stiffening and eyes rolling back event less than 1 minute duration with confusion, seems consistent with suspected seizure and postictal period. Seems recovered to baseline per family members at bedside. CT head ordered, labs pending, urinalysis requested. IV Keppra 1g load. Head CT without acute changes, see radiology report. White blood cell count 13254, serum CO2 19 diminished, consistent with recent seizure. Chest x-ray shows no obvious infiltrate. Urinalysis shows pyuria and bacteriuria. Patient is apparently on fluconazole antifungal, urine culture requested. IV ceftriaxone for UTI coverage. 1730, DNR/DNI code status reported on triage, discussed with at bedside who is medical power of litigation attorney. No heroic measures, however she would like to pursue continued diagnostic testing to look for treatable reversible causes of problems, and patient seems to be on chemotherapy/immunotherapy regimens, followed by palliative care. Recent urology procedure with revision of nephrostomy tubes to larger sizes. Consider CT abdomen and pelvis imaging. They would like to pursue this. Renal function adequate. CT abdomen and pelvis with IV contrast ordered. 1829, CT abdomen and pelvis results pending. Signed out to Dr. Donaldson 2054: CT scan showing possible residual pyelitis, therefore we will send patient home on Keflex, patient has already received IV ceftriaxone for UTI. Discussed case with patient and family member at bedside state that they should follow up with their care team/palliative team to discuss possible need for prophylactic Keppra, however at this time given 1st seizure with normal CT scan no indication to initiate Keppra at this time. They were given strict return precautions they verbalized understanding of this and agree with being discharged home with outpatient follow up Discharge Plan Departure Patient Disposition: Home Clinical Impression: Seizure-like activity, Acute pyelonephritis Instructions: DI for Seizure Disorder -- Adult Activity Restrictions/Additional Instructions: Please follow up with your palliative care team Please read the discharge instructions sheet carefully and bring all papers to all doctor follow-up visits, as it may contain information that your doctor may want to see. Disease processes change and evolve, if your symptoms worsen or if you develop any new symptoms that are concerning to you please return for evaluation. Your evaluation today does not show any evidence of any life-threatening/serious illnesses requiring admission to the hospital or surgery. Please follow-up with your doctor for re-evaluation in approximately 1 day. Seek immediate medical attention for any worrisome symptoms. *If you do not have a primary care provider please contact the [facility] Resource line at [phone]. They will ask some questions about your medical history and help get you set up with a doctor in the community. Prescriptions: New sulfamethoxazole-trimethoprim [Bactrim DS] 800-160 mg tablet 1 tab PO BID 10 Days Qty: 20 0RF No Action oxycodone 5 mg capsule 5 mg PO TID PRN (Reason: pain) Qty: 10 0RF oxycodone 5 mg tablet 5 mg PO Q6H PRN (Reason: pain) Qty: 10 0RF ciprofloxacin HCl 500 mg tablet 500 mg PO Q12H Qty: 20 0RF hydroxyzine pamoate 25 mg capsule 25 mg PO Q6H PRN (Reason: anxiety) paroxetine HCl 20 mg tablet 40 mg PO ONCE PM amlodipine 10 mg tablet 10 mg PO DAILY Referrals: Diego Green MD [Primary Care Provider] - Stand Alone Forms: Patient Portal/API/Survey
[2024-08-29 16:31] LABS: UR Morphine/Opiate cutoff 300 Positive (Negative); Ur Creatinine Normal (Normal); Ur Specific Gravity Normal (Normal); Urine Amphetamines Negative (Negative); Urine Barbiturates Negative (Negative); Urine Benzodiazepines Negative (Negative); Urine Cocaine Negative (Negative); Urine MDMA Negative (Negative); Urine Methadone Negative (Negative); Urine Methamphetamines Negative (Negative); Urine Oxycodone Positive (Negative); Urine Phencyclidine Negative (Negative); Urine Tetrahydrocannabinol Negative (Negative); Urine Tricyclic Antidepressant Negative (Negative); Urine pH Normal (Normal)
--- NOTE | 2024-08-29 16:47 | PC.NURSE ---
Suprapubic urostomy dressing changed. Some redness around urostomy site observed. Dr Jerome notified of small rash.
[2024-08-29 16:55] LABS: Urine Volume 2
[2024-08-29 16:56] LABS: Bacteria Urine Moderate (10-30); Culture Indicated Urine Specimen Cultured; RBC Urine 5-10/HPF (0-5/HPF); Squamous Epithelial Cell Urine 1-5 /HPF (0-5/HPF); WBC Urine 5-10/HPF (0-5/HPF)
[2024-08-29] MEDS: levETIRAcetam 1,000 MG in SODIUM CHLORIDE 0.9% 100 ML 440 MG IV (17:40)
[2024-08-29] MEDS: cefTRIAXone 1,000 MG in SODIUM CHLORIDE 0.9% 100 ML 200 MG IV (17:41)
--- NOTE | 2024-08-29 17:41 | DI.CT.S_ITS ---
PROCEDURE: CT ABDOMEN PELVIS W CON INDICATIONS: nepphrostomy tube changes days ago, UTI, eval TECHNIQUE: After the administration of intravenous contrast, axial sections acquired from the lung bases to the pubic symphysis. Coronal and sagittal reformats were performed. For radiation dose reduction, the following was used: automated exposure control, adjustment of mA and/or kV according to patient size. COMPARISON: [facility], CT, CT ABDOMEN PELVIS W CON, 01/11/2024, 12:34. [facility], CT, CT ABDOMEN PELVIS W CON, 10/18/2023, 21:52. FINDINGS: Image quality: Diagnostic. Lower Chest: Emphysematous changes in the lung bases. ABDOMEN: Liver: Stable hypoattenuating lesion in the right hepatic lobe with central calcification. Gallbladder: Gallbladder is distended without gallstones or surrounding inflammatory changes. Biliary ducts: Mild intrahepatic biliary ductal dilatation within the left hepatic lobe. Common bile duct appears diffusely dilated. No calcified choledocholith. Pancreas: No ductal dilation. Spleen: Previously seen hypoattenuating region in the spleen is no longer seen, presumably related to contrast timing on the prior exam. Adrenal Glands: No adrenal nodules. Kidneys and Ureters: Left percutaneous nephrostomy tube is present with pigtail loop in the renal pelvis. Mild urothelial enhancement within the left renal pelvis and proximal ureter. No significant left hydronephrosis. Right-sided percutaneous nephrostomy tube is also present, likely with tip in the renal pelvis. Prior right-sided hydronephrosis has resolved. Stomach and Bowel: Prominent bowel wall thickening in the descending and sigmoid colon and the rectum. Status post appendectomy. Small bowel loops are unremarkable. Peritoneum: No abnormal intraperitoneal fluid. No free air. Ventral Wall: No significant ventral hernia. Abdominal Nodes: No retroperitoneal or mesenteric adenopathy by size criteria. Vessels: Aorta and inferior vena cava are normal in size. PELVIS: Pelvic Organs: Prostate not well visualized. Bladder: Bladder is decompressed by a percutaneous suprapubic catheter. Pelvic Nodes: No enlarged lymph nodes. Miscellaneous: No inguinal hernias are seen. Bones: Extensive metal streak artifact related to bilateral hip arthroplasties obscures the pelvis. Chronic posttraumatic findings in the right pubic bone and ischium. Unchanged left sacral fracture. IMPRESSION: 1. New prominent bowel wall thickening throughout the descending sigmoid colon and rectum is suspicious for a nonspecific proctocolitis. 2. The bladder is decompressed by a suprapubic catheter and no residual luminal gas or heterogeneous contents identified. 3. Bilateral percutaneous nephrostomy tubes are present in expected positions. No hydronephrosis. Mild left urothelial enhancement in the renal pelvis and ureter could indicate residual pyelitis. Approved by: Zelalem Cutler M.D. on 08/29/2024 at 18:40
--- NOTE | 2024-08-29 19:06 | PC.NURSE ---
Pt resting quietly with eyes closed, resps even and not labored. No distress noted at this time. Pt remains connected to cardiac, resp, blood pressure, and pulse ox monitors with alarms on and audible. No seizure activity noted at this time. Call light within reach. Seizure precautions remain in place. is at bedside.
== END 2024-08-29 21:41 | disposition home or self-care (01) ==
PROVIDERS: Emergency Medicine; Emergency Provider Student in an Organized Health Care Education/Training Program; PCP Internal Medicine
DX: N10 Acute pyelonephritis (principal); R56.9 Unspecified convulsions; Z85.118 Personal history of other malignant neoplasm of bronchus and lung; Z85.46 Personal history of malignant neoplasm of prostate; Z85.51 Personal history of malignant neoplasm of bladder; F17.210 Nicotine dependence, cigarettes, uncomplicated
CPT/HCPCS: 70450; 71045; 74177; 80053; 80305; 81003; 81015; 82962; 85025; 87040; 87077; 87086; 93005; 96365; 96367; 99284; J0696; J1953; Q9967

== ENCOUNTER 2024-08-30 15:17 | Emergency (ER) | payer MEDICARE, SELFPAY ==
[2024-08-30] VITALS (14 sets, daily range): BP systolic 116–134; BP diastolic 71–82; PULSE 84–105; RESP 18–25; TEMP 37.3; O2SAT 95–99; BMI 20.3
--- NOTE | 2024-08-30 15:38 | DI.RAD.S_ITS ---
PROCEDURE: XR CHEST 1V INDICATIONS: suspected sepsis TECHNIQUE: One view of the chest was acquired. COMPARISON: [facility], CR, XR CHEST 1V, 08/29/2024, 14:46. FINDINGS: Surgical changes and devices: None. Lungs and pleura: Lungs are clear. No pleural effusions or pneumothorax. Mediastinum: Tortuous thoracic aorta. Heart size is mildly enlarged. Bones and chest wall: No suspicious bony lesions. Overlying soft tissues appear unremarkable. IMPRESSION: No acute cardiopulmonary pathology. Dictated by: Leno Xavier M.D. on 08/30/2024 at 16:57 Approved by: Leno Xavier M.D. on 08/30/2024 at 16:58
[2024-08-30 16:23] LABS: Basophils Absolute Auto 0 /uL (0-100); Basophils Percent Auto 0.3 % (0-2); Eosinophils Absolute Auto 0 /uL (0-450); Eosinophils Percent Auto 0.2 % (2-4); Hematocrit 31.1 % (41-53); Lymphocytes Absolute Auto 1100 /uL (1100-4500); Lymphocytes Percent Auto 6.7 % (25-40); Mean Corpuscular HGB Conc 32.3 % (30-36); Mean Corpuscular Hemoglobin 27.3 PG (26-34); Mean Corpuscular Volume 84.6 fL (80-100); Monocytes Absolute Auto 700 /uL (0-900); Monocytes Percent Auto 4.2 % (3-14); Neutrophils Absolute Auto 14000 /uL (1500-7000); Neutrophils Percent Auto 88.6 % (50-75); Platelet Count 390 X10^3/uL (150-400); Red Blood Cell Count 3.68 X10^6/uL (4.5-5.9); Red Cell Distribution Width 22.6 % (11.6-14.8); White Blood Cell Count 15.8 X10^3/uL (4.5-11.0)
[2024-08-30 16:24] LABS: Add Manual Diff / Slide Review SLIDE REVIEW
[2024-08-30 16:30] LABS: Prothrombin Time 11.3 SECONDS (9.4-12.5)
[2024-08-30 16:32] LABS: Lactate (Lactic Acid) 0.9 mmol/L (0.7-2.1)
[2024-08-30 16:33] LABS: Alanine Aminotransferase 13 IU/L (<50); Albumin 3.1 g/dL (3.5-5.0); Albumin Globulin Ratio 1.2 (1.0-2.8); Alkaline Phosphatase 80 U/L (38-126); Aspartate Aminotransferase 24 IU/L (17-59); BUN Creatinine Ratio 11.9 (6-22); Bilirubin Total 0.5 mg/dL (0.2-1.3); Blood Urea Nitrogen 12 mg/dL (9-20); Calcium 8.5 mg/dL (8.4-10.2); Carbon Dioxide 24 mmol/L (22-32); Chloride 105 mmol/L (98-107); Estimated Glomerular Filt Rate > 60 mL/min (>60); Globulin 2.6 g/dL (1.7-4.1); Glucose 103 mg/dL (80-110); HEMOLYSIS < 15 (0-50); Lipase 66 U/L (23-300); PTT Partial Thromboplastin Tim 28 SECONDS (25.1-36.5); Potassium 3.3 mmol/L (3.4-5.1); Sodium 136 mmol/L (137-145); Total Protein 5.7 g/dL (6.3-8.2)
[2024-08-30 16:36] LABS: Anisocytosis 1+
[2024-08-30 16:37] LABS: Hypochromasia 1+
--- NOTE | 2024-08-30 16:48 | EKG_ITS ---
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
[2024-08-30 16:50] LABS: Procalcitonin 0.124 ng/mL (<0.5)
--- NOTE | 2024-08-30 18:23 | CM.DANOTE ---
DCP Assessment Note: Pt is a 78yo male, resident of [place], is seen in the ED for weakness. Pt has a hx of bladder, lung, and prostate CA. He was seen in the ED on 08/29/24 for a witnessed seizure. Pt lives in a house with his , Rosaura, who is the patient's primary caregiver. Pt's Primary Care Provider is Dr. Diego Green and insurance is Medicare and [facility]. Reviewed chart and discussed with multidisciplinary team pt's medical status and initial discharge needs. ED BUILDING ARCHITECTURAL DESIGNER met w/patient at bedside; introduced self and role. Present in the room is pt's . Pt was asleep throughout assessment until he was brought to MRI. Pt confirmed that pt has been dealing with this for the past 18 months. They have done a round of radiation, several months of palliative chemotherapy infusions; all with [facility]. Per , she was notified by providers at that a MRI would be helpful due to pt's most recent new onset of seizures and weakness. Pt states pt is open with [facility] for RN and PT. Not open with Hospice services at this time. Pt states she is hopeful to hear of MRI results and Provider recommendations. Plan: Pending MRI results and ED Provider recommendations, ED BUILDING ARCHITECTURAL DESIGNER following for possible Hospice referral and coordination of discharge plans. RICARDO Liang Discharge Planning/Care Management CM Discharge Assessment Start: 08/30/24 18:20 Freq: Status: Active Protocol: Document 08/30/24 18:21 MW (Rec: 08/30/24 18:23 MW [id number]) Discharge Planning Assessment Assigned Aerospace Stress Engineer JASON Mares DPOA/Assigned Designee Name Kwesi Kaplan Contact Information [phone] Advance Directives? No History Provided By Family Member,Medical Record Prior Living Arrangements House Household Members spouse Type of transporation used prior to Relies on Others admit Independent with ADL's No Is patient alert and oriented? Yes Caregiver for Another No Community Services used prior to Physical Therapy,Home Health admission: Aid,Home Health Nurse Comment [facility] per pt DME Already Rented / Owned Wheelchair,FWW / Walker Barriers to Discharge No Additional Comment possible hospice referral, pending final MD recommendations Review Status In Process Please Provide Date Initial DC 08/30/24 Assessment Was Performed Next Review Type Continued Stay Review
--- NOTE | 2024-08-30 18:24 | DI.MRI.S_ITS ---
PROCEDURE: MR HEAD/BRAIN WO CON INDICATIONS: sz, CT head yest, fam wants MRI BRain new seizure TECHNIQUE: Non-contrast axial T1 spin echo, axial T2 fast spin echo, sagittal and axial FLAIR, coronal T2 fast spin echo, axial gradient echo, axial diffusion and ADC through the brain. COMPARISON: CT head noncontrast 08/29/2024. FINDINGS: Image quality: Diagnostic. CSF spaces: Ventricles appear symmetric in size and shape. Basal cisterns are patent. No extra-axial fluid collections. Brain: Redemonstration of left frontal encephalomalacia. No intracranial bleeds or mass effects. There is cerebral volume loss for age. There are periventricular and deep white matter chronic small vessel ischemic changes. Brainstem appears normal. Diffusion-weighted images show no acute infarct. No chronic ischemic insults. Normal intravascular flow voids are present. Skull and face: Calvarial bone marrow is normal in signal. Orbits are normal. Redemonstration of posttraumatic changes to the inferior left frontal bone. Sinuses: Sinuses and mastoids are clear. IMPRESSION: No acute intracranial abnormality. Stable changes to the anterior left inferior frontal lobe. Approved by: Saniya Ma M.D.,Ph.D. on 08/30/2024 at 19:07
--- NOTE | 2024-08-30 20:15 | ED_ITS ---
HPI - Seizure General Chief Complaint: Seizure Stated Complaint: seizure Time Seen by Provider: 08/30/24 16:15 History of Present Illness HPI Narrative: 78-year-old male with a past medical history of lung cancer, prostate cancer, bladder cancer, with bilateral nephrostomy tubes on palliative care treatment chemo who was seen here yesterday for seizures brought in today for MRI. She states that she called her palliative care team at [facility] and was instructed to come to the ED to obtain an MRI. There is no new complaints at this time, patient has not had another witnessed seizure since being discharged from this hospital 24 hours ago. Related Data Home Medications Medication Instructions Recorded Confirmed amlodipine 10 mg tablet 10 mg PO DAILY 01/12/24 01/12/24 hydroxyzine pamoate 25 mg capsule 25 mg PO Q6H PRN anxiety 01/12/24 01/12/24 paroxetine HCl 20 mg tablet 40 mg PO ONCE PM 01/12/24 01/12/24 Previous Rx's Medication Instructions Recorded oxycodone 5 mg capsule 5 mg PO TID PRN pain #10 caps 06/26/23 oxycodone 5 mg tablet 5 mg PO Q6H PRN pain #10 tabs 09/01/23 ciprofloxacin HCl 500 mg tablet 500 mg PO Q12H #20 tabs 11/16/23 sulfamethoxazole 800 1 tab PO BID 10 days #20 tabs 08/29/24 mg-trimethoprim 160 mg tablet (Bactrim DS) Allergies Allergy/AdvReac Type Severity Reaction Status Date / Time codeine AdvReac Unknown Gastrointestinal Verified 01/29/24 19:05 Upset aspirin AdvReac Gastrointestinal Verified 01/29/24 19:05 Upset Review of Systems Review of Systems Narrative: General: Wants MRI, Denies fever, chills, weight loss HEENT: Denies headache, eye drainage, eye irritation, head trauma, sore throat, voice change Cardiovascular: Denies any chest pain, palpitations, tachycardia Respiratory: Denies any shortness of breath, cough, wheeze, stridor GI/: Denies any abdominal pain, nausea, vomiting, diarrhea, bright red blood per rectum, melanotic stools, urinary frequency, urinary retention, dysuria, hematuria MSK: Denies any joint pain, muscle pains, swelling Skin: Denies any rashes, lesions, discoloration Neuro: Denies any headache, lightheadedness, dizziness, fainting, weakness Psych: Denies SI/HI Patient History Social History household members: spouse Smoking Status: Current every day smoker tobacco type: cigarettes alcohol intake frequency: other Exam Narrative Exam Narrative: GENERAL: Well-developed patient, in mild distress. HEAD: Atraumatic. Normocephalic. EYES: Pupils equal round and reactive. Extraocular motions intact. No scleral icterus. No injection or drainage. ENT: Nose without bleeding, purulent drainage. Throat without erythema, tonsillar hypertrophy or exudate. Airway patent. NECK: Trachea midline. Non tender CARDIOVASCULAR: Regular rate and rhythm without murmurs, gallops, or rubs. RESPIRATORY: Clear to auscultation. Breath sounds equal bilaterally. No wheezes, rales, or rhonchi. GASTROINTESTINAL: Abdomen soft, non-tender, nondistended. Suprapubic catheter in place, site without tenderness or drainage or bleeding. No wincing on palpation. Collection bag without blood or clot or purulent fluid. EXTREMITIES: No edema or joint tenderness. BACK: Nontender without deformity or crepitance. No flank tenderness. Bilateral low lumbar region nephrostomy tube sites, skin sites and sutures seemed to look intact, no drainage around the sites onto dressings. Collection bags from right and left nephrostomy tubes without blood or clot or gross purulence. NEURO: AOx3. Motor functions grossly nonfocal SKIN: No rash or erythema of visible areas Initial Vital Signs Initial Vital Signs: Vital Signs Temperature 99.1 F 08/30/24 15:26 Pulse Rate 105 H 08/30/24 15:26 Respiratory Rate 18 08/30/24 15:26 Blood Pressure 116/71 08/30/24 15:26 Pulse Oximetry 97 08/30/24 15:26 Oxygen Delivery Method Room Air 08/30/24 15:26 Course Orders Ordered: ED Orders 08/30/24 15:38 Consult to ESTHETICIAN AND MANAGER MEDICAL SPA - Vehicle Maintenance Technician Stat XR chest 1V Stat EKG-12 Lead Stat RT Consult Eval and Treat NOW 08/30/24 16:05 Complete Blood Count AUTO DIFF Stat Comprehensive Metabolic Panel Stat Lactate (Lactic Acid) Stat Lipase Stat PTT Partial Thromboplastin Jayant Stat Procalcitonin Stat Prothrombin Time INR Stat 08/30/24 16:10 Blood Culture Stat 08/30/24 18:24 MR head/brain wo con Stat Ondansetron HCl (Ondansetron 4 Mg/2 Ml Inj) 4 mg IV NOW PRN PRN Reason: Nausea And Vomiting Ondansetron HCl (Ondansetron 4 Mg Odt) 4 mg SL NOW PRN PRN Reason: Nausea And Vomiting Discontinued Medications Sodium Chloride (Normal Saline 0.9%) 1,000 mls @ 1,000 mls/hr IV BOLUS ONE Stop: 08/30/24 16:36 Vital Signs Vital signs: Vital Signs - 8 hr 08/30/24 15:26 08/30/24 16:05 08/30/24 16:30 Temperature 99.1 F Pulse Rate 105 H 92 H Respiratory Rate 18 25 H Blood Pressure 116/71 125/82 Pulse Oximetry 97 97 Oxygen Delivery Method Room Air 08/30/24 16:30 08/30/24 17:00 08/30/24 17:00 Temperature Pulse Rate 86 84 Respiratory Rate 24 24 Blood Pressure 131/74 Pulse Oximetry 96 98 Oxygen Delivery Method 08/30/24 17:30 08/30/24 17:30 08/30/24 18:00 Temperature Pulse Rate 86 86 Respiratory Rate 25 H 25 H Blood Pressure 128/75 Pulse Oximetry 98 98 Oxygen Delivery Method 08/30/24 18:00 Temperature Pulse Rate Respiratory Rate Blood Pressure 130/76 Pulse Oximetry Oxygen Delivery Method MDM - Seizure Differential Diagnosis Differential diagnosis: Likely other (Seizure, mass, stroke, intracranial hemorrhage) Lab Data 08/30/24 16:05 08/30/24 16:05 Labs: Lab Results 08/30/24 Range/Units 16:05 WBC 15.8 H (4.5-11.0) X10^3/uL RBC 3.68 L (4.5-5.9) X10^6/uL Hgb 10.0 L (13.5-17.5) g/dL Hct 31.1 L (41-53) % MCV 84.6 (80-100) fL MCH 27.3 (26-34) PG MCHC 32.3 (30-36) % RDW 22.6 H (11.6-14.8) % Plt Count 390 (150-400) X10^3/uL Neut % (Auto) 88.6 H (50-75) % Lymph % (Auto) 6.7 L (25-40) % [place] % (Auto) 4.2 (3-14) % Eos % (Auto) 0.2 L (2-4) % Baso % (Auto) 0.3 (0-2) % Neut # (Auto) 04701 H (5164-0397) /uL Lymph # (Auto) 1100 (0872-8761) /uL [place] # (Auto) 700 (0-900) /uL Eos # (Auto) 0 (0-450) /uL Baso # (Auto) 0 (0-100) /uL RBC Morphology See below Hypochromasia 1+ H Anisocytosis 1+ H PT 11.3 (9.4-12.5) SECONDS INR 1.0 (0.9-1.3) APTT 28 (25.1-36.5) SECONDS Sodium 136 L (137-145) mmol/L Potassium 3.3 L (3.4-5.1) mmol/L Chloride 105 (98-107) mmol/L Carbon Dioxide 24 (22-32) mmol/L BUN 12 (9-20) mg/dL Creatinine 1.01 (0.66-1.25) mg/dL Estimated GFR > 60 (>60) mL/min BUN/Creatinine Ratio 11.9 (6-22) Glucose 103 (80-110) mg/dL Lactate 0.9 (0.7-2.1) mmol/L Calcium 8.5 (8.4-10.2) mg/dL Total Bilirubin 0.5 (0.2-1.3) mg/dL AST 24 (17-59) IU/L ALT 13 (<50) IU/L Alkaline Phosphatase 80 (38-126) U/L Total Protein 5.7 L (6.3-8.2) g/dL Albumin 3.1 L (3.5-5.0) g/dL Globulin 2.6 (1.7-4.1) g/dL Albumin/Globulin Ratio 1.2 (1.0-2.8) Lipase 66 D (23-300) U/L Procalcitonin 0.124 (<0.5) ng/mL Imaging Data MRI brain: Radiologist's Impression: [address] [address] Magnetic Resonance Report Signed Patient: Ramirez Foster MR#: [id number] : 1945 Acct:[id number] Age/Sex: 78 / M Date of Service: 08/30/24 Loc: ED Accession Number: [id number] Procedure: MR head/brain wo con Ordering Provider: Todd Jerome MD PROCEDURE: MR HEAD/BRAIN WO CON INDICATIONS: sz, CT head yest, fam wants MRI BRain new seizure TECHNIQUE: Non-contrast axial T1 spin echo, axial T2 fast spin echo, sagittal and axial FLAIR, coronal T2 fast spin echo, axial gradient echo, axial diffusion and ADC through the brain. COMPARISON: CT head noncontrast 08/29/2024. FINDINGS: Image quality: Diagnostic. CSF spaces: Ventricles appear symmetric in size and shape. Basal cisterns are patent. No extra-axial fluid collections. Brain: Redemonstration of left frontal encephalomalacia. No intracranial bleeds or mass effects. There is cerebral volume loss for age. There are periventricular and deep white matter chronic small vessel ischemic changes. Brainstem appears normal. Diffusion-weighted images show no acute infarct. No chronic ischemic insults. Normal intravascular flow voids are present. Skull and face: Calvarial bone marrow is normal in signal. Orbits are normal. Redemonstration of posttraumatic changes to the inferior left frontal bone. Sinuses: Sinuses and mastoids are clear. IMPRESSION: No acute intracranial abnormality. Stable changes to the anterior left inferior frontal lobe. [facility] Narrative Medical decision making narrative: 78-year-old male with a history of multiple cancers undergoing palliative chemotherapy with bilateral nephrostomy tubes and suprapubic catheter presenting for MRI. Patient was seen here yesterday for seizure activity. Patient has not had any seizure since, was instructed to follow up with their palliative care team, according to the the palliative care team at [facility] requested they return to the emergency room to obtain an MRI. Patient had MRI that did not show any acute findings, patient did have repeat lab work, patient has leukocytosis improving from 18.5 to 15.8, he was discharged home with Bactrim for pyelonephritis, the remainder of his lab work remained stable. This was in form to the patient and the , they understand and agree with being discharged home and follow up with the palliative care team Discharge Plan Departure Patient Disposition: Home Clinical Impression: Normal exam Prescriptions: No Action sulfamethoxazole-trimethoprim [Bactrim DS] 800-160 mg tablet 1 tab PO BID 10 Days Qty: 20 0RF oxycodone 5 mg capsule 5 mg PO TID PRN (Reason: pain) Qty: 10 0RF oxycodone 5 mg tablet 5 mg PO Q6H PRN (Reason: pain) Qty: 10 0RF ciprofloxacin HCl 500 mg tablet 500 mg PO Q12H Qty: 20 0RF hydroxyzine pamoate 25 mg capsule 25 mg PO Q6H PRN (Reason: anxiety) paroxetine HCl 20 mg tablet 40 mg PO ONCE PM amlodipine 10 mg tablet 10 mg PO DAILY Referrals: Diego Green MD [Primary Care Provider] - Stand Alone Forms: Patient Portal/API/Survey
== END 2024-08-30 21:26 | disposition home or self-care (01) ==
PROVIDERS: Emergency Medicine; Emergency Provider Student in an Organized Health Care Education/Training Program; PCP Internal Medicine
DX: R56.9 Unspecified convulsions (principal); Z85.110 Personal history of malignant carcinoid tumor of bronchus and lung; Z85.46 Personal history of malignant neoplasm of prostate; Z85.51 Personal history of malignant neoplasm of bladder
CPT/HCPCS: 36415; 70551; 71045; 80053; 83605; 83690; 84145; 85025; 85610; 85730; 87040; 93005

== ENCOUNTER 2024-08-30 22:30 | Emergency (ER) | payer MEDICARE, SELFPAY ==
--- NOTE | 2024-08-30 22:39 | EKG_ITS ---
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
[2024-08-30 22:41] VITALS: BP 102/65; PULSE 102; RESP 12; O2SAT 98
[2024-08-30 22:54] LABS: Add Manual Diff / Slide Review NO; Basophils Absolute Auto 100 /uL (0-100); Basophils Percent Auto 0.4 % (0-2); Eosinophils Absolute Auto 0 /uL (0-450); Eosinophils Percent Auto 0.2 % (2-4); Hematocrit 36.2 % (41-53); Hemoglobin 11.4 g/dL (13.5-17.5); Lymphocytes Absolute Auto 7400 /uL (1100-4500); Lymphocytes Percent Auto 34.5 % (25-40); Mean Corpuscular HGB Conc 31.6 % (30-36); Mean Corpuscular Hemoglobin 27.1 PG (26-34); Mean Corpuscular Volume 85.9 fL (80-100); Monocytes Absolute Auto 1400 /uL (0-900); Monocytes Percent Auto 6.3 % (3-14); Neutrophils Absolute Auto 12500 /uL (1500-7000); Neutrophils Percent Auto 58.6 % (50-75); Platelet Count 503 X10^3/uL (150-400); Red Blood Cell Count 4.22 X10^6/uL (4.5-5.9); Red Cell Distribution Width 22.8 % (11.6-14.8); White Blood Cell Count 21.4 X10^3/uL (4.5-11.0)
[2024-08-30 22:56] LABS: Prothrombin Time 10.9 SECONDS (9.4-12.5)
[2024-08-30 22:59] LABS: PTT Partial Thromboplastin Tim 27 SECONDS (25.1-36.5)
[2024-08-30 23:01] LABS: Alanine Aminotransferase 28 IU/L (<50); Albumin 3.7 g/dL (3.5-5.0); Albumin Globulin Ratio 1.2 (1.0-2.8); Alkaline Phosphatase 91 U/L (38-126); Aspartate Aminotransferase 36 IU/L (17-59); BUN Creatinine Ratio 10.7 (6-22); Bilirubin Total 0.5 mg/dL (0.2-1.3); Blood Urea Nitrogen 12 mg/dL (9-20); Calcium 9.1 mg/dL (8.4-10.2); Carbon Dioxide 16 mmol/L (22-32); Chloride 103 mmol/L (98-107); Estimated Glomerular Filt Rate > 60 mL/min (>60); Glucose 119 mg/dL (80-110); HEMOLYSIS 19 (0-50); Potassium 3.4 mmol/L (3.4-5.1); Sodium 138 mmol/L (137-145); Total Protein 6.7 g/dL (6.3-8.2)
[2024-08-30] MEDS: levETIRAcetam 1,000 MG in SODIUM CHLORIDE 0.9% 100 ML 440 MG IV (23:09)
[2024-08-30 23:13] LABS: Lactate (Lactic Acid) 8.9 mmol/L (0.7-2.1)
[2024-08-30 23:18] LABS: Anisocytosis 2+
[2024-08-30 23:19] LABS: Ovalocytes 1+; Schistocytes 1+
[2024-08-30] MEDS: SODIUM CHLORIDE 0.9% 1,000 ML 1000 ML IV (23:34)
[2024-08-31] VITALS (47 sets, daily range): BP systolic 126–169; BP diastolic 67–88; PULSE 85–97; RESP 14–78; O2SAT 96–100
[2024-08-31 00:21] LABS: Reflexed Lactate in 2 Hours Y
--- NOTE | 2024-08-31 00:55 | PC.NURSE ---
spoke with on phone, explained we were waiting on lab results and pt was presently receiving anti-seizure medication, requested we call her when the decision was made to admit or d/c as she wanted to rest for awhile, told we would call as soon as we knew something
--- NOTE | 2024-08-31 01:15 | PC.NURSE ---
called again, explained to I spoke with and that depending on the repeat lab results the pt would probably be ready to be dc in about 1.5 hr, stated she hurt her back getting out of the car earlier and to please call her when the pt was ready to be d/c. attempted to explain to that pt would be ready in about 1.5 hrs. repeated to please call her when pt was ready for dc
--- NOTE | 2024-08-31 01:40 | ED_ITS ---
HPI - Seizure General Chief Complaint: Seizure Stated Complaint: seizure Time Seen by Provider: 08/30/24 22:38 Source: EMS Mode of arrival: EMS Limitations: altered mental status History of Present Illness HPI Narrative: 78-year-old male with a past medical history of lung prostate and bladder cancer on palliative chemotherapy with Mary huber presents to the emergency department from home via EMS for seizure. According to the patient after being discharged from here patient had another witnessed seizure not lasting more than 5 minutes, EMS did provide 5 mg of IM Versed therefore patient is sleeping. However does respond to painful stimuli. Patient was just seen here and discharged for an MRI given the request for this by their palliative care team. Patient had not had a seizure prior to this for over 24 hours. Related Data Home Medications Medication Instructions Recorded Confirmed amlodipine 10 mg tablet 10 mg PO DAILY 01/12/24 01/12/24 hydroxyzine pamoate 25 mg capsule 25 mg PO Q6H PRN anxiety 01/12/24 01/12/24 paroxetine HCl 20 mg tablet 40 mg PO ONCE PM 01/12/24 01/12/24 Previous Rx's Medication Instructions Recorded oxycodone 5 mg capsule 5 mg PO TID PRN pain #10 caps 06/26/23 oxycodone 5 mg tablet 5 mg PO Q6H PRN pain #10 tabs 09/01/23 ciprofloxacin HCl 500 mg tablet 500 mg PO Q12H #20 tabs 11/16/23 sulfamethoxazole 800 1 tab PO BID 10 days #20 tabs 08/29/24 mg-trimethoprim 160 mg tablet (Bactrim DS) levetiracetam 500 mg tablet 500 mg PO Q12H 1 month #60 tabs 08/31/24 (Keppra) Allergies Allergy/AdvReac Type Severity Reaction Status Date / Time codeine AdvReac Unknown Gastrointestinal Verified 01/29/24 19:05 Upset aspirin AdvReac Gastrointestinal Verified 01/29/24 19:05 Upset Review of Systems Review of Systems ROS Unobtainable: Unobtainable due to mental status/LOC and Other Patient History Social History household members: spouse tobacco type: cigarettes alcohol intake frequency: other Exam Narrative Exam Narrative: GENERAL: Well-developed patient, in mild distress. HEAD: Atraumatic. Normocephalic. EYES: Pupils equal round and reactive. Extraocular motions intact. No scleral icterus. No injection or drainage. ENT: Nose without bleeding, purulent drainage. Throat without erythema, tonsillar hypertrophy or exudate. Airway patent. NECK: Trachea midline. Non tender CARDIOVASCULAR: Regular rate and rhythm without murmurs, gallops, or rubs. RESPIRATORY: Clear to auscultation. Breath sounds equal bilaterally. No wheezes, rales, or rhonchi. GASTROINTESTINAL: Abdomen soft, non-tender, nondistended. Suprapubic catheter in place, site without tenderness or drainage or bleeding. No wincing on palpation. Collection bag without blood or clot or purulent fluid. EXTREMITIES: No edema or joint tenderness. BACK: Nontender without deformity or crepitance. No flank tenderness. Bilateral low lumbar region nephrostomy tube sites, skin sites and sutures seemed to look intact, no drainage around the sites onto dressings. Collection bags from right and left nephrostomy tubes without blood or clot or gross purulence. NEURO: Patient sleeping but responding to painful stimuli SKIN: No rash or erythema of visible areas Initial Vital Signs Initial Vital Signs: Vital Signs Pulse Rate 102 H 08/30/24 22:41 Respiratory Rate 12 08/30/24 22:41 Blood Pressure 102/65 08/30/24 22:41 Pulse Oximetry 98 08/30/24 22:41 Oxygen Delivery Method Room Air 08/30/24 22:41 Course Orders Ordered: ED Orders 08/30/24 22:37 Complete Blood Count AUTO DIFF Stat Comprehensive Metabolic Panel Stat Lactate (Lactic Acid) Stat PTT Partial Thromboplastin Jayant Stat Prothrombin Time INR Stat 08/30/24 22:39 EKG-12 Lead Stat Discontinued Medications Levetiracetam 1,000 mg/ Sodium (Chloride) 110 mls @ 440 mls/hr IV NOW ONE Stop: 08/30/24 22:51 Last Infusion: 08/30/24 23:35 Dose: Infused Documented By: Admin: 08/30/24 23:09 Dose: 440 mls/hr Documented By: ALICJA Sodium Chloride (Normal Saline 0.9%) 1,000 mls @ 1,000 mls/hr IV BOLUS ONE Stop: 08/31/24 00:14 Last Infusion: 08/31/24 01:29 Dose: Infused Documented By: Admin: 08/30/24 23:34 Dose: 1,000 mls/hr Documented By: AKSHAT Ceftriaxone Sodium 2,000 mg/ (Sodium Chloride) 100 mls @ 200 mls/hr IV NOW ONE Stop: 08/31/24 01:44 Last Admin: 08/31/24 01:57 Dose: Not Given Ceftriaxone Sodium 2,000 mg/ (Sodium Chloride) 100 mls @ 200 mls/hr IV NOW ONE Stop: 08/31/24 01:56 Vital Signs Vital signs: Vital Signs - 8 hr 08/30/24 22:41 08/31/24 00:53 08/31/24 01:00 Pulse Rate 102 H 85 87 Respiratory Rate 12 14 15 Blood Pressure 102/65 Pulse Oximetry 98 100 100 Oxygen Delivery Method Room Air 08/31/24 01:00 08/31/24 01:10 08/31/24 01:10 Pulse Rate 87 Respiratory Rate 32 H Blood Pressure 163/84 H 156/76 H Pulse Oximetry 100 Oxygen Delivery Method 08/31/24 01:20 08/31/24 01:20 08/31/24 01:30 Pulse Rate 87 87 Respiratory Rate 17 15 Blood Pressure 156/84 H Pulse Oximetry 100 100 Oxygen Delivery Method 08/31/24 01:30 08/31/24 01:40 08/31/24 01:40 Pulse Rate 91 H Respiratory Rate 16 Blood Pressure 154/78 H 153/82 H Pulse Oximetry 100 Oxygen Delivery Method MDM - Seizure Lab Data 08/30/24 22:37 08/30/24 22:37 Labs: Lab Results 08/30/24 08/31/24 Range/Units 22:37 01:25 WBC 21.4 H (4.5-11.0) X10^3/uL RBC 4.22 L (4.5-5.9) X10^6/uL Hgb 11.4 L (13.5-17.5) g/dL Hct 36.2 L (41-53) % MCV 85.9 (80-100) fL MCH 27.1 (26-34) PG MCHC 31.6 (30-36) % RDW 22.8 H (11.6-14.8) % Plt Count 503 H (150-400) X10^3/uL Neut % (Auto) 58.6 D (50-75) % Lymph % (Auto) 34.5 D (25-40) % [place] % (Auto) 6.3 (3-14) % Eos % (Auto) 0.2 L (2-4) % Baso % (Auto) 0.4 (0-2) % Neut # (Auto) 33642 H (0089-0284) /uL Lymph # (Auto) 7400 H (1999-0801) /uL [place] # (Auto) 1400 H (0-900) /uL Eos # (Auto) 0 (0-450) /uL Baso # (Auto) 100 (0-100) /uL RBC Morphology See below Anisocytosis 2+ H Ovalocytes 1+ H Schistocytes 1+ H PT 10.9 (9.4-12.5) SECONDS INR 1.0 (0.9-1.3) APTT 27 (25.1-36.5) SECONDS Sodium 138 (137-145) mmol/L Potassium 3.4 (3.4-5.1) mmol/L Chloride 103 (98-107) mmol/L Carbon Dioxide 16 L (22-32) mmol/L BUN 12 (9-20) mg/dL Creatinine 1.12 (0.66-1.25) mg/dL Estimated GFR > 60 (>60) mL/min BUN/Creatinine Ratio 10.7 (6-22) Glucose 119 H (80-110) mg/dL Lactate 8.9 H* 1.3 (0.7-2.1) mmol/L Calcium 9.1 (8.4-10.2) mg/dL Total Bilirubin 0.5 (0.2-1.3) mg/dL AST 36 (17-59) IU/L ALT 28 (<50) IU/L Alkaline Phosphatase 91 (38-126) U/L Total Protein 6.7 (6.3-8.2) g/dL Albumin 3.7 (3.5-5.0) g/dL Globulin 3.0 (1.7-4.1) g/dL Albumin/Globulin Ratio 1.2 (1.0-2.8) ECG Data Interpretation: EKG interpreted ED physician sinus 94 beats per minute QTC [address] changes occasional PVC noted no STEMI MDM Narrative Medical decision making narrative: 78-year-old male past medical history of prostate bladder and lung cancer on palliative chemotherapy follows with Mary huber presenting for seizure. Patient was previously seen here and discharged home after obtaining a normal MRI given family requesting this after discussion with their palliative care team. Patient had not had a seizure for 48 hours, however states that she had seen the patient with seizure-like activity called 911 and was brought here, patient was given 5 mg IM Versed therefore upon initial evaluation patient sleeping only responding to painful stimuli, according to she has not started giving the patient his antibiotics, patient was seen by me previously and had lab work imaging and was diagnosed with acute pyelonephritis. Given patient with elevated lactate 8.9 patient most likely did have a seizure, repeat lactate showing 1.3, patient was given Keppra here, given patient with 2nd seizure in the past week we will start patient on 500 mg Keppra b.i.d. we will also give dose of Rocephin here for his acute pyelonephritis. Patient did have an increase in his WBCs 18.5-21.4, patient afebrile nontoxic, most likely elevated secondary to the fact that patient has not been taking his antibiotics as well as recent seizure. 0145: Patient re-evaluated he is now awake alert oriented moving all 4 extremities spontaneously back to his baseline. 0210: Patient deal at baseline moving all 4 extremities, not complaining of any new symptoms, called to inform her that we will be starting Keppra 500 mg b.i.d. and that she needs to start his oral antibiotics for his pyelonephritis immediately. Was also instructed to have patient follow up with palliative care team at [facility] to decide additional treatments given his new seizures as well as possibly transitioning to hospice care. She verbalized understanding of this was given strict return precautions and agrees to being discharged home with outpatient follow up Discharge Plan Departure Patient Disposition: Home Clinical Impression: Breakthrough seizure Instructions: DI for Seizure Disorder -- Adult Activity Restrictions/Additional Instructions: Please follow up with your palliative care team Please read the discharge instructions sheet carefully and bring all papers to all doctor follow-up visits, as it may contain information that your doctor may want to see. Disease processes change and evolve, if your symptoms worsen or if you develop any new symptoms that are concerning to you please return for evaluation. Your evaluation today does not show any evidence of any life- threatening/serious illnesses requiring admission to the hospital or surgery. Please follow-up with your doctor for re-evaluation in approximately 1 day. Seek immediate medical attention for any worrisome symptoms. *If you do not have a primary care provider please contact the [facility] Resource line at [phone]. They will ask some questions about your medical history and help get you set up with a doctor in the community. Prescriptions: New levetiracetam [Keppra] 500 mg tablet 500 mg PO Q12H 30 Days Qty: 60 0RF No Action sulfamethoxazole-trimethoprim [Bactrim DS] 800-160 mg tablet 1 tab PO BID 10 Days Qty: 20 0RF oxycodone 5 mg capsule 5 mg PO TID PRN (Reason: pain) Qty: 10 0RF oxycodone 5 mg tablet 5 mg PO Q6H PRN (Reason: pain) Qty: 10 0RF ciprofloxacin HCl 500 mg tablet 500 mg PO Q12H Qty: 20 0RF hydroxyzine pamoate 25 mg capsule 25 mg PO Q6H PRN (Reason: anxiety) paroxetine HCl 20 mg tablet 40 mg PO ONCE PM amlodipine 10 mg tablet 10 mg PO DAILY Referrals: Diego Green MD [Primary Care Provider] - Stand Alone Forms: Patient Portal/API/Survey
[2024-08-31 01:53] LABS: Lactate 2HR (Lactic Acid Rflx) 1.3 mmol/L (0.7-2.1)
[2024-08-31] MEDS: cefTRIAXone 2,000 MG in SODIUM CHLORIDE 0.9% 100 ML 200 MG IV (02:18)
--- NOTE | 2024-08-31 02:24 | PC.NURSE ---
attempted to call to tell her the pt was being dc. no answer. was only able to reach voice mail, left message
--- NOTE | 2024-08-31 02:37 | PC.NURSE ---
attempted to call again, only reached voice mail left message. informed charge nurse
--- NOTE | 2024-08-31 02:47 | PC.NURSE ---
Called Rosaura left message to call back.
--- NOTE | 2024-08-31 03:02 | PC.NURSE ---
Called Rosaura (spouse) at [phone] left message that pt is ready for discharge. Please call ER back at [phone]
--- NOTE | 2024-08-31 05:29 | PC.NURSE ---
Attempted to make contact again with pt Rosaura at [phone]. Did not leave message since multiple messages have already been left on cell.
--- NOTE | 2024-08-31 06:16 | PC.NURSE ---
Attempted to contact Rosaura at [phone]. No answer, did not leave message due to messages already left.
--- NOTE | 2024-08-31 07:42 | PC.NURSE ---
Made contact with Rosaura. is on the way to pick pt up.
--- NOTE | 2024-08-31 17:15 | CM.SWNOTE ---
ED HVAC R INSTRUCTOR Follow Up Note HVAC R INSTRUCTOR receives follow up consult from RN due to concern for inquiry of further support at home for patient as patient's spouse is primary marketing area manager. HVAC R INSTRUCTOR calls spouse and leaves VM requesting return call. Marysol Stephens, SCRUB WHEEL OPERATOR
== END 2024-08-31 09:04 | disposition home or self-care (01) ==
PROVIDERS: Emergency Provider Student in an Organized Health Care Education/Training Program; PCP Internal Medicine
DX: G40.919 Epilepsy, unspecified, intractable, without status epilepticus (principal); Z85.118 Personal history of other malignant neoplasm of bronchus and lung; Z85.46 Personal history of malignant neoplasm of prostate; Z85.51 Personal history of malignant neoplasm of bladder
CPT/HCPCS: 36415; 70551; 71045; 80053; 83605; 83690; 84145; 85025; 85610; 85730; 87040; 93005; 96365; 96367; 99283; 99284; J0696; J1953

== ENCOUNTER 2024-09-03 18:11 | Emergency (ER) | payer MEDICARE, SELFPAY ==
[2024-09-03] VITALS (14 sets, daily range): BP systolic 121–156; BP diastolic 66–81; PULSE 82–98; RESP 14–82; TEMP 36.8; O2SAT 96–98
--- NOTE | 2024-09-03 18:10 | PC.NURSE ---
Pt actively seizing. Dr Bailey notified. Verbal orders received for 1 mg IV Ativan.
[2024-09-03] MEDS: LORazepam 2 MG/ML INJ IV (18:21)
--- NOTE | 2024-09-03 18:35 | DI.RAD.S_ITS ---
PROCEDURE: XR CHEST 1V INDICATIONS: suspected sepsis TECHNIQUE: One view of the chest was acquired. COMPARISON: [facility], CR, XR CHEST 1V, 08/30/2024, 16:12. FINDINGS: Surgical changes and devices: None. Lungs and pleura: Lungs are clear. Emphysematous change. No pleural effusions or pneumothorax. Mediastinum: Mediastinal contours appear normal. Heart size is normal. Bones and chest wall: No suspicious bony lesions. Overlying soft tissues appear unremarkable. IMPRESSION: COPD. No acute pulmonary process. Dictated by: Abdirahman Calixto M.D. on 09/03/2024 at 19:24 Approved by: Abdirahman Calixto M.D. on 09/03/2024 at 19:25
--- NOTE | 2024-09-03 18:35 | EKG_ITS ---
[facility] [address] [place] [address] Test Date: 2024-09-03 Pat Name: Ramirez Foster Department: 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
--- NOTE | 2024-09-03 18:35 | DI.CT.S_ITS ---
PROCEDURE: CT HEAD/BRAIN WO CON INDICATIONS: seziures TECHNIQUE: Noncontrast 4.5 mm thick angled axial sections acquired from the foramen magnum to the vertex, with coronal and sagittal reformats. For radiation dose reduction, the following was used: automated exposure control, adjustment of mA and/or kV according to patient size. COMPARISON: [facility], MR, MR HEAD/BRAIN WO CON, 08/30/2024, 17:57. [facility], CT, CT HEAD/BRAIN WO CON, 08/29/2024, 15:10. FINDINGS: Image quality: Diagnostic. CSF spaces: Basal cisterns are patent. No extra-axial fluid collections. The ventricles are symmetric in size and shape. Brain: No intracranial bleeds or masses. There is cerebral volume loss for age, with resultant ventricular and sulcal prominence. There are periventricular and deep white matter chronic small vessel ischemic changes. Stable findings of posttraumatic encephalomalacia, anterior inferior left frontal lobe. There is intracranial internal carotid artery atherosclerosis. Skull and face: Calvarium and visualized facial bones appear intact, without suspicious lesions. Sinuses: Visualized sinuses and mastoids are clear. IMPRESSION: No acute intracranial pathology. Dictated by: Abdirahman Calixto M.D. on 09/03/2024 at 19:22 Approved by: Abdirahman Calixto M.D. on 09/03/2024 at 19:24
[2024-09-03] MEDS: SODIUM CHLORIDE 0.9% 1,000 ML 1000 ML IV (18:42)
[2024-09-03 18:46] LABS: Add Manual Diff / Slide Review NO; Basophils Absolute Auto 100 /uL (0-100); Basophils Percent Auto 0.5 % (0-2); Eosinophils Absolute Auto 0 /uL (0-450); Eosinophils Percent Auto 0.1 % (2-4); Hematocrit 35.4 % (41-53); Hemoglobin 11.4 g/dL (13.5-17.5); Lymphocytes Absolute Auto 2300 /uL (1100-4500); Lymphocytes Percent Auto 14.9 % (25-40); Mean Corpuscular HGB Conc 32.1 % (30-36); Mean Corpuscular Hemoglobin 27.3 PG (26-34); Mean Corpuscular Volume 84.9 fL (80-100); Monocytes Absolute Auto 900 /uL (0-900); Neutrophils Absolute Auto 11900 /uL (1500-7000); Neutrophils Percent Auto 78.5 % (50-75); Platelet Count 427 X10^3/uL (150-400); Red Blood Cell Count 4.17 X10^6/uL (4.5-5.9); White Blood Cell Count 15.1 X10^3/uL (4.5-11.0)
[2024-09-03] MEDS: levETIRAcetam 1,000 MG in SODIUM CHLORIDE 0.9% 100 ML 440 MG IV (18:46)
[2024-09-03 18:47] LABS: Prothrombin Time 11.4 SECONDS (9.4-12.5)
[2024-09-03 18:50] LABS: PTT Partial Thromboplastin Tim 28 SECONDS (25.1-36.5)
[2024-09-03 18:51] LABS: Lactate (Lactic Acid) 1.1 mmol/L (0.7-2.1)
[2024-09-03 19:06] LABS: Alanine Aminotransferase 13 IU/L (<50); Albumin 3.2 g/dL (3.5-5.0); Albumin Globulin Ratio 1.1 (1.0-2.8); Alkaline Phosphatase 88 U/L (38-126); Aspartate Aminotransferase 32 IU/L (17-59); BUN Creatinine Ratio 11.5 (6-22); Bilirubin Total 0.7 mg/dL (0.2-1.3); Blood Urea Nitrogen 13 mg/dL (9-20); Calcium 8.9 mg/dL (8.4-10.2); Carbon Dioxide 17 mmol/L (22-32); Chloride 104 mmol/L (98-107); Estimated Glomerular Filt Rate > 60 mL/min (>60); Globulin 2.8 g/dL (1.7-4.1); Glucose 102 mg/dL (80-110); Lipase 47 U/L (23-300); Sodium 134 mmol/L (137-145)
[2024-09-03 19:11] LABS: HEMOLYSIS 77 (0-50)
[2024-09-03 19:14] LABS: Potassium 3.7 mmol/L (3.4-5.1)
[2024-09-03 19:23] LABS: Procalcitonin 0.131 ng/mL (<0.5)
--- NOTE | 2024-09-03 21:03 | ED.SEIZURE ---
HPI - Seizure <Carla Bird, DO - Last Filed: 09/05/24 18:04> General Chief Complaint: Seizure Stated Complaint: Seizure Time Seen by Provider: 09/03/24 21:02 Source: patient and EMS Mode of arrival: EMS History of Present Illness HPI Narrative: Patient is a 78-year-old male presenting today for the 5th time this month with no seizure activity. He has a history of lung prostate and bladder cancer on palliative chemotherapy with [facility] presenting today with ongoing seizure. He was DNR DNI trying to get into hospice however according to the hospice states that they will not accept him if he was continuing to have seizures. She was unable to get Keppra in him last couple of days. reports that [facility] doctors want him down there to help figure out why he was having seizures. She suspects that he needs to be on hospice. Related Data Home Medications Medication Instructions Recorded Confirmed amlodipine 10 mg tablet 10 mg PO DAILY 01/12/24 01/12/24 hydroxyzine pamoate 25 mg capsule 25 mg PO Q6H PRN anxiety 01/12/24 01/12/24 paroxetine HCl 20 mg tablet 40 mg PO ONCE PM 01/12/24 01/12/24 Previous Rx's Medication Instructions Recorded oxycodone 5 mg capsule 5 mg PO TID PRN pain #10 caps 06/26/23 oxycodone 5 mg tablet 5 mg PO Q6H PRN pain #10 tabs 09/01/23 ciprofloxacin HCl 500 mg tablet 500 mg PO Q12H #20 tabs 11/16/23 sulfamethoxazole 800 1 tab PO BID 10 days #20 tabs 08/29/24 mg-trimethoprim 160 mg tablet (Bactrim DS) levetiracetam 500 mg tablet 500 mg PO Q12H 1 month #60 tabs 08/31/24 (Keppra) sulfamethoxazole 800 1 tab PO BID 10 days #20 tabs 08/31/24 mg-trimethoprim 160 mg tablet (Bactrim DS) fluconazole 100 mg tablet 100 mg PO DAILY #14 tabs 09/01/24 (Diflucan) Allergies Allergy/AdvReac Type Severity Reaction Status Date / Time codeine AdvReac Unknown Gastrointestinal Verified 01/29/24 19:05 Upset aspirin AdvReac Gastrointestinal Verified 01/29/24 19:05 Upset <Denisha Abreu, DO - Last Filed: 09/04/24 18:49> History of Present Illness HPI Narrative: Patient is a 78-year-old male presenting today for the 5th time this month with seizure activity. He has a history of lung prostate and bladder cancer on palliative chemotherapy with [facility] presenting today with ongoing seizure. He was DNR DNI trying to get into hospice however according to the hospice states that they will not accept him if he was continuing to have seizures. She was unable to get Keppra in him last couple of days. reports that [facility] doctors want him down there to help figure out why he was having seizures. She suspects that he needs to be on hospice. Patient History <Carla Bird DO - Last Filed: 09/05/24 18:04> Social History household members: spouse tobacco type: cigarettes alcohol intake frequency: other Exam <Carla Bird DO - Last Filed: 09/05/24 18:04> Initial Vital Signs Initial Vital Signs: Vital Signs Pulse Rate 98 H 09/03/24 17:50 Respiratory Rate 33 H 09/03/24 17:50 Pulse Oximetry 97 09/03/24 17:50 GENERAL: Cachectic chronically ill 78-year-old HEENT: Head atraumatic,EOMI, pupils reactive, face symmetric, dry mucous membranes CARDIOVASCULAR: Regular rate and rhythm without murmurs, rubs or gallops. RESPIRATORY: Breath sounds equal bilaterally, no wheezes rales or rhonchi. ABDOMEN: Soft, nontender. Normoactive bowel sounds all 4 quadrants. No guarding or rebound. EXTREMITIES: Normal range of motion, no clubbing or edema. Neurovascularly intact NEUROLOGICAL: Actively seizing tonic-clonic shaking SKIN: Warm, dry, no laceration, no petechiae, no rashes or lesions. <Denisha Abreu, DO - Last Filed: 09/04/24 18:49> Initial Vital Signs Initial Vital Signs: Vital Signs Pulse Rate 98 H 09/03/24 17:50 Respiratory Rate 33 H 09/03/24 17:50 Pulse Oximetry 97 09/03/24 17:50 <Ruddy Donaldson, DO - Last Filed: 09/05/24 12:20> Initial Vital Signs Initial Vital Signs: Vital Signs Pulse Rate 98 H 09/03/24 17:50 Respiratory Rate 33 H 09/03/24 17:50 Pulse Oximetry 97 09/03/24 17:50 Course <Carla Bird DO - Last Filed: 09/05/24 18:04> Orders Ordered: Discontinued Medications Sodium Chloride (Normal Saline 0.9%) 1,000 mls @ 1,000 mls/hr IV BOLUS ONE Stop: 09/03/24 19:34 Last Infusion: 09/03/24 20:30 Dose: Infused Documented By: Admin: 09/03/24 18:42 Dose: 1,000 mls/hr Documented By: Levetiracetam 1,000 mg/ Sodium (Chloride) 110 mls @ 440 mls/hr IV NOW ONE Stop: 09/03/24 18:41 Last Infusion: 09/03/24 19:12 Dose: Infused Documented By: Admin: 09/03/24 18:46 Dose: 440 mls/hr Documented By: PHILIP Levetiracetam 500 mg/ Sodium (Chloride) 105 mls @ 420 mls/hr IV Q12H [facility] Last Infusion: 09/05/24 08:07 Dose: Infused Documented By: Admin: 09/05/24 07:30 Dose: 420 mls/hr Documented By: Infusion: 09/04/24 20:45 Dose: Infused Documented By: Admin: 09/04/24 20:19 Dose: 420 mls/hr Documented By: Infusion: 09/04/24 08:17 Dose: Infused Documented By: Admin: 09/04/24 07:42 Dose: 420 mls/hr Documented By: PHILIP Sodium Chloride (Normal Saline 0.9%) 1,000 mls @ 125 mls/hr IV CONT LEE Last Infusion: 09/04/24 17:00 Dose: Infused Documented By: Admin: 09/04/24 08:09 Dose: 125 mls/hr Documented By: PHILIP Lorazepam (Lorazepam 2 Mg/Ml Inj) 2 mg IV NOW ONE Stop: 09/03/24 18:20 Last Admin: 09/03/24 18:21 Dose: 1 mg Documented By: PHILIP Metoprolol Tartrate (Metoprolol Tartrate 5 Mg/5 Ml Inj) 5 mg IV NOW ONE Stop: 09/03/24 23:04 Last Admin: 09/03/24 23:43 Dose: Not Given Documented By: RLC Ondansetron HCl (Ondansetron 4 Mg/2 Ml Inj) 4 mg IV NOW PRN PRN Reason: Nausea And Vomiting Ondansetron HCl (Ondansetron 4 Mg Odt) 4 mg SL NOW PRN PRN Reason: Nausea And Vomiting Vital Signs Vital signs: Vital Signs - 8 hr 09/05/24 04:30 09/05/24 05:00 09/05/24 05:00 Pulse Rate 92 H 87 Respiratory Rate 20 22 Blood Pressure 152/70 H Pulse Oximetry Oxygen Delivery Method 09/05/24 05:30 09/05/24 06:00 09/05/24 06:00 Pulse Rate 86 85 Respiratory Rate 21 23 Blood Pressure 136/69 Pulse Oximetry Oxygen Delivery Method 09/05/24 06:30 09/05/24 07:00 09/05/24 07:35 Pulse Rate 86 88 85 Respiratory Rate 22 21 Blood Pressure Pulse Oximetry 95 Oxygen Delivery Method 09/05/24 08:00 09/05/24 08:25 Pulse Rate 81 80 Respiratory Rate 36 H 16 Blood Pressure 130/70 Pulse Oximetry 97 97 Oxygen Delivery Method Room Air <Denisha Abreu, - Last Filed: 09/04/24 18:49> Orders Ordered: Discontinued Medications Sodium Chloride (Normal Saline 0.9%) 1,000 mls @ 1,000 mls/hr IV BOLUS ONE Stop: 09/03/24 19:34 Last Infusion: 09/03/24 20:30 Dose: Infused Documented By: Admin: 09/03/24 18:42 Dose: 1,000 mls/hr Documented By: Levetiracetam 1,000 mg/ Sodium (Chloride) 110 mls @ 440 mls/hr IV NOW ONE Stop: 09/03/24 18:41 Last Infusion: 09/03/24 19:12 Dose: Infused Documented By: Admin: 09/03/24 18:46 Dose: 440 mls/hr Documented By: PHILIP Levetiracetam 500 mg/ Sodium (Chloride) 105 mls @ 420 mls/hr IV Q12H [facility] Last Infusion: 09/05/24 08:07 Dose: Infused Documented By: Admin: 09/05/24 07:30 Dose: 420 mls/hr Documented By: Infusion: 09/04/24 20:45 Dose: Infused Documented By: Admin: 09/04/24 20:19 Dose: 420 mls/hr Documented By: Infusion: 09/04/24 08:17 Dose: Infused Documented By: Admin: 09/04/24 07:42 Dose: 420 mls/hr Documented By: PHILIP Sodium Chloride (Normal Saline 0.9%) 1,000 mls @ 125 mls/hr IV CONT LEE Last Infusion: 09/04/24 17:00 Dose: Infused Documented By: Admin: 09/04/24 08:09 Dose: 125 mls/hr Documented By: PHILIP Lorazepam (Lorazepam 2 Mg/Ml Inj) 2 mg IV NOW ONE Stop: 09/03/24 18:20 Last Admin: 09/03/24 18:21 Dose: 1 mg Documented By: PHILIP Metoprolol Tartrate (Metoprolol Tartrate 5 Mg/5 Ml Inj) 5 mg IV NOW ONE Stop: 09/03/24 23:04 Last Admin: 09/03/24 23:43 Dose: Not Given Documented By: MAGGIE Ondansetron HCl (Ondansetron 4 Mg/2 Ml Inj) 4 mg IV NOW PRN PRN Reason: Nausea And Vomiting Ondansetron HCl (Ondansetron 4 Mg Odt) 4 mg SL NOW PRN PRN Reason: Nausea And Vomiting Vital Signs Vital signs: Vital Signs - 8 hr 09/05/24 04:30 09/05/24 05:00 09/05/24 05:00 Pulse Rate 92 H 87 Respiratory Rate 20 22 Blood Pressure 152/70 H Pulse Oximetry Oxygen Delivery Method 09/05/24 05:30 09/05/24 06:00 09/05/24 06:00 Pulse Rate 86 85 Respiratory Rate 21 23 Blood Pressure 136/69 Pulse Oximetry Oxygen Delivery Method 09/05/24 06:30 09/05/24 07:00 09/05/24 07:35 Pulse Rate 86 88 85 Respiratory Rate 22 21 Blood Pressure Pulse Oximetry 95 Oxygen Delivery Method 09/05/24 08:00 09/05/24 08:25 Pulse Rate 81 80 Respiratory Rate 36 H 16 Blood Pressure 130/70 Pulse Oximetry 97 97 Oxygen Delivery Method Room Air <Ruddy Donaldson DO - Last Filed: 09/05/24 12:20> Orders Ordered: Discontinued Medications Sodium Chloride (Normal Saline 0.9%) 1,000 mls @ 1,000 mls/hr IV BOLUS ONE Stop: 09/03/24 19:34 Last Infusion: 09/03/24 20:30 Dose: Infused Documented By: Admin: 09/03/24 18:42 Dose: 1,000 mls/hr Documented By: Levetiracetam 1,000 mg/ Sodium (Chloride) 110 mls @ 440 mls/hr IV NOW ONE Stop: 09/03/24 18:41 Last Infusion: 09/03/24 19:12 Dose: Infused Documented By: Admin: 09/03/24 18:46 Dose: 440 mls/hr Documented By: PHILIP Levetiracetam 500 mg/ Sodium (Chloride) 105 mls @ 420 mls/hr IV Q12H [facility] Last Infusion: 09/05/24 08:07 Dose: Infused Documented By: Admin: 09/05/24 07:30 Dose: 420 mls/hr Documented By: Infusion: 09/04/24 20:45 Dose: Infused Documented By: Admin: 09/04/24 20:19 Dose: 420 mls/hr Documented By: Infusion: 09/04/24 08:17 Dose: Infused Documented By: Admin: 09/04/24 07:42 Dose: 420 mls/hr Documented By: PHILIP Sodium Chloride (Normal Saline 0.9%) 1,000 mls @ 125 mls/hr IV CONT LEE Last Infusion: 09/04/24 17:00 Dose: Infused Documented By: Admin: 09/04/24 08:09 Dose: 125 mls/hr Documented By: PHILIP Lorazepam (Lorazepam 2 Mg/Ml Inj) 2 mg IV NOW ONE Stop: 09/03/24 18:20 Last Admin: 09/03/24 18:21 Dose: 1 mg Documented By: PHILIP Metoprolol Tartrate (Metoprolol Tartrate 5 Mg/5 Ml Inj) 5 mg IV NOW ONE Stop: 09/03/24 23:04 Last Admin: 09/03/24 23:43 Dose: Not Given Documented By: MAGGIE Ondansetron HCl (Ondansetron 4 Mg/2 Ml Inj) 4 mg IV NOW PRN PRN Reason: Nausea And Vomiting Ondansetron HCl (Ondansetron 4 Mg Odt) 4 mg SL NOW PRN PRN Reason: Nausea And Vomiting Vital Signs Vital signs: Vital Signs - 8 hr 09/05/24 04:30 09/05/24 05:00 09/05/24 05:00 Pulse Rate 92 H 87 Respiratory Rate 20 22 Blood Pressure 152/70 H Pulse Oximetry Oxygen Delivery Method 09/05/24 05:30 09/05/24 06:00 09/05/24 06:00 Pulse Rate 86 85 Respiratory Rate 21 23 Blood Pressure 136/69 Pulse Oximetry Oxygen Delivery Method 09/05/24 06:30 09/05/24 07:00 09/05/24 07:35 Pulse Rate 86 88 85 Respiratory Rate 22 21 Blood Pressure Pulse Oximetry 95 Oxygen Delivery Method 09/05/24 08:00 09/05/24 08:25 Pulse Rate 81 80 Respiratory Rate 36 H 16 Blood Pressure 130/70 Pulse Oximetry 97 97 Oxygen Delivery Method Room Air MDM - Seizure <Carla Bird, DO - Last Filed: 09/05/24 18:04> Lab Data 09/03/24 17:56 09/03/24 17:56 Labs: Lab Results 09/03/24 Range/Units 17:56 WBC 15.1 H (4.5-11.0) X10^3/uL RBC 4.17 L (4.5-5.9) X10^6/uL Hgb 11.4 L (13.5-17.5) g/dL Hct 35.4 L (41-53) % MCV 84.9 (80-100) fL MCH 27.3 (26-34) PG MCHC 32.1 (30-36) % RDW 22.0 H (11.6-14.8) % Plt Count 427 H (150-400) X10^3/uL Neut % (Auto) 78.5 H (50-75) % Lymph % (Auto) 14.9 L (25-40) % [place] % (Auto) 6.0 (3-14) % Eos % (Auto) 0.1 L (2-4) % Baso % (Auto) 0.5 (0-2) % Neut # (Auto) 34732 H (1984-5454) /uL Lymph # (Auto) 2300 (0015-9462) /uL [place] # (Auto) 900 (0-900) /uL Eos # (Auto) 0 (0-450) /uL Baso # (Auto) 100 (0-100) /uL Nucleated RBCs Cancelled Hypersegmented Neuts Cancelled Hypogranular Neuts Cancelled Reactive Lymphocytes Cancelled Smudge Cells Cancelled Other Cell Type Cancelled Toxic Granulation Cancelled Toxic Vacuolation Cancelled Dohle Bodies Cancelled Jim Rods Cancelled WBC Morphology Comment Cancelled Platelet Estimate Cancelled Clumped Platelets Cancelled Plt Morphology Comment Cancelled RBC Morphology Cancelled Dimorphic RBCs Cancelled Polychromasia Cancelled Hypochromasia Cancelled Poikilocytosis Cancelled Basophilic Stippling Cancelled Anisocytosis Cancelled Microcytosis Cancelled Macrocytosis Cancelled Spherocytes Cancelled Pappenheimer Bodies Cancelled Sickle Cells Cancelled Target Cells Cancelled Tear Drop Cells Cancelled Ovalocytes Cancelled Stomatocytes Cancelled Helmet Cells Cancelled Maciel-[place]le[place] Bodies Cancelled Dalton Rings Cancelled [place] Cells Cancelled Acanthocytes (Spur) Cancelled Rouleaux Cancelled Schistocytes Cancelled PT 11.4 (9.4-12.5) SECONDS INR 1.0 (0.9-1.3) APTT 28 (25.1-36.5) SECONDS Sodium 134 L (137-145) mmol/L Potassium 3.7 (3.4-5.1) mmol/L Chloride 104 (98-107) mmol/L Carbon Dioxide 17 L (22-32) mmol/L BUN 13 (9-20) mg/dL Creatinine 1.13 (0.66-1.25) mg/dL Estimated GFR > 60 (>60) mL/min BUN/Creatinine Ratio 11.5 (6-22) Glucose 102 (80-110) mg/dL Lactate 1.1 (0.7-2.1) mmol/L Calcium 8.9 (8.4-10.2) mg/dL Total Bilirubin 0.7 (0.2-1.3) mg/dL AST 32 (17-59) IU/L ALT 13 (<50) IU/L Alkaline Phosphatase 88 (38-126) U/L Total Protein 6.0 L (6.3-8.2) g/dL Albumin 3.2 L (3.5-5.0) g/dL Globulin 2.8 (1.7-4.1) g/dL Albumin/Globulin Ratio 1.1 (1.0-2.8) Lipase 47 (23-300) U/L Procalcitonin 0.131 (<0.5) ng/mL Point of Care Testing Glucose POC 105 Urine Dip Bedside Urine Glucose Negative Bedside Urine Bilirubin - Negative Bedside Urine Ketone +/- 5 Urine Specific [place] 1.025 Bedside Urine Occult Blood + Bedside Urine pH 6.0 Bedside Urine Protein + 30 Bedside Urine Urobilinogen - Negative Bedside Urine Nitrite - Negative Bedside Urine Leukocytes + [address] scan - head: Radiologist's Impression: PROCEDURE: CT HEAD/BRAIN WO CON INDICATIONS: seziures TECHNIQUE: Noncontrast 4.5 mm thick angled axial sections acquired from the foramen magnum to the vertex, with coronal and sagittal reformats. For radiation dose reduction, the following was used: automated exposure control, adjustment of mA and/or kV according to patient size. COMPARISON: [facility], MR, MR HEAD/BRAIN WO CON, 08/30/2024, 17:57. [facility], CT, CT HEAD/BRAIN WO CON, 08/29/2024, 15:10. FINDINGS: Image quality: Diagnostic. CSF spaces: Basal cisterns are patent. No extra-axial fluid collections. The ventricles are symmetric in size and shape. Brain: No intracranial bleeds or masses. There is cerebral volume loss for age, with resultant ventricular and sulcal prominence. There are periventricular and deep white matter chronic small vessel ischemic changes. Stable findings of posttraumatic encephalomalacia, anterior inferior left frontal lobe. There is intracranial internal carotid artery atherosclerosis. Skull and face: Calvarium and visualized facial bones appear intact, without suspicious lesions. Sinuses: Visualized sinuses and mastoids are clear. IMPRESSION: No acute intracranial pathology. Dictated by: Abdirahman Calixto M.D. on 09/03/2024 at 19:22 Chest x-ray: Radiologist's Impression: PROCEDURE: XR CHEST 1V INDICATIONS: suspected sepsis TECHNIQUE: One view of the chest was acquired. COMPARISON: [facility], CR, XR CHEST 1V, 08/30/2024, 16:12. FINDINGS: Surgical changes and devices: None. Lungs and pleura: Lungs are clear. Emphysematous change. No pleural effusions or pneumothorax. Mediastinum: Mediastinal contours appear normal. Heart size is normal. Bones and chest wall: No suspicious bony lesions. Overlying soft tissues appear unremarkable. IMPRESSION: COPD. No acute pulmonary process. Dictated by: Abdirahman Calixto M.D. on 09/03/2024 at 19:24 ECG Data Attestation: I personally reviewed and interpreted this ECG as follows: Prior ECG tracings: available for review Interpretation: Sinus rhythm rate 88 TN interval 136 QRS 94 QTC 559 artifact noted no acute ST changes similar to previous EKGs MDM Narrative Medical decision making narrative: Patient is 78-year-old male chronically ill multiple cancers presenting today with ongoing seizure. Not able to have any p.o. meds contributing to ongoing seizure. He has not been evaluated for seizures. He has had MRI CT and significant workup for this this month. Again no mass or cause is found. Blood work has been reviewed Mild leukocytosis of 15 which is stable no anemia Electrolytes within normal limits carbon dioxide 17 consistent with seizure glucose 102 lactate 1.[address] does not show any intracranial process Chest x-ray no acute process At this time patient would benefit from admission for seizure control hospice and comfort care. Attempted to call left her a message also attempted to call daughter but no answer did call back explained the she ultimately once patient on hospice however concerned because might not be able to get him on hospice due to ongoing seizures. States the [facility] doctors would like him down at [facility] and she would like him transferred. Unfortunately [facility], does not have any PCU or ICU beds 09/04/[address] Abreu: Patient signed out to myself patient seen and evaluated by myself. He was alert but appears to be unable to swallow any sort of orals. We will continue with J[facility] Cramer b.i.corbin.. There has been discussion about hospice, has expressed interest in inpatient hospice to the overnight physician Dr. Bird. But they have also discussed transfer back to [facility] for continuity of care. Call out to at this time currently no beds this morning. Patient is DNR/DNI with quite limited interventions. Imaging and workup was reviewed, patient did not have an MR on 08/30/2024 for his new onset seizure which was negative. Had witnessed seizure activity in the department last night. Discussed with patient he states his is his decision maker does not feel strongly about going inpatient hospice versus transfer to or here at [facility]. He was agreeable to small amount of fluid. On exam his tubes appear to all be in place, lungs are clear, heart rate is regular. 0940 Spoke with patients . She states he is doing much better that he could not really talk. She describes him having 4 5 seizures back to back and being unable to get him to eat or give him any of his medications. She states he was not really swallowing his medications she was trying to crush them and feed them through a syringe but was unsuccessful. She is interested in hospice but would really like to talk with his physicians through [facility]. She was hopeful to have him transferred down there. We did discuss that this may not happen today. She was very much open to chatting with our VESSEL TRAFFIC OFFICER today as well. Patients and family goal is comfort measures. Have not been able to accomplish this at home but would require inpatient hospice. VESSEL TRAFFIC OFFICER [facility] and accepted for inpatient with plan for transport tomorrow. and patient are agreeable. Signed out to Dr. Bird while awaiting transport tomorrow. Dr. bird-received sign-out from Dr. Abreu awaiting transport to inpatient hospice set up by VESSEL TRAFFIC OFFICER. We will be in the morning around 11:30 a.m. patient had no complications overnight Patient signed out to Dr.Baluyot Dr. Donaldson 0700: Patient was signed out to me by Dr. Bird, patient DNR DNI, hospice, awaiting transfer to outside hospice facility, no events overnight, we will continue to monitor Patient is to be discharged to hospice care facility given the fact that patient unable to be cared for at home by , patient already on palliative care, given continued/worsening symptoms of patient's seizures and inability to tolerate his chronic p.o. medications he will require higher level of care, however patient with a history of palliative chemotherapy for his cancers, who has power of supervisor show operations seeking hospice care therefore patient to be transferred to hospice facility. <Denisha Abreu, DO - Last Filed: 09/04/24 18:49> Lab Data Labs: Lab Results 09/03/24 Range/Units 17:56 WBC 15.1 H (4.5-11.0) X10^3/uL RBC 4.17 L (4.5-5.9) X10^6/uL Hgb 11.4 L (13.5-17.5) g/dL Hct 35.4 L (41-53) % MCV 84.9 (80-100) fL MCH 27.3 (26-34) PG MCHC 32.1 (30-36) % RDW 22.0 H (11.6-14.8) % Plt Count 427 H (150-400) X10^3/uL Neut % (Auto) 78.5 H (50-75) % Lymph % (Auto) 14.9 L (25-40) % [place] % (Auto) 6.0 (3-14) % Eos % (Auto) 0.1 L (2-4) % Baso % (Auto) 0.5 (0-2) % Neut # (Auto) 50022 H (9145-0514) /uL Lymph # (Auto) 2300 (0948-6152) /uL [place] # (Auto) 900 (0-900) /uL Eos # (Auto) 0 (0-450) /uL Baso # (Auto) 100 (0-100) /uL Nucleated RBCs Cancelled Hypersegmented Neuts Cancelled Hypogranular Neuts Cancelled Reactive Lymphocytes Cancelled Smudge Cells Cancelled Other Cell Type Cancelled Toxic Granulation Cancelled Toxic Vacuolation Cancelled Dohle Bodies Cancelled Jim Rods Cancelled WBC Morphology Comment Cancelled Platelet Estimate Cancelled Clumped Platelets Cancelled Plt Morphology Comment Cancelled RBC Morphology Cancelled Dimorphic RBCs Cancelled Polychromasia Cancelled Hypochromasia Cancelled Poikilocytosis Cancelled Basophilic Stippling Cancelled Anisocytosis Cancelled Microcytosis Cancelled Macrocytosis Cancelled Spherocytes Cancelled Pappenheimer Bodies Cancelled Sickle Cells Cancelled Target Cells Cancelled Tear Drop Cells Cancelled Ovalocytes Cancelled Stomatocytes Cancelled Helmet Cells Cancelled Maciel-[place] Bodies Cancelled [place] Rings Cancelled Sunny Cells Cancelled Acanthocytes (Spur) Cancelled Rouleaux Cancelled Schistocytes Cancelled PT 11.4 (9.4-12.5) SECONDS INR 1.0 (0.9-1.3) APTT 28 (25.1-36.5) SECONDS Sodium 134 L (137-145) mmol/L Potassium 3.7 (3.4-5.1) mmol/L Chloride 104 (98-107) mmol/L Carbon Dioxide 17 L (22-32) mmol/L BUN 13 (9-20) mg/dL Creatinine 1.13 (0.66-1.25) mg/dL Estimated GFR > 60 (>60) mL/min BUN/Creatinine Ratio 11.5 (6-22) Glucose 102 (80-110) mg/dL Lactate 1.1 (0.7-2.1) mmol/L Calcium 8.9 (8.4-10.2) mg/dL Total Bilirubin 0.7 (0.2-1.3) mg/dL AST 32 (17-59) IU/L ALT 13 (<50) IU/L Alkaline Phosphatase 88 (38-126) U/L Total Protein 6.0 L (6.3-8.2) g/dL Albumin 3.2 L (3.5-5.0) g/dL Globulin 2.8 (1.7-4.1) g/dL Albumin/Globulin Ratio 1.1 (1.0-2.8) Lipase 47 (23-300) U/L Procalcitonin 0.131 (<0.5) ng/mL Point of Care Testing Glucose POC 105 Urine Dip Bedside Urine Glucose Negative Bedside Urine Bilirubin - Negative Bedside Urine Ketone +/- 5 Urine Specific [place] 1.025 Bedside Urine Occult Blood + Bedside Urine pH 6.0 Bedside Urine Protein + 30 Bedside Urine Urobilinogen - Negative Bedside Urine Nitrite - Negative Bedside Urine Leukocytes + 70 Esterase MDM Narrative Medical decision making narrative: Patient is 78-year-old male chronically ill multiple cancers presenting today with ongoing seizure. Not able to have any p.o. meds contributing to ongoing seizure. He has not been evaluated for seizures. He has had MRI CT and significant workup for this this month. Again no mass or cause is found. Blood work has been reviewed Mild leukocytosis of 15 which is stable no anemia Electrolytes within normal limits carbon dioxide 17 consistent with seizure glucose 102 lactate 1.[address] does not show any intracranial process Chest x-ray no acute process At this time patient would benefit from admission for seizure control hospice and comfort care. Attempted to call left her a message also attempted to call daughter but no answer did call back explained the she ultimately once patient on hospice however concerned because might not be able to get him on hospice due to ongoing seizures. States the [facility] doctors would like him down at [facility] and she would like him transferred. Unfortunately [facility] does not have any PCU or ICU beds 09/04/[address] Abreu: Patient signed out to myself patient seen and evaluated by myself. He was alert but appears to be unable to swallow any sort of orals. We will continue with JACK de [place]. There has been discussion about hospice, has expressed interest in inpatient hospice to the overnight physician Dr. Bird. But they have also discussed transfer back to [facility] for continuity of care. Call out to at this time currently no beds this morning. Patient is DNR/DNI with quite limited interventions. Imaging and workup was reviewed, patient did not have an MR on 08/30/2024 for his new onset seizure which was negative. Had witnessed seizure activity in the department last night. Discussed with patient he states his is his decision maker does not feel strongly about going inpatient hospice versus transfer to or here at [facility]. He was agreeable to small amount of fluid. On exam his tubes appear to all be in place, lungs are clear, heart rate is regular. 0940 Spoke with patients . She states he is doing much better that he could not really talk. She describes him having 4 5 seizures back to back and being unable to get him to eat or give him any of his medications. She states he was not really swallowing his medications she was trying to crush them and feed them through a syringe but was unsuccessful. She is interested in hospice but would really like to talk with his physicians through [facility]. She was hopeful to have him transferred down there. We did discuss that this may not happen today. She was very much open to chatting with our VESSEL TRAFFIC OFFICER today as well. Patients and family goal is comfort measures. Have not been able to accomplish this at home but would require inpatient hospice. VESSEL TRAFFIC OFFICER [facility] and accepted for inpatient with plan for transport tomorrow. and patient are agreeable. Signed out to Dr. Bird while awaiting transport tomorrow. <Ruddy Donaldson, - Last Filed: 09/05/24 12:20> Lab Data Labs: Lab Results 09/03/24 Range/Units 17:56 WBC 15.1 H (4.5-11.0) X10^3/uL RBC 4.17 L (4.5-5.9) X10^6/uL Hgb 11.4 L (13.5-17.5) g/dL Hct 35.4 L (41-53) % MCV 84.9 (80-100) fL MCH 27.3 (26-34) PG MCHC 32.1 (30-36) % RDW 22.0 H (11.6-14.8) % Plt Count 427 H (150-400) X10^3/uL Neut % (Auto) 78.5 H (50-75) % Lymph % (Auto) 14.9 L (25-40) % [place] % (Auto) 6.0 (3-14) % Eos % (Auto) 0.1 L (2-4) % Baso % (Auto) 0.5 (0-2) % Neut # (Auto) 32857 H (4723-4235) /uL Lymph # (Auto) 2300 (5549-5648) /uL [place] # (Auto) 900 (0-900) /uL Eos # (Auto) 0 (0-450) /uL Baso # (Auto) 100 (0-100) /uL Nucleated RBCs Cancelled Hypersegmented Neuts Cancelled Hypogranular Neuts Cancelled Reactive Lymphocytes Cancelled Smudge Cells Cancelled Other Cell Type Cancelled Toxic Granulation Cancelled Toxic Vacuolation Cancelled Dohle Bodies Cancelled Jim Rods Cancelled WBC Morphology Comment Cancelled Platelet Estimate Cancelled Clumped Platelets Cancelled Plt Morphology Comment Cancelled RBC Morphology Cancelled Dimorphic RBCs Cancelled Polychromasia Cancelled Hypochromasia Cancelled Poikilocytosis Cancelled Basophilic Stippling Cancelled Anisocytosis Cancelled Microcytosis Cancelled Macrocytosis Cancelled Spherocytes Cancelled Pappenheimer Bodies Cancelled Sickle Cells Cancelled Target Cells Cancelled Tear Drop Cells Cancelled Ovalocytes Cancelled Stomatocytes Cancelled Helmet Cells Cancelled Maciel-[place] Bodies Cancelled Dalton Rings Cancelled Marathon Cells Cancelled Acanthocytes (Spur) Cancelled Rouleaux Cancelled Schistocytes Cancelled PT 11.4 (9.4-12.5) SECONDS INR 1.0 (0.9-1.3) APTT 28 (25.1-36.5) SECONDS Sodium 134 L (137-145) mmol/L Potassium 3.7 (3.4-5.1) mmol/L Chloride 104 (98-107) mmol/L Carbon Dioxide 17 L (22-32) mmol/L BUN 13 (9-20) mg/dL Creatinine 1.13 (0.66-1.25) mg/dL Estimated GFR > 60 (>60) mL/min BUN/Creatinine Ratio 11.5 (6-22) Glucose 102 (80-110) mg/dL Lactate 1.1 (0.7-2.1) mmol/L Calcium 8.9 (8.4-10.2) mg/dL Total Bilirubin 0.7 (0.2-1.3) mg/dL AST 32 (17-59) IU/L ALT 13 (<50) IU/L Alkaline Phosphatase 88 (38-126) U/L Total Protein 6.0 L (6.3-8.2) g/dL Albumin 3.2 L (3.5-5.0) g/dL Globulin 2.8 (1.7-4.1) g/dL Albumin/Globulin Ratio 1.1 (1.0-2.8) Lipase 47 (23-300) U/L Procalcitonin 0.131 (<0.5) ng/mL Point of Care Testing Glucose POC 105 Urine Dip Bedside Urine Glucose Negative Bedside Urine Bilirubin - Negative Bedside Urine Ketone +/- 5 Urine Specific [place] 1.025 Bedside Urine Occult Blood + Bedside Urine pH 6.0 Bedside Urine Protein + 30 Bedside Urine Urobilinogen - Negative Bedside Urine Nitrite - Negative Bedside Urine Leukocytes + 70 Esterase MDM Narrative Medical decision making narrative: Patient is 78-year-old male chronically ill multiple cancers presenting today with ongoing seizure. Not able to have any p.o. meds contributing to ongoing seizure. He has not been evaluated for seizures. He has had MRI CT and significant workup for this this month. Again no mass or cause is found. Blood work has been reviewed Mild leukocytosis of 15 which is stable no anemia Electrolytes within normal limits carbon dioxide 17 consistent with seizure glucose 102 lactate 1.[address] does not show any intracranial process Chest x-ray no acute process At this time patient would benefit from admission for seizure control hospice and comfort care. Attempted to call left her a message also attempted to call daughter but no answer did call back explained the she ultimately once patient on hospice however concerned because might not be able to get him on hospice due to ongoing seizures. States the [facility] doctors would like him down at [facility] and she would like him transferred. Unfortunately [facility], does not have any PCU or ICU beds 09/04/[address] Abreu: Patient signed out to myself patient seen and evaluated by myself. He was alert but appears to be unable to swallow any sort of orals. We will continue with IV Keppra b.i.d.. There has been discussion about hospice, has expressed interest in inpatient hospice to the overnight physician Dr. Bird. But they have also discussed transfer back to [facility] for continuity of care. Call out to at this time currently no beds this morning. Patient is DNR/DNI with quite limited interventions. Imaging and workup was reviewed, patient did not have an MR on 08/30/2024 for his new onset seizure which was negative. Had witnessed seizure activity in the department last night. Discussed with patient he states his is his decision maker does not feel strongly about going inpatient hospice versus transfer to or here at [facility]. He was agreeable to small amount of fluid. On exam his tubes appear to all be in place, lungs are clear, heart rate is regular. 0940 Spoke with patients . She states he is doing much better that he could not really talk. She describes him having 4 5 seizures back to back and being unable to get him to eat or give him any of his medications. She states he was not really swallowing his medications she was trying to crush them and feed them through a syringe but was unsuccessful. She is interested in hospice but would really like to talk with his physicians through [facility]. She was hopeful to have him transferred down there. We did discuss that this may not happen today. She was very much open to chatting with our VESSEL TRAFFIC OFFICER today as well. Patients and family goal is comfort measures. Have not been able to accomplish this at home but would require inpatient hospice. VESSEL TRAFFIC OFFICER spoke [facility] and accepted for inpatient with plan for transport tomorrow. and patient are agreeable. Signed out to Dr. Bird while awaiting transport tomorrow. Dr. bird-received sign-out from Dr. Abreu awaiting transport to inpatient hospice set up by VESSEL TRAFFIC OFFICER. We will be in the morning around 11:30 a.m. patient had no complications overnight Patient signed out to Dr.Balyuot Dr. Donaldson 0700: Patient was signed out to me by Dr. Bird, patient DNR DNI, hospice, awaiting transfer to outside hospice facility, no events overnight, we will continue to monitor Patient is to be discharged to hospice care facility given the fact that patient unable to be cared for at home by , patient already on palliative care, given continued/worsening symptoms of patient's seizures and inability to tolerate his chronic p.o. medications he will require higher level of care, however patient with a history of palliative chemotherapy for his cancers, who has power of supervisor show operations seeking hospice care therefore patient to be transferred to hospice facility. Discharge Plan Departure Patient Disposition: [facility] Clinical Impression: Seizure, Hospice care Prescriptions: No Action sulfamethoxazole-trimethoprim [Bactrim DS] 800-160 mg tablet 1 tab PO BID 10 Days Qty: 20 0RF levetiracetam [Keppra] 500 mg tablet 500 mg PO Q12H 30 Days Qty: 60 0RF sulfamethoxazole-trimethoprim [Bactrim DS] 800-160 mg tablet 1 tab PO BID 10 Days Qty: 20 0RF fluconazole [Diflucan] 100 mg tablet 100 mg PO DAILY Qty: 14 0RF oxycodone 5 mg capsule 5 mg PO TID PRN (Reason: pain) Qty: 10 0RF oxycodone 5 mg tablet 5 mg PO Q6H PRN (Reason: pain) Qty: 10 0RF ciprofloxacin HCl 500 mg tablet 500 mg PO Q12H Qty: 20 0RF hydroxyzine pamoate 25 mg capsule 25 mg PO Q6H PRN (Reason: anxiety) paroxetine HCl 20 mg tablet 40 mg PO ONCE PM amlodipine 10 mg tablet 10 mg PO DAILY Referrals: Diego Green MD [Primary Care Provider] -
[2024-09-04] VITALS (50 sets, daily range): BP systolic 103–142; BP diastolic 58–79; PULSE 83–96; RESP 11–59; TEMP 37.1; O2SAT 96–99
--- NOTE | 2024-09-04 05:17 | PC.NURSE ---
KNOTTER HAND note: Attempting to transfer patient to [facility], per family's request. 09/03/24 at 2332 I spoke with Amanda at the transfer center. She stated they had no PCU beds or ICU beds if that was what I was looking for, but she had a code stroke and would call us back. I updated Dr. Bailey. At 0058, I called back and spoke to Wes at the transfer center. She stated that patient would need an ICU or PCU bed, and they don't have those, and they don't have a wait list, but to call back in the morning. Let Dr. Bailey know.
[2024-09-04] MEDS: levETIRAcetam 500 MG in SODIUM CHLORIDE 0.9% 100 ML 420 MG IV ×2 (07:42→20:19)
[2024-09-04] MEDS: SODIUM CHLORIDE 0.9% 1,000 ML 125 ML IV (08:09)
--- NOTE | 2024-09-04 09:06 | PC.NURSE ---
Pt A&Ox4, denies any pain, VSS, bilateral neph tubes and suprapubic site clean dry and intact, draining yellow colored urine. Pt stated he was hungry, Dr. Brady payne applesauce, Pt ate 100% of applesauce. Meal tray orderd. Maintenance fluids running as ordered. Pt repositioned and moved to a hospital bed. No signs of skin breakdown at this time.
--- NOTE | 2024-09-04 10:15 | PC.NURSE ---
Pt turned to right side, All lines repositioned and not touching skin. Heels floated. Pt denies any pain currently
--- NOTE | 2024-09-04 17:26 | CM.SWNOTE ---
ED ENGINEERING DIRECTOR Note Patient is 78 y/o male who presents to the ED due to concern for seizures, patient has had 3 other similar presentations to the ED for this in the last week. It is reported that patient has been unable to take seizure medication or eat in recent days. Patient's PCP is Dr. Diego Green, patient has Medicare and [employer] insurance. Patient has hx of metastatic bladder squamous cell carcinoma, metastatic castrate resistant prostate cancer, and lung cancer. Patient receives palliative chemotherapy from [facility]. ED provider discussed with spouse transfer to per spouse's request, it was identified that transferring to is not likely to happen quickly. ENGINEERING DIRECTOR enters room to meet with patient and spouse. Patient presents as somnolent and resting. Spouse and patient reside in [place]. It is reported that spouse is the primary caregiver and had a recent back injury and has limitations with caring for patient. ENGINEERING DIRECTOR discusses Hospice at home vs. inpatient Hospice at [facility]. Patient's spouse endorses preference for [facility]osp[facility] given her limitations at home. Patient states she has a daughter in [place] and a daughter in [place], it is reported that they are not able to assist with patient at this time and patient states she cannot afford a caregiver. ENGINEERING DIRECTOR encourages spouse to speak with the palliative care team at [facility]. Spouse does so and endorses preference for [facility]ospice [facility] if patient cannot transfer to [facility]. ENGINEERING DIRECTOR faxes referral to [facility]. They report that they can accept patient for tomorrow at 1300. ENGINEERING DIRECTOR discusses this with patient's spouse and schedules A S transport for 11:30 AM tomorrow. Plan: patient to transfer to [facility] via S tomorrow. RICARDO Bolanos
--- NOTE | 2024-09-04 21:29 | PC.NURSE ---
pt A/Ox3. resting in hospital bed. Pt turned and cleaned up/pericare at 21:20. Blanchable pink buttocks and sacrum. Pt's was here earlier and fed pt large amount of mashed potatoes. Bilat nephrostomy tubes draining yellow urine, dressing CDI. Suprapubic catheter draining yellow urine, dressing CDI. VSS.
--- NOTE | 2024-09-04 23:45 | PC.NURSE ---
Provided pericare and turned pt. changed suprapubic cath dressing.
[2024-09-05] VITALS (18 sets, daily range): BP systolic 127–152; BP diastolic 69–93; PULSE 80–92; RESP 16–51; O2SAT 95–99
--- NOTE | 2024-09-05 04:30 | PC.NURSE ---
Changed pt's brief, did pericare and turned pt. Pt had 250ml oral fluid intake. pt resting in bed, call light in reach.
[2024-09-05] MEDS: levETIRAcetam 500 MG in SODIUM CHLORIDE 0.9% 100 ML 420 MG IV (07:30)
--- NOTE | 2024-09-05 12:27 | CM.SWNOTE ---
ED GENERAL ASSIGNMENT REPORTER Note [facility] arrives and states they need a POLST form in order to transport him to [facility]. GENERAL ASSIGNMENT REPORTER calls patient's spouse she reports she has an advanced directive and can bring it to the hospital. Patient's spouse arrives with a partially completed advanced directive that is not signed. Patient's spouse and ED provider complete and sign POLST form, patient is DNR/DNI. Original copy in transfer packet, electronic copy scanned into EMR. GENERAL ASSIGNMENT REPORTER calls [facility] regarding this and regarding delays. Patient to transfer to [facility] via RICARDO Villa
== END 2024-09-05 13:03 ==
PROVIDERS: Emergency Medicine; Emergency Provider Student in an Organized Health Care Education/Training Program; PCP Internal Medicine
DX: R56.9 Unspecified convulsions (principal); Z51.5 Encounter for palliative care; C67.9 Malignant neoplasm of bladder, unspecified; C61 Malignant neoplasm of prostate; C34.90 Malignant neoplasm of unspecified part of unspecified bronchus or lung
CPT/HCPCS: 36415; 70450; 71045; 80053; 81003; 82962; 83605; 83690; 84145; 85025; 85610; 85730; 87040; 93005; 93010; 96365; 96366; 96375; 99284; 99285; J1953; J2060